=== PATIENT | female | born 1955 | race Caucasian/White ===

== ENCOUNTER → 2019-06-06 12:52 | Outpatient (CLI) | payer OTHER, SELFPAY ==
[2019-06-06 13:28] LABS: D Dimer 201 ng/mL (<230)
== END ==
PROVIDERS: PCP Physician Assistant; Visit Provider Physician Assistant
DX: R06.02 Shortness of breath (principal)
CPT/HCPCS: 36415; 85379

== ENCOUNTER → 2020-06-14 11:07 | Outpatient (CLI) | payer MEDICARE, OTHER, SELFPAY ==
--- NOTE | 2020-06-14 | DI.RAD.S_ITS ---
PROCEDURE: XR SHOULDER RT MIN 2V INDICATIONS: BILATERAL SHOULDER PAIN TECHNIQUE: 3 views of the shoulder were acquired. COMPARISON: None. FINDINGS: Bones: No fracture. [id number] right shoulder joint degeneration at the AC and glenohumeral articulation. Scattered degenerative subchondral sclerosis and spurring. Soft tissues: No suspicious soft tissue calcifications. IMPRESSION: Right shoulder joint degeneration. If the patient's pain or other symptoms persist, consider further evaluation with MRI Dictated by: Prince Aranda M.D. on 06/14/2020 at 12:39 Approved by: Prince Aranda M.D. on 06/14/2020 at 12:43
--- NOTE | 2020-06-14 | DI.RAD.S_ITS ---
PROCEDURE: XR SHOULDER LT MIN 2V INDICATIONS: BILATERAL SHOULDER PAIN TECHNIQUE: 3 views of the shoulder were acquired. COMPARISON: None. FINDINGS: Bones: No fractures or dislocations. No suspicious bony lesions. Visualized ribs appear intact. AC and glenohumeral joint degeneration, moderate. Soft tissues: No suspicious soft tissue calcifications. IMPRESSION: Moderate left shoulder joint degeneration. If the patient's pain or other symptoms persist, consider further evaluation with MRI Dictated by: Prince Aranda M.D. on 06/14/2020 at 12:43 Approved by: Prince Aranda M.D. on 06/14/2020 at 12:46
== END ==
PROVIDERS: PCP Physician Assistant; Referring Provider Physician Assistant; Visit Provider Physician Assistant
DX: M77.9 Enthesopathy, unspecified (principal); M25.512 Pain in left shoulder; M25.511 Pain in right shoulder; M19.011 Primary osteoarthritis, right shoulder; M19.012 Primary osteoarthritis, left shoulder
CPT/HCPCS: 73030

== ENCOUNTER 2020-09-27 11:15 | Outpatient (RCR) | payer MEDICARE, OTHER, SELFPAY ==
--- NOTE | 2020-07-16 16:15 | PT.OIE ---
Current Diagnoses Enthesopathy, unspecified (07/16/20) Visit Care Team Role Provider Type Neema Mac PA-C Attending Provider Non-Staff Family Provider Primary Care Provider Referring Provider Specialty: Internal Medicine Address: [address] [place] [address], [id number] Email: Physical Therapy Initial Evaluation PT-OP-A Visit Information Start: 07/16/20 08:10 Freq: Status: Active Protocol: Document 07/16/20 15:42 HH (Rec: 07/16/20 16:15 HH [email or web address]) Out-Patient Physical Therapy Visit Information Visit Information Visit Type Initial Evaluation Visit Start Time 11:15 Visit Stop Time 12:00 Total Visit Minutes 45 Visit Number 07/30 Number of INTERNET SALES ASSOCIATE Visits 0 Evaluation Information Evaluation Date 07/16/20 PT-OP-B Current Condition Start: 07/16/20 08:10 Freq: Status: Active Protocol: Document 07/16/20 15:42 HH (Rec: 07/16/20 16:15 HH [email or web address]) Current Condition History of Current Condition Onset Date a year ago Current Complaints Bilateral shoulder pain L>R, unable to reach overhead and her back History of Current Condition This is a 64 yo female here for worsening bilateral shoulder pain, L slightly worse than R. She stated she has been having shoulder pain for many years but it has been getting significantly worse since a year ago but she does not know why. Her pain is 3/10 normally. She can not lift her arms over 90 abduction and needs to external rotate her arm to reach overhead but with pain. She is unable to reach for her 2nd level of the shelf for cups and glasses. Her pain also keeps her awake at night who is unable to sleep on her side now. She also difficulty fernando/ doff her bra and shirts d/t limited mobility and pain. She does have shooting pain/ numbness down his elbow and pinky finger occasionally. Pt loves skiing and would like to return to this hobby once COVID pandemic is over. Prior Treatments and Tests X-ray R [facility] 06/14/20 IMPRESSION: Right shoulder joint degeneration. If the patient's pain or other symptoms persist, consider further evaluation with MRI X-ray L [facility] 06/14/20 IMPRESSION: Moderate left shoulder joint degeneration. If the patient's pain or other symptoms persist, consider further evaluation with MRI Treatment Goals Patient/Caregiver Goals 1. to regain her shoulder mobility so she can reach overhead 2. to regain her shoulder strength so she can return to skiing PT-OP-C Subjective Start: 07/16/20 08:10 Freq: Status: Active Protocol: Document 07/16/20 15:42 (Rec: 07/16/20 16:15 [email or web address]) Patient Questionnaires Quick Dash- Upper Extremity Quick Dash UE Score 31.81 Quick Dash UE Impairment 20 to 39% Impaired (Score 20- 39) PT-OP-E Functional Tests Start: 07/16/20 08:10 Freq: Status: Active Protocol: Document 07/16/20 15:42 (Rec: 07/16/20 16:15 [email or web address]) Functional Tests Apley's Scratch Test Action 1- Left pain at AC joint region Action 1- Right WFL, no pain Action 2- Left L upper trap d/t pain Action 2- Right T2 Action 3- Left L SIJ Action 3- Right R SIJ PT-OP-F Manual Assessment Start: 07/16/20 08:10 Freq: Status: Active Protocol: Document 07/16/20 15:42 (Rec: 07/16/20 16:15 [email or web address]) Manual Assessments Soft Tissue Assessment Soft Tissue Mobility Assessment tenderness noted with mod pressure at infraspinatus and teres minor bilaterally PT-OP-K Range of Motion Start: 07/16/20 08:10 Freq: Status: Active Protocol: Document 07/16/20 15:42 (Rec: 07/16/20 16:15 [email or web address]) Cervical Spine Range of Motion Cervical Spine Active Degrees Testing Position Sitting Lateral Flexion Left 16 Lateral Flexion Right 26 ROM Limitations Soft Tissue Tightness,Pain Comments radiating pain and numbness at 5th digit (R worse than L) Shoulder Goniometric Range of Motion Shoulder Right Active Shoulder ROM WFL No Testing Position Sitting Flexion 137 Extension 40 Abduction 105 External Rotation at 90 degrees 47 Abduction Internal Rotation 66 Left Active Shoulder ROM WFL No Testing Position Standing Flexion 140 Extension 36 Abduction 100 External Rotation at 90 degrees 74 Abduction Internal Rotation 76 Comments pain abd> flexion> IR/ER and extension Shoulder ROM Limitations Shoulder ROM Limitations Soft Tissue Tightness,Muscle Weakness,Pain PT-OP-L Special Tests Start: 07/16/20 08:10 Freq: Status: Active Protocol: Document 07/16/20 15:42 (Rec: 07/16/20 16:15 [email or web address]) Special Tests Cervical Spine Special Tests Spurling's Test Test Results +VE B Comments R> L, tingling sensation at 5th digit Shoulder Special Tests Drop Arm Rotator Cuff Test Results -ve Empty Can Test Results -ve Neer Impingement Test Results +VE L PT-OP-M Strength Start: 07/16/20 08:10 Freq: Status: Active Protocol: Document 07/16/20 15:42 (Rec: 07/16/20 16:15 [email or web address]) Shoulder Strength Shoulder Manual Muscle Testing Right Flexion 4- Good- Extension 3+ Fair+ Abduction (C5) 3+ Fair+ Adduction 4- Good- External Rotation 4- Good- Internal Rotation 4- Good- Left Flexion 4- Good- Extension 3+ Fair+ Abduction (C5) 3+ Fair+ External Rotation 3+ Fair+ Internal Rotation 3+ Fair+ PT-OP-Q Treatments Start: 07/16/20 08:10 Freq: Status: Active Protocol: Document 07/16/20 15:42 (Rec: 07/16/20 16:15 [email or web address]) Self-Care/Home Management Treatment Education Patient Education Body Mechanics,Home Exercise Program,Joint Protection,Pain Management,Posture,Safety Other Education educated pt to acquire overhead roger for HEP. Explained PT role, POC and prognosis. PT-OP-T Assessment and Plan Start: 07/16/20 08:10 Freq: Status: Active Protocol: Document 07/16/20 15:42 (Rec: 07/16/20 16:15 [email or web address]) Physical Therapy Assessment Rehab Potential Rehabilitation Potential Excellent Evaluation Complexity Number of Personal Factors/Comorbidities 1-2 Number of Body Systems Impaired 1-2 Clinical Presentation at Evaluation Stable Impairments Impairments Activity Tolerance,Functional Activities,Functional Mobility ,Pain,Posture,ROM,Sensation, Soft Tissue Mobility,Strength Goals sleep Impairment pt currently is unable to sleep on her side d/t pain Anatomic Pathology Manager Goal (LTG) pt will be able to sleep either her L/R side with no complaints of discomfort. LTG Duration 12 weeks neuro-sign Impairment reports of tingling and numbness down her pinky fingers Skilled Nursing Goal (LTG) pt will not have tingling/ numbness down to her pinky fingers by improving her neural sensitivity. LTG Duration 12 weeks ROM Impairment pt lacks of ROM in all different anatomical planes Short Term Goal (STG) pt will gain > 10 degrees of ROM in all different planes to improve her mobility STG Duration 6 weeks Anatomic Pathology Manager Goal (LTG) pt will gain > 15 degrees of ROM in all different planes so she can reach the second level of the shelf for cups/ glassess LTG Duration 12 weeks Quickdash Impairment pt scores 31.81 on 1/5 Short Term Goal (STG) pt will score lower than 25 on quickdash to improver her overall shoulder functionality STG Duration 6 weeks Anatomic Pathology Manager Goal (LTG) pt will score lower than 20 on Quickdash to improve her pain , mobility and strength so she can return to skiiing. LTG Duration 12 weeks Assessment Summary Assessment This is a 64yo female here for B shoulder pain >1 year, along with neurological signs to her pinky fingers. Upon assessment, pt presents bilateral frozen shoulders who has very limited AROM Abd> flexion> extension > IR/ER bilaterally, along with strength loss. She also has possible cervical radiculopathy d/t experiencing tingling and numbness sensation bilaterally with cervical lateral flexion to L/ R and Spurling test. Pt will benefit from skilled therapy to improve her neural sensitivity, shoulder ROM, strength in order for her to have better sleep, overhead mobility and retrun to her hobby--skiing. Physical Therapy Plan Frequency and Duration Frequency of Treatment 2x/wk x 8 then 1x/wk Duration of Treatment 12 weeks Plan of Care Start Date 07/16/19 Plan of Care End Date 10/14/20 Therapeutic Interventions Therapeutic Interventions Home Exercise Program,Joint Mobilizations,Manual Therapy, Neuromuscular Re-education, Patient/Caregiver Education, Self-Care/Home Management,Soft Tissue Mobilization,Taping, Therapeutic Activities, Therapeutic Exercises Modalities Cold Pack/Ice Massage,Electric Stimulation,Hot Packs, Infrared Therapy,Traction- Mechanical,Ultrasound Next Visit Focus/Plan Next Note Type Treatment Note Next Visit Plan OH roger, PROM, AROM cervical distraction door stretch neck stretch (lateral flexion) ulnar nerve glide
--- NOTE | 2020-07-16 16:16 | PT.OPPOC ---
Physical, Occupational & Speech Therapy At [facility] Current Diagnoses Enthesopathy, unspecified (07/16/20) Visit Care Team Role Provider Type Neeam Mac PA-C Attending Provider Non-Staff Family Provider Primary Care Provider Referring Provider Specialty: Internal Medicine Address: [address] [place] [address], [id number] Email: Plan Of Care PT-OP-T Assessment and Plan Start: 07/16/20 08:10 Freq: Status: Active Protocol: Document 07/16/20 15:42 (Rec: 07/16/20 16:15 [email or web address]) Physical Therapy Assessment Rehab Potential Rehabilitation Potential Excellent Evaluation Complexity Number of Personal Factors/Comorbidities 1-2 Number of Body Systems Impaired 1-2 Clinical Presentation at Evaluation Stable Impairments Impairments Activity Tolerance,Functional Activities,Functional Mobility ,Pain,Posture,ROM,Sensation, Soft Tissue Mobility,Strength Goals sleep Impairment pt currently is unable to sleep on her side d/t pain Rug Repairer Goal (LTG) pt will be able to sleep either her L/R side with no complaints of discomfort. LTG Duration 12 weeks neuro-sign Impairment reports of tingling and numbness down her pinky fingers Long-Term Goal (LTG) pt will not have tingling/ numbness down to her pinky fingers by improving her neural sensitivity. LTG Duration 12 weeks ROM Impairment pt lacks of ROM in all different anatomical planes Short Term Goal (STG) pt will gain > 10 degrees of ROM in all different planes to improve her mobility STG Duration 6 weeks Rug Repairer Goal (LTG) pt will gain > 15 degrees of ROM in all different planes so she can reach the second level of the shelf for cups/ glassess LTG Duration 12 weeks Quickdash Impairment pt scores 31.81 on 1/5 Short Term Goal (STG) pt will score lower than 25 on quickdash to improver her overall shoulder functionality STG Duration 6 weeks Long-Term Goal (LTG) pt will score lower than 20 on Quickdash to improve her pain , mobility and strength so she can return to skiiing. LTG Duration 12 weeks Assessment Summary Assessment This is a 64yo female here for B shoulder pain >1 year, along with neurological signs to her pinky fingers. Upon assessment, pt presents bilateral frozen shoulders who has very limited AROM Abd> flexion> extension > IR/ER bilaterally, along with strength loss. She also has possible cervical radiculopathy d/t experiencing tingling and numbness sensation bilaterally with cervical lateral flexion to L/ R and Spurling test. Pt will benefit from skilled therapy to improve her neural sensitivity, shoulder ROM, strength in order for her to have better sleep, overhead mobility and retrun to her hobby--skiing. Physical Therapy Plan Frequency and Duration Frequency of Treatment 2x/wk x 8 then 1x/wk Duration of Treatment 12 weeks Plan of Care Start Date 07/16/19 Plan of Care End Date 10/14/20 Therapeutic Interventions Therapeutic Interventions Home Exercise Program,Joint Mobilizations,Manual Therapy, Neuromuscular Re-education, Patient/Caregiver Education, Self-Care/Home Management,Soft Tissue Mobilization,Taping, Therapeutic Activities, Therapeutic Exercises Modalities Cold Pack/Ice Massage,Electric Stimulation,Hot Packs, Infrared Therapy,Traction- Mechanical,Ultrasound Next Visit Focus/Plan Next Note Type Treatment Note Next Visit Plan OH roger, PROM, AROM cervical distraction door stretch neck stretch (lateral flexion) ulnar nerve glide Plan of Care Dates Plan of Care Start Date 07/16/19 Plan of Care End Date 10/14/20 Electronically Signed by: Renetta Worrell PT 07/16/20 [id number] Please Sign and Return: I have reviewed this Plan of Care and certify that the skilled therapy services above are required to meet the patient?s needs. Physician Signature Date Printed Name and Credentials Clinical Instructor Signature Printed Name and Credentials
--- NOTE | 2020-07-18 16:14 | PT.OTN ---
Current Diagnoses Enthesopathy, unspecified (07/18/20) Physical Therapy Treatment Note PT-OP-A Visit Information Start: 07/16/20 08:10 Freq: Status: Active Protocol: Document 07/18/20 14:33 HH (Rec: 07/18/20 16:07 [id number]) Out-Patient Physical Therapy Visit Information Visit Information Visit Type Treatment Note Visit Start Time 14:33 Visit Stop Time 15:15 Total Visit Minutes 43 Visit Number / Number of CLAM GROWER Visits 0 PT-OP-B Current Condition Start: 07/16/20 08:10 Freq: Status: Active Protocol: Document 07/16/20 15:42 HH (Rec: 07/16/20 16:15 [email or web address]) Current Condition History of Current Condition Onset Date a year ago Current Complaints Bilateral shoulder pain L>R, unable to reach overhead and her back History of Current Condition This is a 64 yo female here for worsening bilateral shoulder pain, L slightly worse than R. She stated she has been having shoulder pain for many years but it has been getting significantly worse since a year ago but she does not know why. Her pain is 3/10 normally. She can not lift her arms over 90 abduction and needs to external rotate her arm to reach overhead but with pain. She is unable to reach for her 2nd level of the shelf for cups and glasses. Her pain also keeps her awake at night who is unable to sleep on her side now. She also difficulty fernando/ doff her bra and shirts d/t limited mobility and pain. She does have shooting pain/ numbness down his elbow and pinky finger occasionally. Pt loves skiing and would like to return to this hobby once COVID pandemic is over. Prior Treatments and Tests X-ray R d 06/14/20 IMPRESSION: Right shoulder joint degeneration. If the patient's pain or other symptoms persist, consider further evaluation with MRI X-ray L [facility] 06/14/20 IMPRESSION: Moderate left shoulder joint degeneration. If the patient's pain or other symptoms persist, consider further evaluation with MRI Treatment Goals Patient/Caregiver Goals 1. to regain her shoulder mobility so she can reach overhead 2. to regain her shoulder strength so she can return to skiing PT-OP-C Subjective Start: 07/16/20 08:10 Freq: Status: Active Protocol: Document 07/18/20 14:33 (Rec: 07/18/20 16:07 [id number]) OP-PT Subjective Patient Comments Patient Comments Im excited for starting PT PT-OP-E Functional Tests Start: 07/16/20 08:10 Freq: Status: Active Protocol: Document 07/16/20 15:42 (Rec: 07/16/20 16:15 [email or web address]) Functional Tests Apley's Scratch Test Action 1- Left pain at AC joint region Action 1- Right WFL, no pain Action 2- Left L upper trap d/t pain Action 2- Right T2 Action 3- Left L SIJ Action 3- Right R SIJ PT-OP-F Manual Assessment Start: 07/16/20 08:10 Freq: Status: Active Protocol: Document 07/16/20 15:42 (Rec: 07/16/20 16:15 [email or web address]) Manual Assessments Soft Tissue Assessment Soft Tissue Mobility Assessment tenderness noted with mod pressure at infraspinatus and teres minor bilaterally PT-OP-K Range of Motion Start: 07/16/20 08:10 Freq: Status: Active Protocol: Document 07/16/20 15:42 (Rec: 07/16/20 16:15 [email or web address]) Cervical Spine Range of Motion Cervical Spine Active Degrees Testing Position Sitting Lateral Flexion Left 16 Lateral Flexion Right 26 ROM Limitations Soft Tissue Tightness,Pain Comments radiating pain and numbness at 5th digit (R worse than L) Shoulder Goniometric Range of Motion Shoulder Right Active Shoulder ROM WFL No Testing Position Sitting Flexion 137 Extension 40 Abduction 105 External Rotation at 90 degrees 47 Abduction Internal Rotation 66 Left Active Shoulder ROM WFL No Testing Position Standing Flexion 140 Extension 36 Abduction 100 External Rotation at 90 degrees 74 Abduction Internal Rotation 76 Comments pain abd> flexion> IR/ER and extension Shoulder ROM Limitations Shoulder ROM Limitations Soft Tissue Tightness,Muscle Weakness,Pain PT-OP-L Special Tests Start: 07/16/20 08:10 Freq: Status: Active Protocol: Document 07/16/20 15:42 (Rec: 07/16/20 16:15 [email or web address]) Special Tests Cervical Spine Special Tests Spurling's Test Test Results +VE B Comments R> L, tingling sensation at 5th digit Shoulder Special Tests Drop Arm Rotator Cuff Test Results -ve Empty Can Test Results -ve Neer Impingement Test Results +VE L PT-OP-M Strength Start: 07/16/20 08:10 Freq: Status: Active Protocol: Document 07/16/20 15:42 (Rec: 07/16/20 16:15 [email or web address]) Shoulder Strength Shoulder Manual Muscle Testing Right Flexion 4- Good- Extension 3+ Fair+ Abduction (C5) 3+ Fair+ Adduction 4- Good- External Rotation 4- Good- Internal Rotation 4- Good- Left Flexion 4- Good- Extension 3+ Fair+ Abduction (C5) 3+ Fair+ External Rotation 3+ Fair+ Internal Rotation 3+ Fair+ PT-OP-Q Treatments Start: 07/16/20 08:10 Freq: Status: Active Protocol: Document 07/18/20 14:33 (Rec: 07/18/20 16:07 [id number]) Therapeutic Exercises Supine Exercises supine chest stretch Equipment Used with foam roller Comments for HEP tennis ball Supine Exercise Name on infraspinatus Side bilateral Comments for HEP Sitting Exercises upper trap stretch Side bilateral Comments cervical lateral flexion, HEP OH roger Sitting Exercise Name flexion, abduction and reaching behind back Side bilateral Equipment Used OH roger Comments for HEP Manual Therapy Treatment Soft Tissue Mobilization RTC Body Location infraspinatus Mobilization Type Sustained Pressure,Trigger Point Release Intensity/Depth Moderate Body Position Sidelying Comments significant tightness but improved after pecs Body Location major and minor Mobilization Type Sustained Pressure,Trigger Point Release Intensity/Depth Moderate Body Position Supine Comments significant tightness but improved after PT-OP-T Assessment and Plan Start: 07/16/20 08:10 Freq: Status: Active Protocol: Document 07/18/20 14:33 (Rec: 07/18/20 16:07 [id number]) Physical Therapy Assessment Goals sleep Impairment pt currently is unable to sleep on her side d/t pain Live Study Manager Goal (LTG) pt will be able to sleep either her L/R side with no complaints of discomfort. LTG Duration 12 weeks neuro-sign Impairment reports of tingling and numbness down her pinky fingers Live Study Manager Goal (LTG) pt will not have tingling/ numbness down to her pinky fingers by improving her neural sensitivity. LTG Duration 12 weeks ROM Impairment pt lacks of ROM in all different anatomical planes Short Term Goal (STG) pt will gain > 10 degrees of ROM in all different planes to improve her mobility STG Duration 6 weeks Live Study Manager Goal (LTG) pt will gain > 15 degrees of ROM in all different planes so she can reach the second level of the shelf for cups/ glassess LTG Duration 12 weeks Quickdash Impairment pt scores 31.81 on 1/5 Short Term Goal (STG) pt will score lower than 25 on quickdash to improver her overall shoulder functionality STG Duration 6 weeks [facility] Goal (LTG) pt will score lower than 20 on Quickdash to improve her pain , mobility and strength so she can return to skiiing. LTG Duration 12 weeks Assessment Summary Assessment Pt lucas session which focuses on manual therapy to reduce tightness RTC and pecs tightness. Pt has immediate improved AROM after. Added pulleys, tennis ball release, pecs stretch for HEP. Physical Therapy Plan Frequency and Duration Frequency of Treatment 2x/wk x 8 then 1x/wk Duration of Treatment 12 weeks Plan of Care Start Date 07/16/19 Plan of Care End Date 10/14/20 Next Visit Focus/Plan Next Note Type Treatment Note Next Visit Plan OH roger, PROM, AROM cervical distraction door stretch neck stretch (lateral flexion) ulnar nerve glide
--- NOTE | 2020-07-22 16:13 | PT.OTN ---
Current Diagnoses Enthesopathy, unspecified (07/22/20) Physical Therapy Treatment Note PT-OP-A Visit Information Start: 07/16/20 08:10 Freq: Status: Active Protocol: Document 07/22/20 14:35 HH (Rec: 07/22/20 16:12 [id number]) Out-Patient Physical Therapy Visit Information Visit Information Visit Type Treatment Note Visit Start Time 14:31 Visit Stop Time 15:15 Total Visit Minutes 44 Visit Number 09/27 Number of ENERGY SCHEDULER Visits 0 PT-OP-B Current Condition Start: 07/16/20 08:10 Freq: Status: Active Protocol: Document 07/16/20 15:42 HH (Rec: 07/16/20 16:15 [email or web address]) Current Condition History of Current Condition Onset Date a year ago Current Complaints Bilateral shoulder pain L>R, unable to reach overhead and her back History of Current Condition This is a 64 yo female here for worsening bilateral shoulder pain, L slightly worse than R. She stated she has been having shoulder pain for many years but it has been getting significantly worse since a year ago but she does not know why. Her pain is 3/10 normally. She can not lift her arms over 90 abduction and needs to external rotate her arm to reach overhead but with pain. She is unable to reach for her 2nd level of the shelf for cups and glasses. Her pain also keeps her awake at night who is unable to sleep on her side now. She also difficulty fernando/ doff her bra and shirts d/t limited mobility and pain. She does have shooting pain/ numbness down his elbow and pinky finger occasionally. Pt loves skiing and would like to return to this hobby once COVID pandemic is over. Prior Treatments and Tests X-ray R d 06/14/20 IMPRESSION: Right shoulder joint degeneration. If the patient's pain or other symptoms persist, consider further evaluation with MRI X-ray L [facility] 06/14/20 IMPRESSION: Moderate left shoulder joint degeneration. If the patient's pain or other symptoms persist, consider further evaluation with MRI Treatment Goals Patient/Caregiver Goals 1. to regain her shoulder mobility so she can reach overhead 2. to regain her shoulder strength so she can return to skiing PT-OP-C Subjective Start: 07/16/20 08:10 Freq: Status: Active Protocol: Document 07/22/20 14:35 (Rec: 07/22/20 16:12 [id number]) OP-PT Subjective Patient Comments Patient Comments My R shoulder is already getting better and i do have soreness around my shoulders but my tingling and numbness on R side is better too. Patient Reported Progress Improving PT-OP-E Functional Tests Start: 07/16/20 08:10 Freq: Status: Active Protocol: Document 07/16/20 15:42 (Rec: 07/16/20 16:15 [email or web address]) Functional Tests Apley's Scratch Test Action 1- Left pain at AC joint region Action 1- Right WFL, no pain Action 2- Left L upper trap d/t pain Action 2- Right T2 Action 3- Left L SIJ Action 3- Right R SIJ PT-OP-F Manual Assessment Start: 07/16/20 08:10 Freq: Status: Active Protocol: Document 07/16/20 15:42 (Rec: 07/16/20 16:15 [email or web address]) Manual Assessments Soft Tissue Assessment Soft Tissue Mobility Assessment tenderness noted with mod pressure at infraspinatus and teres minor bilaterally PT-OP-K Range of Motion Start: 07/16/20 08:10 Freq: Status: Active Protocol: Document 07/16/20 15:42 (Rec: 07/16/20 16:15 [email or web address]) Cervical Spine Range of Motion Cervical Spine Active Degrees Testing Position Sitting Lateral Flexion Left 16 Lateral Flexion Right 26 ROM Limitations Soft Tissue Tightness,Pain Comments radiating pain and numbness at 5th digit (R worse than L) Shoulder Goniometric Range of Motion Shoulder Right Active Shoulder ROM WFL No Testing Position Sitting Flexion 137 Extension 40 Abduction 105 External Rotation at 90 degrees 47 Abduction Internal Rotation 66 Left Active Shoulder ROM WFL No Testing Position Standing Flexion 140 Extension 36 Abduction 100 External Rotation at 90 degrees 74 Abduction Internal Rotation 76 Comments pain abd> flexion> IR/ER and extension Shoulder ROM Limitations Shoulder ROM Limitations Soft Tissue Tightness,Muscle Weakness,Pain PT-OP-L Special Tests Start: 07/16/20 08:10 Freq: Status: Active Protocol: Document 07/16/20 15:42 (Rec: 07/16/20 16:15 [email or web address]) Special Tests Cervical Spine Special Tests Spurling's Test Test Results +VE B Comments R> L, tingling sensation at 5th digit Shoulder Special Tests Drop Arm Rotator Cuff Test Results -ve Empty Can Test Results -ve Neer Impingement Test Results +VE L PT-OP-M Strength Start: 07/16/20 08:10 Freq: Status: Active Protocol: Document 07/16/20 15:42 HH (Rec: 07/16/20 16:15 HH [email or web address]) Shoulder Strength Shoulder Manual Muscle Testing Right Flexion 4- Good- Extension 3+ Fair+ Abduction (C5) 3+ Fair+ Adduction 4- Good- External Rotation 4- Good- Internal Rotation 4- Good- Left Flexion 4- Good- Extension 3+ Fair+ Abduction (C5) 3+ Fair+ External Rotation 3+ Fair+ Internal Rotation 3+ Fair+ PT-OP-Q Treatments Start: 07/16/20 08:10 Freq: Status: Active Protocol: Document 07/22/20 14:35 HH (Rec: 07/22/20 16:12 [id number]) Cardio Equipment Upper Body Ergometer (UBE) Duration (Minutes) 5 Other change direction at 1min interval Therapeutic Exercises Supine Exercises supine chest stretch Equipment Used with foam roller Comments for HEP Sidelying Exercises open book Sidelying Exercise Name for HEP Side bilateral Comments R side up to 100 degrees, L side up to 90 degrees Sitting Exercises upper trap stretch Side bilateral Comments cervical lateral flexion, HEP OH roger Sitting Exercise Name flexion, abduction and reaching behind back Side bilateral Equipment Used OH roger Reps/Minutes 4 mins Comments improved ROM noted. Manual Therapy Treatment Soft Tissue Mobilization upper trap Mobilization Type Sustained Pressure,Trigger Point Release Intensity/Depth Moderate Body Position Supine RTC Body Location infraspinatus Mobilization Type Sustained Pressure,Trigger Point Release Intensity/Depth Moderate Body Position Sidelying Comments significant tightness but improved after pecs Body Location major and minor Mobilization Type Sustained Pressure,Trigger Point Release Intensity/Depth Moderate Body Position Supine Comments significant tightness but improved after PT-OP-T Assessment and Plan Start: 07/16/20 08:10 Freq: Status: Active Protocol: Document 07/22/20 14:35 HH (Rec: 07/22/20 16:12 [id number]) Physical Therapy Assessment Goals sleep Impairment pt currently is unable to sleep on her side d/t pain Correction Goal (LTG) pt will be able to sleep either her L/R side with no complaints of discomfort. LTG Duration 12 weeks neuro-sign Impairment reports of tingling and numbness down her pinky fingers Correction Goal (LTG) pt will not have tingling/ numbness down to her pinky fingers by improving her neural sensitivity. LTG Duration 12 weeks ROM Impairment pt lacks of ROM in all different anatomical planes Short Term Goal (STG) pt will gain > 10 degrees of ROM in all different planes to improve her mobility STG Duration 6 weeks Correction Goal (LTG) pt will gain > 15 degrees of ROM in all different planes so she can reach the second level of the shelf for cups/ glassess LTG Duration 12 weeks Quickdash Impairment pt scores 31.81 on 1/5 Short Term Goal (STG) pt will score lower than 25 on quickdash to improver her overall shoulder functionality STG Duration 6 weeks Correction Goal (LTG) pt will score lower than 20 on Quickdash to improve her pain , mobility and strength so she can return to skiiing. LTG Duration 12 weeks Assessment Summary Assessment Pt shows improved symptoms and ROM especially on R shoulder. Pt has significant tightness at B pecs and her open book ex only able to reach ~90-100 degrees. Added that to HEP. Physical Therapy Plan Frequency and Duration Frequency of Treatment 2x/wk x 8 then 1x/wk Duration of Treatment 12 weeks Plan of Care Start Date 07/16/19 Plan of Care End Date 10/14/20 Next Visit Focus/Plan Next Note Type Treatment Note Next Visit Plan open book, OH roger, PROM, AROM cervical distraction door stretch neck stretch (lateral flexion) ulnar nerve glide
--- NOTE | 2020-07-25 12:20 | PT.OTN ---
Current Diagnoses Enthesopathy, unspecified (07/25/20) Physical Therapy Treatment Note PT-OP-A Visit Information Start: 07/16/20 08:10 Freq: Status: Active Protocol: Document 07/25/20 12:14 HH (Rec: 07/25/20 12:20 HH [email or web address]) Out-Patient Physical Therapy Visit Information Visit Information Visit Type Treatment Note Visit Start Time 11:15 Visit Stop Time 12:05 Total Visit Minutes 50 Visit Number / Number of BOAT OUTBOARD ENGINE MECHANIC Visits 0 PT-OP-B Current Condition Start: 07/16/20 08:10 Freq: Status: Active Protocol: Document 07/16/20 15:42 HH (Rec: 07/16/20 16:15 HH [email or web address]) Current Condition History of Current Condition Onset Date a year ago Current Complaints Bilateral shoulder pain L>R, unable to reach overhead and her back History of Current Condition This is a 64 yo female here for worsening bilateral shoulder pain, L slightly worse than R. She stated she has been having shoulder pain for many years but it has been getting significantly worse since a year ago but she does not know why. Her pain is 3/10 normally. She can not lift her arms over 90 abduction and needs to external rotate her arm to reach overhead but with pain. She is unable to reach for her 2nd level of the shelf for cups and glasses. Her pain also keeps her awake at night who is unable to sleep on her side now. She also difficulty fernando/ doff her bra and shirts d/t limited mobility and pain. She does have shooting pain/ numbness down his elbow and pinky finger occasionally. Pt loves skiing and would like to return to this hobby once COVID pandemic is over. Prior Treatments and Tests X-ray R d 06/14/20 IMPRESSION: Right shoulder joint degeneration. If the patient's pain or other symptoms persist, consider further evaluation with MRI X-ray L d 06/14/20 IMPRESSION: Moderate left shoulder joint degeneration. If the patient's pain or other symptoms persist, consider further evaluation with MRI Treatment Goals Patient/Caregiver Goals 1. to regain her shoulder mobility so she can reach overhead 2. to regain her shoulder strength so she can return to skiing PT-OP-C Subjective Start: 07/16/20 08:10 Freq: Status: Active Protocol: Document 07/25/20 12:14 (Rec: 07/25/20 12:20 [email or web address]) OP-PT Subjective Patient Comments Patient Comments My R shoulder is getting better and L shoulder is slower. My midback got a little sore but thats okay. I also noticed i have some neck tightness lately. Patient Reported Progress Improving PT-OP-E Functional Tests Start: 07/16/20 08:10 Freq: Status: Active Protocol: Document 07/16/20 15:42 (Rec: 07/16/20 16:15 [email or web address]) Functional Tests Apley's Scratch Test Action 1- Left pain at AC joint region Action 1- Right WFL, no pain Action 2- Left L upper trap d/t pain Action 2- Right T2 Action 3- Left L SIJ Action 3- Right R SIJ PT-OP-F Manual Assessment Start: 07/16/20 08:10 Freq: Status: Active Protocol: Document 07/16/20 15:42 (Rec: 07/16/20 16:15 [email or web address]) Manual Assessments Soft Tissue Assessment Soft Tissue Mobility Assessment tenderness noted with mod pressure at infraspinatus and teres minor bilaterally PT-OP-K Range of Motion Start: 07/16/20 08:10 Freq: Status: Active Protocol: Document 07/16/20 15:42 (Rec: 07/16/20 16:15 [email or web address]) Cervical Spine Range of Motion Cervical Spine Active Degrees Testing Position Sitting Lateral Flexion Left 16 Lateral Flexion Right 26 ROM Limitations Soft Tissue Tightness,Pain Comments radiating pain and numbness at 5th digit (R worse than L) Shoulder Goniometric Range of Motion Shoulder Right Active Shoulder ROM WFL No Testing Position Sitting Flexion 137 Extension 40 Abduction 105 External Rotation at 90 degrees 47 Abduction Internal Rotation 66 Left Active Shoulder ROM WFL No Testing Position Standing Flexion 140 Extension 36 Abduction 100 External Rotation at 90 degrees 74 Abduction Internal Rotation 76 Comments pain abd> flexion> IR/ER and extension Shoulder ROM Limitations Shoulder ROM Limitations Soft Tissue Tightness,Muscle Weakness,Pain PT-OP-L Special Tests Start: 07/16/20 08:10 Freq: Status: Active Protocol: Document 07/16/20 15:42 (Rec: 07/16/20 16:15 [email or web address]) Special Tests Cervical Spine Special Tests Spurling's Test Test Results +VE B Comments R> L, tingling sensation at 5th digit Shoulder Special Tests Drop Arm Rotator Cuff Test Results -ve Empty Can Test Results -ve Neer Impingement Test Results +VE L PT-OP-M Strength Start: 07/16/20 08:10 Freq: Status: Active Protocol: Document 07/16/20 15:42 HH (Rec: 07/16/20 16:15 HH [email or web address]) Shoulder Strength Shoulder Manual Muscle Testing Right Flexion 4- Good- Extension 3+ Fair+ Abduction (C5) 3+ Fair+ Adduction 4- Good- External Rotation 4- Good- Internal Rotation 4- Good- Left Flexion 4- Good- Extension 3+ Fair+ Abduction (C5) 3+ Fair+ External Rotation 3+ Fair+ Internal Rotation 3+ Fair+ PT-OP-Q Treatments Start: 07/16/20 08:10 Freq: Status: Active Protocol: Document 07/25/20 12:14 HH (Rec: 07/25/20 12:20 HH [email or web address]) Cardio Equipment Upper Body Ergometer (UBE) Duration (Minutes) 5 Other change direction at 1min interval Therapeutic Exercises Supine Exercises lateral flexion stretch Supine Exercise Name cervical lateral flexion Side bilateral Reps/Minutes 10 sec hold x 4 Comments no tignling numbness noted at hands Sidelying Exercises open book Side bilateral Comments R side up to 140 degrees, L up to 130 degrees Sitting Exercises OH roger Sitting Exercise Name flexion, abduction and reaching behind back Side bilateral Equipment Used OH roger Reps/Minutes 4 mins Comments R reach full flexion Manual Therapy Treatment Soft Tissue Mobilization suboccipital Mobilization Type Sustained Pressure,Trigger Point Release Intensity/Depth Moderate Body Position Supine upper trap Mobilization Type Sustained Pressure,Trigger Point Release Intensity/Depth Moderate Body Position Supine RTC Body Location infraspinatus Mobilization Type Sustained Pressure,Trigger Point Release Intensity/Depth Moderate Body Position Sidelying Comments significant tightness but improved after including subscapularis pecs Body Location major and minor Mobilization Type Sustained Pressure,Trigger Point Release Intensity/Depth Moderate Body Position Supine Comments significant tightness but improved after Manual Techniques ulnar nerve glide Type passively by PT assistance Body Position Supine Reps/Duration 5 mins Comments unable to reach full stretch position. up to hands 3-5 inches away from pt's face. Reports of numbness at pinky finger but subside after PT-OP-T Assessment and Plan Start: 07/16/20 08:10 Freq: Status: Active Protocol: Document 07/25/20 12:14 (Rec: 07/25/20 12:20 [email or web address]) Physical Therapy Assessment Goals sleep Impairment pt currently is unable to sleep on her side d/t pain Longterm Goal (LTG) pt will be able to sleep either her L/R side with no complaints of discomfort. LTG Duration 12 weeks neuro-sign Impairment reports of tingling and numbness down her pinky fingers Longterm Goal (LTG) pt will not have tingling/ numbness down to her pinky fingers by improving her neural sensitivity. LTG Duration 12 weeks ROM Impairment pt lacks of ROM in all different anatomical planes Short Term Goal (STG) pt will gain > 10 degrees of ROM in all different planes to improve her mobility STG Duration 6 weeks Longterm Goal (LTG) pt will gain > 15 degrees of ROM in all different planes so she can reach the second level of the shelf for cups/ glassess LTG Duration 12 weeks Quickdash Impairment pt scores 31.81 on 1/5 Short Term Goal (STG) pt will score lower than 25 on quickdash to improver her overall shoulder functionality STG Duration 6 weeks Grinding Room Supervisor Goal (LTG) pt will score lower than 20 on Quickdash to improve her pain , mobility and strength so she can return to skiiing. LTG Duration 12 weeks Assessment Summary Assessment Pt shows significant improvements on ROM and reduced neuro symptoms after manual therapy today. Will cont to follow this tx order : manual therapy > ROM, nerve glide > UBE. Physical Therapy Plan Frequency and Duration Frequency of Treatment 2x/wk x 8 then 1x/wk Duration of Treatment 12 weeks Plan of Care Start Date 07/16/19 Plan of Care End Date 10/14/20 Next Visit Focus/Plan Next Note Type Treatment Note Next Visit Plan open book, OH roger, PROM, AROM cervical distraction door stretch neck stretch (lateral flexion) ulnar nerve glide
--- NOTE | 2020-07-30 16:13 | PT.OTN ---
Current Diagnoses Enthesopathy, unspecified (07/30/20) Physical Therapy Treatment Note PT-OP-A Visit Information Start: 07/16/20 08:10 Freq: Status: Active Protocol: Document 07/30/20 15:16 HH (Rec: 07/30/20 16:12 [id number]) Out-Patient Physical Therapy Visit Information Visit Information Visit Type Treatment Note Visit Start Time 15:17 Visit Stop Time 16:00 Total Visit Minutes 43 Visit Number 11/27 Number of TEST EXAMINER Visits 0 PT-OP-B Current Condition Start: 07/16/20 08:10 Freq: Status: Active Protocol: Document 07/16/20 15:42 HH (Rec: 07/16/20 16:15 [email or web address]) Current Condition History of Current Condition Onset Date a year ago Current Complaints Bilateral shoulder pain L>R, unable to reach overhead and her back History of Current Condition This is a 64 yo female here for worsening bilateral shoulder pain, L slightly worse than R. She stated she has been having shoulder pain for many years but it has been getting significantly worse since a year ago but she does not know why. Her pain is 3/10 normally. She can not lift her arms over 90 abduction and needs to external rotate her arm to reach overhead but with pain. She is unable to reach for her 2nd level of the shelf for cups and glasses. Her pain also keeps her awake at night who is unable to sleep on her side now. She also difficulty fernando/ doff her bra and shirts d/t limited mobility and pain. She does have shooting pain/ numbness down his elbow and pinky finger occasionally. Pt loves skiing and would like to return to this hobby once COVID pandemic is over. Prior Treatments and Tests X-ray R d 06/14/20 IMPRESSION: Right shoulder joint degeneration. If the patient's pain or other symptoms persist, consider further evaluation with MRI X-ray L [facility] 06/14/20 IMPRESSION: Moderate left shoulder joint degeneration. If the patient's pain or other symptoms persist, consider further evaluation with MRI Treatment Goals Patient/Caregiver Goals 1. to regain her shoulder mobility so she can reach overhead 2. to regain her shoulder strength so she can return to skiing PT-OP-C Subjective Start: 07/16/20 08:10 Freq: Status: Active Protocol: Document 07/30/20 15:16 (Rec: 07/30/20 16:12 [email or web address]) OP-PT Subjective Patient Comments Patient Comments I got sore from last time and lasted for a day. More been feeling my muscle working a lot on my mid back. And my ROM are getting better. Patient Reported Progress Improving PT-OP-E Functional Tests Start: 07/16/20 08:10 Freq: Status: Active Protocol: Document 07/16/20 15:42 (Rec: 07/16/20 16:15 [email or web address]) Functional Tests Apley's Scratch Test Action 1- Left pain at AC joint region Action 1- Right WFL, no pain Action 2- Left L upper trap d/t pain Action 2- Right T2 Action 3- Left L SIJ Action 3- Right R SIJ PT-OP-F Manual Assessment Start: 07/16/20 08:10 Freq: Status: Active Protocol: Document 07/16/20 15:42 (Rec: 07/16/20 16:15 [email or web address]) Manual Assessments Soft Tissue Assessment Soft Tissue Mobility Assessment tenderness noted with mod pressure at infraspinatus and teres minor bilaterally PT-OP-K Range of Motion Start: 07/16/20 08:10 Freq: Status: Active Protocol: Document 07/16/20 15:42 (Rec: 07/16/20 16:15 [email or web address]) Cervical Spine Range of Motion Cervical Spine Active Degrees Testing Position Sitting Lateral Flexion Left 16 Lateral Flexion Right 26 ROM Limitations Soft Tissue Tightness,Pain Comments radiating pain and numbness at 5th digit (R worse than L) Shoulder Goniometric Range of Motion Shoulder Right Active Shoulder ROM WFL No Testing Position Sitting Flexion 137 Extension 40 Abduction 105 External Rotation at 90 degrees 47 Abduction Internal Rotation 66 Left Active Shoulder ROM WFL No Testing Position Standing Flexion 140 Extension 36 Abduction 100 External Rotation at 90 degrees 74 Abduction Internal Rotation 76 Comments pain abd> flexion> IR/ER and extension Shoulder ROM Limitations Shoulder ROM Limitations Soft Tissue Tightness,Muscle Weakness,Pain PT-OP-L Special Tests Start: 07/16/20 08:10 Freq: Status: Active Protocol: Document 07/16/20 15:42 (Rec: 07/16/20 16:15 [email or web address]) Special Tests Cervical Spine Special Tests Spurling's Test Test Results +VE B Comments R> L, tingling sensation at 5th digit Shoulder Special Tests Drop Arm Rotator Cuff Test Results -ve Empty Can Test Results -ve Neer Impingement Test Results +VE L PT-OP-M Strength Start: 07/16/20 08:10 Freq: Status: Active Protocol: Document 07/16/20 15:42 HH (Rec: 07/16/20 16:15 [email or web address]) Shoulder Strength Shoulder Manual Muscle Testing Right Flexion 4- Good- Extension 3+ Fair+ Abduction (C5) 3+ Fair+ Adduction 4- Good- External Rotation 4- Good- Internal Rotation 4- Good- Left Flexion 4- Good- Extension 3+ Fair+ Abduction (C5) 3+ Fair+ External Rotation 3+ Fair+ Internal Rotation 3+ Fair+ PT-OP-Q Treatments Start: 07/16/20 08:10 Freq: Status: Active Protocol: Document 07/30/20 15:16 HH (Rec: 07/30/20 16:12 [id number]) Therapeutic Exercises Supine Exercises scap squeeze Supine Exercise Name scap retraction Side bilateral Reps/Minutes 10 x2 foam roller Supine Exercise Name trunk at neutral position, hands behind head Equipment Used foam roller Sidelying Exercises open book Side bilateral Comments R side up to 140 degrees, L up to 130 degrees Sitting Exercises upper trap stretch Side bilateral Comments cervical lateral flexion, HEP OH roger Sitting Exercise Name extension, flexion, abduction and reaching behind back Side bilateral Equipment Used OH roger Reps/Minutes 4 mins Comments R reach full flexion Manual Therapy Treatment Soft Tissue Mobilization suboccipital Mobilization Type Sustained Pressure,Trigger Point Release Intensity/Depth Moderate Body Position Supine upper trap Mobilization Type Sustained Pressure,Trigger Point Release Intensity/Depth Moderate Body Position Supine RTC Body Location infraspinatus Mobilization Type Sustained Pressure,Trigger Point Release Intensity/Depth Moderate Body Position Sidelying Comments significant tightness but improved after including subscapularis pecs Body Location major and minor Mobilization Type Sustained Pressure,Trigger Point Release Intensity/Depth Moderate Body Position Supine Comments significant tightness but improved after PT-OP-T Assessment and Plan Start: 07/16/20 08:10 Freq: Status: Active Protocol: Document 07/30/20 15:16 (Rec: 07/30/20 16:12 [id number]) Physical Therapy Assessment Goals sleep Impairment pt currently is unable to sleep on her side d/t pain Director Medical Writing Goal (LTG) pt will be able to sleep either her L/R side with no complaints of discomfort. LTG Duration 12 weeks neuro-sign Impairment reports of tingling and numbness down her pinky fingers Jail Goal (LTG) pt will not have tingling/ numbness down to her pinky fingers by improving her neural sensitivity. LTG Duration 12 weeks ROM Impairment pt lacks of ROM in all different anatomical planes Short Term Goal (STG) pt will gain > 10 degrees of ROM in all different planes to improve her mobility STG Duration 6 weeks Jail Goal (LTG) pt will gain > 15 degrees of ROM in all different planes so she can reach the second level of the shelf for cups/ glassess LTG Duration 12 weeks Quickdash Impairment pt scores 31.81 on 1/5 Short Term Goal (STG) pt will score lower than 25 on quickdash to improver her overall shoulder functionality STG Duration 6 weeks Director Medical Writing Goal (LTG) pt will score lower than 20 on Quickdash to improve her pain , mobility and strength so she can return to skiiing. LTG Duration 12 weeks Assessment Summary Assessment Pt overall has less pain for shoulder and improved sleep quality, along with improved neuro symptoms. Pt has increased soreness at midback possibly d/t strengthening of scap retractors. Physical Therapy Plan Frequency and Duration Frequency of Treatment 2x/wk x 8 then 1x/wk Duration of Treatment 12 weeks Plan of Care Start Date 07/16/19 Plan of Care End Date 10/14/20 Next Visit Focus/Plan Next Note Type Treatment Note Next Visit Plan open book, OH roger, PROM, AROM cervical distraction door stretch neck stretch (lateral flexion) ulnar nerve glide
--- NOTE | 2020-08-01 16:32 | PT.OTN ---
Current Diagnoses Enthesopathy, unspecified (08/01/20) Physical Therapy Treatment Note PT-OP-A Visit Information Start: 07/16/20 08:10 Freq: Status: Active Protocol: Document 08/01/20 15:16 HH (Rec: 08/01/20 16:32 [id number]) Out-Patient Physical Therapy Visit Information Visit Information Visit Type Treatment Note Visit Start Time 15:16 Visit Stop Time 16:00 Total Visit Minutes 44 Visit Number 12/28 Number of WEATHERSTRIP MACHINE OPERATOR Visits 0 PT-OP-B Current Condition Start: 07/16/20 08:10 Freq: Status: Active Protocol: Document 07/16/20 15:42 HH (Rec: 07/16/20 16:15 [email or web address]) Current Condition History of Current Condition Onset Date a year ago Current Complaints Bilateral shoulder pain L>R, unable to reach overhead and her back History of Current Condition This is a 64 yo female here for worsening bilateral shoulder pain, L slightly worse than R. She stated she has been having shoulder pain for many years but it has been getting significantly worse since a year ago but she does not know why. Her pain is 3/10 normally. She can not lift her arms over 90 abduction and needs to external rotate her arm to reach overhead but with pain. She is unable to reach for her 2nd level of the shelf for cups and glasses. Her pain also keeps her awake at night who is unable to sleep on her side now. She also difficulty fernando/ doff her bra and shirts d/t limited mobility and pain. She does have shooting pain/ numbness down his elbow and pinky finger occasionally. Pt loves skiing and would like to return to this hobby once COVID pandemic is over. Prior Treatments and Tests X-ray R d 06/14/20 IMPRESSION: Right shoulder joint degeneration. If the patient's pain or other symptoms persist, consider further evaluation with MRI X-ray L [facility] 06/14/20 IMPRESSION: Moderate left shoulder joint degeneration. If the patient's pain or other symptoms persist, consider further evaluation with MRI Treatment Goals Patient/Caregiver Goals 1. to regain her shoulder mobility so she can reach overhead 2. to regain her shoulder strength so she can return to skiing PT-OP-C Subjective Start: 07/16/20 08:10 Freq: Status: Active Protocol: Document 08/01/20 15:16 (Rec: 08/01/20 16:32 [id number]) OP-PT Subjective Patient Comments Patient Comments My neck is little stiff today but im doing pretty good so far. using roger for my extension feels really good for my midback. Patient Reported Progress Improving PT-OP-E Functional Tests Start: 07/16/20 08:10 Freq: Status: Active Protocol: Document 07/16/20 15:42 (Rec: 07/16/20 16:15 [email or web address]) Functional Tests Apley's Scratch Test Action 1- Left pain at AC joint region Action 1- Right WFL, no pain Action 2- Left L upper trap d/t pain Action 2- Right T2 Action 3- Left L SIJ Action 3- Right R SIJ PT-OP-F Manual Assessment Start: 07/16/20 08:10 Freq: Status: Active Protocol: Document 07/16/20 15:42 (Rec: 07/16/20 16:15 [email or web address]) Manual Assessments Soft Tissue Assessment Soft Tissue Mobility Assessment tenderness noted with mod pressure at infraspinatus and teres minor bilaterally PT-OP-K Range of Motion Start: 07/16/20 08:10 Freq: Status: Active Protocol: Document 07/16/20 15:42 (Rec: 07/16/20 16:15 [email or web address]) Cervical Spine Range of Motion Cervical Spine Active Degrees Testing Position Sitting Lateral Flexion Left 16 Lateral Flexion Right 26 ROM Limitations Soft Tissue Tightness,Pain Comments radiating pain and numbness at 5th digit (R worse than L) Shoulder Goniometric Range of Motion Shoulder Right Active Shoulder ROM WFL No Testing Position Sitting Flexion 137 Extension 40 Abduction 105 External Rotation at 90 degrees 47 Abduction Internal Rotation 66 Left Active Shoulder ROM WFL No Testing Position Standing Flexion 140 Extension 36 Abduction 100 External Rotation at 90 degrees 74 Abduction Internal Rotation 76 Comments pain abd> flexion> IR/ER and extension Shoulder ROM Limitations Shoulder ROM Limitations Soft Tissue Tightness,Muscle Weakness,Pain PT-OP-L Special Tests Start: 07/16/20 08:10 Freq: Status: Active Protocol: Document 07/16/20 15:42 (Rec: 07/16/20 16:15 [email or web address]) Special Tests Cervical Spine Special Tests Spurling's Test Test Results +VE B Comments R> L, tingling sensation at 5th digit Shoulder Special Tests Drop Arm Rotator Cuff Test Results -ve Empty Can Test Results -ve Neer Impingement Test Results +VE L PT-OP-M Strength Start: 07/16/20 08:10 Freq: Status: Active Protocol: Document 07/16/20 15:42 (Rec: 07/16/20 16:15 [email or web address]) Shoulder Strength Shoulder Manual Muscle Testing Right Flexion 4- Good- Extension 3+ Fair+ Abduction (C5) 3+ Fair+ Adduction 4- Good- External Rotation 4- Good- Internal Rotation 4- Good- Left Flexion 4- Good- Extension 3+ Fair+ Abduction (C5) 3+ Fair+ External Rotation 3+ Fair+ Internal Rotation 3+ Fair+ PT-OP-Q Treatments Start: 07/16/20 08:10 Freq: Status: Active Protocol: Document 08/01/20 15:16 HH (Rec: 08/01/20 16:32 [id number]) Cardio Equipment Upper Body Ergometer (UBE) Duration (Minutes) 5 Other change direction at 1min interval Therapeutic Exercises Sidelying Exercises hor abd Side bilateral Reps/Minutes 8 x2 Comments no pain noted. shoulder abd Sidelying Exercise Name up to 90 degrees Side bilateral Reps/Minutes 8x2 Comments pain with L shoulder shoulder ER Side bilateral Reps/Minutes 10 x2 Comments cues on scap position open book Side bilateral Comments R side up to 140 degrees, L up to 130 degrees Sitting Exercises upper trap stretch Side bilateral Comments cervical lateral flexion, HEP OH roger Sitting Exercise Name extension, flexion, abduction and reaching behind back Side bilateral Equipment Used OH roger Reps/Minutes 4 mins Comments R reach full flexion Manual Therapy Treatment Soft Tissue Mobilization upper trap Mobilization Type Sustained Pressure,Trigger Point Release Intensity/Depth Moderate Body Position Supine RTC Body Location infraspinatus Mobilization Type Sustained Pressure,Trigger Point Release Intensity/Depth Moderate Body Position Sidelying Comments significant tightness but improved IR after including subscapularis pecs Body Location major and minor Mobilization Type Sustained Pressure,Trigger Point Release Intensity/Depth Moderate Body Position Supine Comments significant tightness but improved after PT-OP-T Assessment and Plan Start: 07/16/20 08:10 Freq: Status: Active Protocol: Document 08/01/20 15:16 (Rec: 08/01/20 16:32 [id number]) Physical Therapy Assessment Goals sleep Impairment pt currently is unable to sleep on her side d/t pain Type Soldering Machine Tender Goal (LTG) pt will be able to sleep either her L/R side with no complaints of discomfort. LTG Duration 12 weeks neuro-sign Impairment reports of tingling and numbness down her pinky fingers Type Soldering Machine Tender Goal (LTG) pt will not have tingling/ numbness down to her pinky fingers by improving her neural sensitivity. LTG Duration 12 weeks ROM Impairment pt lacks of ROM in all different anatomical planes Short Term Goal (STG) pt will gain > 10 degrees of ROM in all different planes to improve her mobility STG Duration 6 weeks Type Soldering Machine Tender Goal (LTG) pt will gain > 15 degrees of ROM in all different planes so she can reach the second level of the shelf for cups/ glassess LTG Duration 12 weeks Quickdash Impairment pt scores 31.81 on 1/5 Short Term Goal (STG) pt will score lower than 25 on quickdash to improver her overall shoulder functionality STG Duration 6 weeks Jail Goal (LTG) pt will score lower than 20 on Quickdash to improve her pain , mobility and strength so she can return to skiiing. LTG Duration 12 weeks Assessment Summary Assessment R shoulder cont to improve but L still has significant painful arc, abduction unable to pass 100 degrees. Added shoulder ER , abd and horizontal abd in SL position. Pt lucas session well. Physical Therapy Plan Frequency and Duration Frequency of Treatment 2x/wk x 8 then 1x/wk Duration of Treatment 12 weeks Plan of Care Start Date 07/16/19 Plan of Care End Date 10/14/20 Next Visit Focus/Plan Next Note Type Treatment Note Next Visit Plan open book, SAL duran, PROM, AROM cervical distraction door stretch neck stretch (lateral flexion) ulnar nerve glide
--- NOTE | 2020-08-05 16:15 | PT.OTN ---
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 She stated she has been having shoulder pain for many years but it has been getting significantly worse since a year ago but she does not know why. Her pain is 3/10 normally. She can not lift her arms over 90 abduction and needs to external rotate her arm to reach overhead but with pain. She is unable to reach for her 2nd level of the shelf for cups and glasses. Her pain also keeps her awake at night who is unable to sleep on her side now. She also difficulty fernando/ doff her bra and shirts d/t limited mobility and pain. She does have shooting pain/ numbness down his elbow and pinky finger occasionally. Pt loves skiing and would like to return to this hobby once COVID pandemic is over. Prior Treatments and Tests X-ray R d 06/14/20 IMPRESSION: Right shoulder joint degeneration. If the patient's pain or other symptoms persist, consider further evaluation with MRI X-ray L [facility] 06/14/20 IMPRESSION: Moderate left shoulder joint degeneration. If the patient's pain or other symptoms persist, consider further evaluation with MRI Treatment Goals Patient/Caregiver Goals 1. to regain her shoulder mobility so she can reach overhead 2. to regain her shoulder strength so she can return to skiing PT-OP-C Subjective Start: 07/16/20 08:10 Freq: Status: Active Protocol: Document 08/05/20 15:14 (Rec: 08/05/20 16:14 [id number]) OP-PT Subjective Patient Comments Patient Comments I did get more sore from last visit d/t new exercses and i tried them over the weekend. I slept better for 3 days out of the past 7 days. My numbness and tingling are barely happening right. Patient Reported Progress Improving PT-OP-E Functional Tests Start: 07/16/20 08:10 Freq: Status: Active Protocol: Document 07/16/20 15:42 (Rec: 07/16/20 16:15 [email or web address]) Functional Tests Apley's Scratch Test Action 1- Left pain at AC joint region Action 1- Right WFL, no pain Action 2- Left L upper trap d/t pain Action 2- Right T2 Action 3- Left L SIJ Action 3- Right R SIJ PT-OP-F Manual Assessment Start: 07/16/20 08:10 Freq: Status: Active Protocol: Document 07/16/20 15:42 (Rec: 07/16/20 16:15 [email or web address]) Manual Assessments Soft Tissue Assessment Soft Tissue Mobility Assessment tenderness noted with mod pressure at infraspinatus and teres minor bilaterally PT-OP-K Range of Motion Start: 07/16/20 08:10 Freq: Status: Active Protocol: Document 07/16/20 15:42 (Rec: 07/16/20 16:15 [email or web address]) Cervical Spine Range of Motion Cervical Spine Active Degrees Testing Position Sitting Lateral Flexion Left 16 Lateral Flexion Right 26 ROM Limitations Soft Tissue Tightness,Pain Comments radiating pain and numbness at 5th digit (R worse than L) Shoulder Goniometric Range of Motion Shoulder Right Active Shoulder ROM WFL No Testing Position Sitting Flexion 137 Extension 40 Abduction 105 External Rotation at 90 degrees 47 Abduction Internal Rotation 66 Left Active Shoulder ROM WFL No Testing Position Standing Flexion 140 Extension 36 Abduction 100 External Rotation at 90 degrees 74 Abduction Internal Rotation 76 Comments pain abd> flexion> IR/ER and extension Shoulder ROM Limitations Shoulder ROM Limitations Soft Tissue Tightness,Muscle Weakness,Pain PT-OP-L Special Tests Start: 07/16/20 08:10 Freq: Status: Active Protocol: Document 07/16/20 15:42 (Rec: 07/16/20 16:15 [email or web address]) Special Tests Cervical Spine Special Tests Spurling's Test Test Results +VE B Comments R> L, tingling sensation at 5th digit Shoulder Special Tests Drop Arm Rotator Cuff Test Results -ve Empty Can Test Results -ve Neer Impingement Test Results +VE L PT-OP-M Strength Start: 07/16/20 08:10 Freq: Status: Active Protocol: Document 07/16/20 15:42 (Rec: 07/16/20 16:15 [email or web address]) Shoulder Strength Shoulder Manual Muscle Testing Right Flexion 4- Good- Extension 3+ Fair+ Abduction (C5) 3+ Fair+ Adduction 4- Good- External Rotation 4- Good- Internal Rotation 4- Good- Left Flexion 4- Good- Extension 3+ Fair+ Abduction (C5) 3+ Fair+ External Rotation 3+ Fair+ Internal Rotation 3+ Fair+ PT-OP-Q Treatments Start: 07/16/20 08:10 Freq: Status: Active Protocol: Document 08/05/20 15:14 (Rec: 08/05/20 16:14 [id number]) Cardio Equipment Upper Body Ergometer (UBE) Duration (Minutes) 5 Other change direction at 1min interval Therapeutic Exercises Sidelying Exercises sleeper stretch Comments very painful switch to seated post hor abd Side bilateral Reps/Minutes 8x1 Comments no pain noted. shoulder abd Sidelying Exercise Name up to 90 degrees Side bilateral Reps/Minutes 8x1 Comments pain with L shoulder shoulder ER Side bilateral Reps/Minutes 10 x2 Comments cues on scap position open book Side bilateral Comments R side up to 140 degrees, L up to 130 degrees Sitting Exercises posterior capsule Side bilateral Comments cues on isolating GHJ but not scapula OH roger Sitting Exercise Name extension, flexion, abduction and reaching behind back Side bilateral Equipment Used [place] roger Reps/Minutes 4 mins Comments R reach full flexion Standing Exercises standing extension Side bilateral Equipment Used PVC Reps/Minutes 10 x2 Manual Therapy Treatment Soft Tissue Mobilization upper trap Mobilization Type Sustained Pressure,Trigger Point Release Intensity/Depth Moderate Body Position Supine RTC Body Location infraspinatus Mobilization Type Sustained Pressure,Trigger Point Release Intensity/Depth Moderate Body Position Sidelying Comments significant tightness but improved IR after including subscapularis Joint Mobilizations upward rotation Direction upward rotation Grade III Body Position Sitting Reps/Duration 5 reps x 2 Comments assisted scapular upward rotation with shoulder abduction PT-OP-T Assessment and Plan Start: 07/16/20 08:10 Freq: Status: Active Protocol: Document 08/05/20 15:14 (Rec: 08/05/20 16:14 [id number]) Physical Therapy Assessment Goals sleep Impairment pt currently is unable to sleep on her side d/t pain Long-Term Goal (LTG) pt will be able to sleep either her L/R side with no complaints of discomfort. LTG Duration 12 weeks neuro-sign Impairment reports of tingling and numbness down her pinky fingers [employer] Goal (LTG) pt will not have tingling/ numbness down to her pinky fingers by improving her neural sensitivity. LTG Duration 12 weeks ROM Impairment pt lacks of ROM in all different anatomical planes Short Term Goal (STG) pt will gain > 10 degrees of ROM in all different planes to improve her mobility STG Duration 6 weeks [employer] Goal (LTG) pt will gain > 15 degrees of ROM in all different planes so she can reach the second level of the shelf for cups/ glassess LTG Duration 12 weeks Quickdash Impairment pt scores 31.81 on 1/5 Short Term Goal (STG) pt will score lower than 25 on quickdash to improver her overall shoulder functionality STG Duration 6 weeks Long-Term Goal (LTG) pt will score lower than 20 on Quickdash to improve her pain , mobility and strength so she can return to skiiing. LTG Duration 12 weeks Assessment Summary Assessment Pt has significant improvements with ER today after practicing shoulder ER over the weekend. Added posterior capsule stretch for HEP. Her abduction has less pain with assisted scapular upward rotation. Physical Therapy Plan Frequency and Duration Frequency of Treatment 2x/wk x 8 then 1x/wk Duration of Treatment 12 weeks Plan of Care Start Date 07/16/19 Plan of Care End Date 10/14/20 Next Visit Focus/Plan Next Note Type Treatment Note Next Visit Plan open book, OH roger, PROM, AROM cervical distraction door stretch neck stretch (lateral flexion) ulnar nerve glide
--- NOTE | 2020-08-19 16:18 | PT.OTN ---
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 She stated she has been having shoulder pain for many years but it has been getting significantly worse since a year ago but she does not know why. Her pain is 3/10 normally. She can not lift her arms over 90 abduction and needs to external rotate her arm to reach overhead but with pain. She is unable to reach for her 2nd level of the shelf for cups and glasses. Her pain also keeps her awake at night who is unable to sleep on her side now. She also difficulty fernando/ doff her bra and shirts d/t limited mobility and pain. She does have shooting pain/ numbness down his elbow and pinky finger occasionally. Pt loves skiing and would like to return to this hobby once COVID pandemic is over. Prior Treatments and Tests X-ray R d 06/14/20 IMPRESSION: Right shoulder joint degeneration. If the patient's pain or other symptoms persist, consider further evaluation with MRI X-ray [facility] 06/14/20 IMPRESSION: Moderate left shoulder joint degeneration. If the patient's pain or other symptoms persist, consider further evaluation with MRI Treatment Goals Patient/Caregiver Goals 1. to regain her shoulder mobility so she can reach overhead 2. to regain her shoulder strength so she can return to skiing PT-OP-C Subjective Start: 07/16/20 08:10 Freq: Status: Active Protocol: Document 08/19/20 15:15 (Rec: 08/19/20 16:18 [id number]) OP-PT Subjective Patient Comments Patient Comments My L side couldnt get better as fast as the R side. My R side is getting a lot better. My tingling and numbness is pretty much all gone and im able to sleep better. Patient Reported Progress Improving PT-OP-E Functional Tests Start: 07/16/20 08:10 Freq: Status: Active Protocol: Document 07/16/20 15:42 (Rec: 07/16/20 16:15 [email or web address]) Functional Tests Apley's Scratch Test Action 1- Left pain at AC joint region Action 1- Right WFL, no pain Action 2- Left L upper trap d/t pain Action 2- Right T2 Action 3- Left L SIJ Action 3- Right R SIJ PT-OP-F Manual Assessment Start: 07/16/20 08:10 Freq: Status: Active Protocol: Document 07/16/20 15:42 (Rec: 07/16/20 16:15 [email or web address]) Manual Assessments Soft Tissue Assessment Soft Tissue Mobility Assessment tenderness noted with mod pressure at infraspinatus and teres minor bilaterally PT-OP-K Range of Motion Start: 07/16/20 08:10 Freq: Status: Active Protocol: Document 07/16/20 15:42 (Rec: 07/16/20 16:15 [email or web address]) Cervical Spine Range of Motion Cervical Spine Active Degrees Testing Position Sitting Lateral Flexion Left 16 Lateral Flexion Right 26 ROM Limitations Soft Tissue Tightness,Pain Comments radiating pain and numbness at 5th digit (R worse than L) Shoulder Goniometric Range of Motion Shoulder Right Active Shoulder ROM WFL No Testing Position Sitting Flexion 137 Extension 40 Abduction 105 External Rotation at 90 degrees 47 Abduction Internal Rotation 66 Left Active Shoulder ROM WFL No Testing Position Standing Flexion 140 Extension 36 Abduction 100 External Rotation at 90 degrees 74 Abduction Internal Rotation 76 Comments pain abd> flexion> IR/ER and extension Shoulder ROM Limitations Shoulder ROM Limitations Soft Tissue Tightness,Muscle Weakness,Pain PT-OP-L Special Tests Start: 07/16/20 08:10 Freq: Status: Active Protocol: Document 07/16/20 15:42 (Rec: 07/16/20 16:15 [email or web address]) Special Tests Cervical Spine Special Tests Spurling's Test Test Results +VE B Comments R> L, tingling sensation at 5th digit Shoulder Special Tests Drop Arm Rotator Cuff Test Results -ve Empty Can Test Results -ve Neer Impingement Test Results +VE L PT-OP-M Strength Start: 07/16/20 08:10 Freq: Status: Active Protocol: Document 07/16/20 15:42 HH (Rec: 07/16/20 16:15 HH [email or web address]) Shoulder Strength Shoulder Manual Muscle Testing Right Flexion 4- Good- Extension 3+ Fair+ Abduction (C5) 3+ Fair+ Adduction 4- Good- External Rotation 4- Good- Internal Rotation 4- Good- Left Flexion 4- Good- Extension 3+ Fair+ Abduction (C5) 3+ Fair+ External Rotation 3+ Fair+ Internal Rotation 3+ Fair+ PT-OP-Q Treatments Start: 07/16/20 08:10 Freq: Status: Active Protocol: Document 08/19/20 15:15 HH (Rec: 08/19/20 16:18 HH [id number]) Therapeutic Exercises Sidelying Exercises hor abd Side bilateral Reps/Minutes 8x1 Comments no pain noted. shoulder abd Sidelying Exercise Name up to 90 degrees Side bilateral Equipment Used 2lbs DB Reps/Minutes 8x1 Comments pain with L shoulder shoulder ER Side bilateral Equipment Used 2lbs DB Reps/Minutes 10 x2 Comments cues on scap position open book Side bilateral Comments R side up to 140 degrees, L up to 130 degrees Sitting Exercises posterior capsule Side bilateral Comments cues on isolating GHJ but not scapula OH roger Sitting Exercise Name extension, flexion, abduction and reaching behind back Side bilateral Equipment Used [place] roger Reps/Minutes 4 mins Comments R reach full flexion Standing Exercises wall slide Standing Exercise Name shoulder abd Equipment Used with towel Reps/Minutes 8 x2 extension with IR Standing Exercise Name flossing Side bilateral Equipment Used PVC Reps/Minutes 10 x 2 standing extension Side bilateral Equipment Used PVC Reps/Minutes 10 x2 Manual Therapy Treatment Soft Tissue Mobilization triceps Mobilization Type Sustained Pressure,Trigger Point Release Intensity/Depth Moderate Body Position Supine Comments significant tenderness at medial tricep belly RTC Body Location infraspinatus Mobilization Type Sustained Pressure,Trigger Point Release Intensity/Depth Moderate Body Position Sidelying Comments min tightness s pecs Body Location major and minor Mobilization Type Sustained Pressure,Trigger Point Release Intensity/Depth Moderate Body Position Supine Comments min tightness PT-OP-T Assessment and Plan Start: 07/16/20 08:10 Freq: Status: Active Protocol: Document 08/19/20 15:15 HH (Rec: 08/19/20 16:18 HH [id number]) Physical Therapy Assessment Goals sleep Impairment pt currently is unable to sleep on her side d/t pain [employer] Goal (LTG) pt will be able to sleep either her L/R side with no complaints of discomfort. LTG Duration 12 weeks neuro-sign Impairment reports of tingling and numbness down her pinky fingers [facility] Goal (LTG) pt will not have tingling/ numbness down to her pinky fingers by improving her neural sensitivity. LTG Duration 12 weeks ROM Impairment pt lacks of ROM in all different anatomical planes Short Term Goal (STG) pt will gain > 10 degrees of ROM in all different planes to improve her mobility STG Duration 6 weeks [facility] Goal (LTG) pt will gain > 15 degrees of ROM in all different planes so she can reach the second level of the shelf for cups/ glassess LTG Duration 12 weeks Quickdash Impairment pt scores 31.81 on 1/5 Short Term Goal (STG) pt will score lower than 25 on quickdash to improver her overall shoulder functionality STG Duration 6 weeks [facility] Goal (LTG) pt will score lower than 20 on Quickdash to improve her pain , mobility and strength so she can return to skiiing. LTG Duration 12 weeks Assessment Summary Assessment Pt' R shoulder= WFL, but L side still has difficulty for abd and reaching behind her back, Noticed pt has tednerness at medial tricep belly and ulnar nerve sensitivity. She lucas today with added weight 2lb DB for shoulder strengthening ex. Physical Therapy Plan Frequency and Duration Frequency of Treatment 2x/wk x 8 then 1x/wk Duration of Treatment 12 weeks Plan of Care Start Date 07/16/19 Plan of Care End Date 10/14/20 Next Visit Focus/Plan Next Note Type Treatment Note Next Visit Plan open book, SAL duran, PROM, AROM cervical distraction door stretch neck stretch (lateral flexion) ulnar nerve glide
--- NOTE | 2020-08-22 16:29 | PT.OTN ---
Current Diagnoses Enthesopathy, unspecified (08/22/20) Physical Therapy Treatment Note PT-OP-A Visit Information Start: 07/16/20 08:10 Freq: Status: Active Protocol: Document 08/22/20 15:15 [facility] (Rec: 08/22/20 16:29 [facility] [id number]) Out-Patient Physical Therapy Visit Information Visit Information Visit Type Progress Note Visit Note 07/21 Visit Start Time 15:15 Visit Stop Time 16:05 Total Visit Minutes 50 Visit Number 03/30 Number of HEALTH CARE LAW SPECIALIST Visits 0 PT-OP-B Current Condition Start: 07/16/20 08:10 Freq: Status: Active Protocol: Document 07/16/20 15:42 HH (Rec: 07/16/20 16:15 HH [email or web address]) Current Condition History of Current Condition Onset Date a year ago Current Complaints Bilateral shoulder pain L>R, unable to reach overhead and her back History of Current Condition This is a 64 yo female here for worsening bilateral shoulder pain, L slightly worse than R. She stated she has been having shoulder pain for many years but it has been getting significantly worse since a year ago but she does not know why. Her pain is 3/10 normally. She can not lift her arms over 90 abduction and needs to external rotate her arm to reach overhead but with pain. She is unable to reach for her 2nd level of the shelf for cups and glasses. Her pain also keeps her awake at night who is unable to sleep on her side now. She also difficulty fernando/ doff her bra and shirts d/t limited mobility and pain. She does have shooting pain/ numbness down his elbow and pinky finger occasionally. Pt loves skiing and would like to return to this hobby once COVID pandemic is over. Prior Treatments and Tests X-ray R d 06/14/20 IMPRESSION: Right shoulder joint degeneration. If the patient's pain or other symptoms persist, consider further evaluation with MRI X-ray L d 06/14/20 IMPRESSION: Moderate left shoulder joint degeneration. If the patient's pain or other symptoms persist, consider further evaluation with MRI Treatment Goals Patient/Caregiver Goals 1. to regain her shoulder mobility so she can reach overhead 2. to regain her shoulder strength so she can return to skiing PT-OP-C Subjective Start: 07/16/20 08:10 Freq: Status: Active Protocol: Document 08/22/20 15:15 [facility] (Rec: 08/22/20 16:29 [facility] [id number]) OP-PT Subjective Patient Comments Patient Comments After 2 new exercises, L shoulder got aggrevated. Slide up the wall into abd irritates tingling. Wrist ext and cervical R SB inc tingling still. No tingling on R. ROM is getting better on R and reaching behind is getting better but still limited d/t pain and tightness. Patient Questionnaires Quick Dash- Upper Extremity Quick Dash UE Score 25 PT-OP-E Functional Tests Start: 07/16/20 08:10 Freq: Status: Active Protocol: Document 07/16/20 15:42 (Rec: 07/16/20 16:15 [email or web address]) Functional Tests Apley's Scratch Test Action 1- Left pain at AC joint region Action 1- Right WFL, no pain Action 2- Left L upper trap d/t pain Action 2- Right T2 Action 3- Left L SIJ Action 3- Right R SIJ PT-OP-F Manual Assessment Start: 07/16/20 08:10 Freq: Status: Active Protocol: Document 07/16/20 15:42 (Rec: 07/16/20 16:15 [email or web address]) Manual Assessments Soft Tissue Assessment Soft Tissue Mobility Assessment tenderness noted with mod pressure at infraspinatus and teres minor bilaterally PT-OP-K Range of Motion Start: 07/16/20 08:10 Freq: Status: Active Protocol: Document 08/22/20 15:15 [facility] (Rec: 08/22/20 16:29 [facility] [id number]) Shoulder Goniometric Range of Motion Shoulder Right Active Shoulder ROM WFL No Testing Position Sitting Flexion 137 Extension 50 Abduction 121 External Rotation at 90 degrees 74 Abduction Internal Rotation 40 Left Active Shoulder ROM WFL No Testing Position Standing Flexion 140 Extension 55 Abduction 110 External Rotation at 90 degrees 64 Abduction Internal Rotation 36 Comments IR measured at 90 deg abd PT-OP-L Special Tests Start: 07/16/20 08:10 Freq: Status: Active Protocol: Document 07/16/20 15:42 (Rec: 07/16/20 16:15 [email or web address]) Special Tests Cervical Spine Special Tests Spurling's Test Test Results +VE B Comments R> L, tingling sensation at 5th digit Shoulder Special Tests Drop Arm Rotator Cuff Test Results -ve Empty Can Test Results -ve Neer Impingement Test Results +VE L PT-OP-M Strength Start: 07/16/20 08:10 Freq: Status: Active Protocol: Document 07/16/20 15:42 (Rec: 07/16/20 16:15 [email or web address]) Shoulder Strength Shoulder Manual Muscle Testing Right Flexion 4- Good- Extension 3+ Fair+ Abduction (C5) 3+ Fair+ Adduction 4- Good- External Rotation 4- Good- Internal Rotation 4- Good- Left Flexion 4- Good- Extension 3+ Fair+ Abduction (C5) 3+ Fair+ External Rotation 3+ Fair+ Internal Rotation 3+ Fair+ PT-OP-Q Treatments Start: 07/16/20 08:10 Freq: Status: Active Protocol: Document 08/22/20 15:15 [facility] (Rec: 08/22/20 16:29 [facility] [id number]) Manual Therapy Treatment Soft Tissue Mobilization post Body Location lats, teres minor/major, rhomboids L Mobilization Type Rolling,Strumming Intensity/Depth Moderate Comments w/shoulder flex triceps Body Location B Mobilization Type Sustained Pressure,Trigger Point Release Intensity/Depth Moderate Body Position Supine Comments w/elbow flex/ext in 90 deg flex positoin Joint Mobilizations GH Joint B distraciton , L post & inf glides Grade II Self-Care/Home Management Treatment Education Other Education edu o f anatomy of shoulder girdle and nerves (used model & anatomy book) PT-OP-T Assessment and Plan Start: 07/16/20 08:10 Freq: Status: Active Protocol: Document 08/22/20 15:15 [facility] (Rec: 08/22/20 16:29 [facility] [id number]) Physical Therapy Assessment Goals sleep Impairment pt currently is unable to sleep on her side d/t pain Care Home Goal (LTG) pt will be able to sleep either her L/R side with no complaints of discomfort. 08/22-can sleep on R but L side will wake her up after a while-much improved LTG Duration 12 weeks neuro-sign Impairment reports of tingling and numbness down her pinky fingers Battery Vent Plug Inserter Goal (LTG) pt will not have tingling/ numbness down to her pinky fingers by improving her neural sensitivity. 08/22-signfiicantly improved - onlhy occ w/certain movements LTG Duration 12 weeks ROM Impairment pt lacks of ROM in all different anatomical planes Short Term Goal (STG) pt will gain > 10 degrees of ROM in all different planes to improve her mobility 08/22-achieved for all motions except IR & flex STG Duration 6 weeks Battery Vent Plug Inserter Goal (LTG) pt will gain > 15 degrees of ROM in all different planes so she can reach the second level of the shelf for cups/ glassess LTG Duration 12 weeks Quickdash Impairment pt scores 31.81 on 1/5 Short Term Goal (STG) pt will score lower than 25 on quickdash to improver her overall shoulder functionality STG Duration goal met to 25 Battery Vent Plug Inserter Goal (LTG) pt will score lower than 20 on Quickdash to improve her pain , mobility and strength so she can return to skiiing. LTG Duration 12 weeks Assessment Summary Assessment Pt is making good progress with dec symptoms and improved ROM especially with RUE >L. She is compliant with HEP and is making effort to avoid scap elevation when using UEs. She is still limited with ROM especailly IR and overhead motions L>R. With manual treatment today, she was able to inc ROM passively and actively. With exercises, she was given cueing for s/l abd & wall slide abd to avoid scap elevation and was able to improve performance. Physical Therapy Plan Frequency and Duration Frequency of Treatment 2x/wk x 8 then 1x/wk Duration of Treatment 12 weeks Plan of Care Start Date 07/16/19 Plan of Care End Date 10/14/20 Next Visit Focus/Plan Next Note Type Treatment Note Next Visit Plan cont to work on scapular stability & overhead mobility, pt may benefit from AC & GH joint mobs and 1st rib mob on L side
--- NOTE | 2020-08-26 11:25 | PT.OTN ---
Current Diagnoses Enthesopathy, unspecified (08/26/20) Physical Therapy Treatment Note PT-OP-A Visit Information Start: 07/16/20 08:10 Freq: Status: Active Protocol: Document 08/26/20 10:36 SP (Rec: 08/26/20 11:44 SP [id number]) Out-Patient Physical Therapy Visit Information Visit Information Visit Type Treatment Note Visit Note 08/21 Visit Start Time 10:36 Visit Stop Time 11:25 Total Visit Minutes 49 Visit Number 04/29 Number of PEDIATRIC AUDIOLOGIST Visits 1 PT-OP-B Current Condition Start: 07/16/20 08:10 Freq: Status: Active Protocol: Document 07/16/20 15:42 HH (Rec: 07/16/20 16:15 HH [email or web address]) Current Condition History of Current Condition Onset Date a year ago Current Complaints Bilateral shoulder pain L>R, unable to reach overhead and her back History of Current Condition This is a 64 yo female here for worsening bilateral shoulder pain, L slightly worse than R. She stated she has been having shoulder pain for many years but it has been getting significantly worse since a year ago but she does not know why. Her pain is 3/10 normally. She can not lift her arms over 90 abduction and needs to external rotate her arm to reach overhead but with pain. She is unable to reach for her 2nd level of the shelf for cups and glasses. Her pain also keeps her awake at night who is unable to sleep on her side now. She also difficulty fernando/ doff her bra and shirts d/t limited mobility and pain. She does have shooting pain/ numbness down his elbow and pinky finger occasionally. Pt loves skiing and would like to return to this hobby once COVID pandemic is over. Prior Treatments and Tests X-ray R d 06/14/20 IMPRESSION: Right shoulder joint degeneration. If the patient's pain or other symptoms persist, consider further evaluation with MRI X-ray L d 06/14/20 IMPRESSION: Moderate left shoulder joint degeneration. If the patient's pain or other symptoms persist, consider further evaluation with MRI Treatment Goals Patient/Caregiver Goals 1. to regain her shoulder mobility so she can reach overhead 2. to regain her shoulder strength so she can return to skiing PT-OP-C Subjective Start: 07/16/20 08:10 Freq: Status: Active Protocol: Document 08/26/20 10:36 SP (Rec: 08/26/20 11:44 SP [id number]) OP-PT Subjective Patient Comments Patient Comments Pt reported R UE almost full ROM and improving on L but not as good. I am not taking Tylenol and woke up with L shld feeling squawky. I am able to reach behind by back R better than L but both improving. Patient Reported Progress Improving PT-OP-E Functional Tests Start: 07/16/20 08:10 Freq: Status: Active Protocol: Document 07/16/20 15:42 HH (Rec: 07/16/20 16:15 HH [email or web address]) Functional Tests Apley's Scratch Test Action 1- Left pain at AC joint region Action 1- Right WFL, no pain Action 2- Left L upper trap d/t pain Action 2- Right T2 Action 3- Left L SIJ Action 3- Right R SIJ PT-OP-F Manual Assessment Start: 07/16/20 08:10 Freq: Status: Active Protocol: Document 07/16/20 15:42 HH (Rec: 07/16/20 16:15 HH [email or web address]) Manual Assessments Soft Tissue Assessment Soft Tissue Mobility Assessment tenderness noted with mod pressure at infraspinatus and teres minor bilaterally PT-OP-K Range of Motion Start: 07/16/20 08:10 Freq: Status: Active Protocol: Document 08/22/20 15:15 LR (Rec: 08/22/20 16:29 [facility] [id number]) Shoulder Goniometric Range of Motion Shoulder Right Active Shoulder ROM WFL No Testing Position Sitting Flexion 137 Extension 50 Abduction 121 External Rotation at 90 degrees 74 Abduction Internal Rotation 40 Left Active Shoulder ROM WFL No Testing Position Standing Flexion 140 Extension 55 Abduction 110 External Rotation at 90 degrees 64 Abduction Internal Rotation 36 Comments IR measured at 90 deg abd PT-OP-L Special Tests Start: 07/16/20 08:10 Freq: Status: Active Protocol: Document 07/16/20 15:42 HH (Rec: 07/16/20 16:15 HH [email or web address]) Special Tests Cervical Spine Special Tests Spurling's Test Test Results +VE B Comments R> L, tingling sensation at 5th digit Shoulder Special Tests Drop Arm Rotator Cuff Test Results -ve Empty Can Test Results -ve Neer Impingement Test Results +VE L PT-OP-M Strength Start: 07/16/20 08:10 Freq: Status: Active Protocol: Document 07/16/20 15:42 HH (Rec: 07/16/20 16:15 HH [email or web address]) Shoulder Strength Shoulder Manual Muscle Testing Right Flexion 4- Good- Extension 3+ Fair+ Abduction (C5) 3+ Fair+ Adduction 4- Good- External Rotation 4- Good- Internal Rotation 4- Good- Left Flexion 4- Good- Extension 3+ Fair+ Abduction (C5) 3+ Fair+ External Rotation 3+ Fair+ Internal Rotation 3+ Fair+ PT-OP-Q Treatments Start: 07/16/20 08:10 Freq: Status: Active Protocol: Document 08/26/20 10:36 SP (Rec: 08/26/20 11:44 SP [id number]) Cardio Equipment Upper Body Ergometer (UBE) Duration (Minutes) 6 RPM 65 Therapeutic Exercises Supine Exercises flexion & scaption Side left Reps/Minutes x5 each Comments cued verbal and tactile GH inf glide w/IR palm face midline Sidelying Exercises shoulder abd Sidelying Exercise Name up to 120 deg Side bilateral Equipment Used 1lbs DB Reps/Minutes x8 Comments cued scap retract/ depress/ inf humeral head better range L shoulder ER Sidelying Exercise Name towel roll under UE Side bilateral Equipment Used 2lbs DB Reps/Minutes 10 x2 Comments cues on scap position open book Sidelying Exercise Name Pt stated better, no range taken Side bilateral Comments cued scap depression awareness , scap glide, TS rotation- neck help Manual Therapy Treatment Soft Tissue Mobilization post Body Location lats, teres minor/major, rhomboids L Mobilization Type Rolling,Strumming Intensity/Depth Moderate Body Position Sidelying Comments w/shoulder flex triceps Body Location B Mobilization Type Sustained Pressure,Trigger Point Release Intensity/Depth Moderate Body Position Supine Comments w/elbow flex/ext in 90 deg flex positoin RTC Body Location infraspinatus, subscap, teres , supraspinatus Mobilization Type Strumming,Sustained Pressure Intensity/Depth Moderate Body Position Sidelying Comments min tightness s pecs Body Location major and minor Mobilization Type Sustained Pressure,Trigger Point Release Intensity/Depth Moderate Body Position Supine Comments L min tightness education on self MWM Joint Mobilizations scapular PNF Joint scapulothoracic Direction retraction/ depression Grade II Body Position Sidelying Comments cued stacked on side w/ education on positioning for ABD, HABD with decrease shld elevation compensations GH Joint B distraciton , L post & inf glides PT-OP-T Assessment and Plan Start: 07/16/20 08:10 Freq: Status: Active Protocol: Document 08/26/20 10:36 SP (Rec: 08/26/20 11:44 SP [id number]) Physical Therapy Assessment Goals sleep Impairment pt currently is unable to sleep on her side d/t pain Family Practice Physician Goal (LTG) pt will be able to sleep either her L/R side with no complaints of discomfort. 08/22-can sleep on R but L side will wake her up after a while-much improved LTG Duration 12 weeks neuro-sign Impairment reports of tingling and numbness down her pinky fingers Prison Goal (LTG) pt will not have tingling/ numbness down to her pinky fingers by improving her neural sensitivity. 08/22-signfiicantly improved - onlhy occ w/certain movements LTG Duration 12 weeks ROM Impairment pt lacks of ROM in all different anatomical planes Short Term Goal (STG) pt will gain > 10 degrees of ROM in all different planes to improve her mobility 08/22-achieved for all motions except IR & flex STG Duration 6 weeks Family Practice Physician Goal (LTG) pt will gain > 15 degrees of ROM in all different planes so she can reach the second level of the shelf for cups/ glassess LTG Duration 12 weeks Quickdash Impairment pt scores 31.81 on 1/5 Short Term Goal (STG) pt will score lower than 25 on quickdash to improver her overall shoulder functionality STG Duration goal met to 25 Prison Goal (LTG) pt will score lower than 20 on Quickdash to improve her pain , mobility and strength so she can return to skiiing. LTG Duration 12 weeks Assessment Summary Assessment Pt improved in abd ROM sidelying LUE post manual STMs , PNF and GH inf glide facilitation with cuing for scap/trunk alignment AROM> 1# DB. Instruction on self STMs MWM over pec minor end of tx to decrease tightness prox subclavicle. Pt responded well to tx. I always feel looser when leave PT. Physical Therapy Plan Frequency and Duration Frequency of Treatment 2x/wk x 8 then 1x/wk Duration of Treatment 12 weeks Plan of Care Start Date 07/16/19 Plan of Care End Date 10/14/20 Therapeutic Interventions Therapeutic Interventions Home Exercise Program,Joint Mobilizations,Manual Therapy, Neuromuscular Re-education, Patient/Caregiver Education, Self-Care/Home Management,Soft Tissue Mobilization,Taping, Therapeutic Activities, Therapeutic Exercises Modalities Cold Pack/Ice Massage,Electric Stimulation,Hot Packs, Infrared Therapy,Traction- Mechanical,Ultrasound Next Visit Focus/Plan Next Note Type Treatment Note Next Visit Plan Assess last tx: manual, PNF, HEP review with proper scap stab. Next tx assess currrent ROM for progress making. Cont per PT POC: to work on scapular stability & overhead mobility, pt may benefit from AC & GH joint mobs and 1st rib mob on L side
--- NOTE | 2020-08-29 15:29 | PT.OTN ---
Current Diagnoses Enthesopathy, unspecified (08/29/20) Physical Therapy Treatment Note PT-OP-A Visit Information Start: 07/16/20 08:10 Freq: Status: Active Protocol: Document 08/29/20 14:38 SP (Rec: 08/29/20 15:44 SP [id number]) Out-Patient Physical Therapy Visit Information Visit Information Visit Type Treatment Note Visit Note 3/10 OVEN EQUIPMENT REPAIRER late bringing pt back,saw full tx time. Visit Start Time 14:38 Visit Stop Time 15:29 Total Visit Minutes 51 Visit Number 05/30 Number of OVEN EQUIPMENT REPAIRER Visits 2 PT-OP-B Current Condition Start: 07/16/20 08:10 Freq: Status: Active Protocol: Document 07/16/20 15:42 HH (Rec: 07/16/20 16:15 HH [email or web address]) Current Condition History of Current Condition Onset Date a year ago Current Complaints Bilateral shoulder pain L>R, unable to reach overhead and her back History of Current Condition This is a 64 yo female here for worsening bilateral shoulder pain, L slightly worse than R. She stated she has been having shoulder pain for many years but it has been getting significantly worse since a year ago but she does not know why. Her pain is 3/10 normally. She can not lift her arms over 90 abduction and needs to external rotate her arm to reach overhead but with pain. She is unable to reach for her 2nd level of the shelf for cups and glasses. Her pain also keeps her awake at night who is unable to sleep on her side now. She also difficulty fernando/ doff her bra and shirts d/t limited mobility and pain. She does have shooting pain/ numbness down his elbow and pinky finger occasionally. Pt loves skiing and would like to return to this hobby once COVID pandemic is over. Prior Treatments and Tests X-ray R d 06/14/20 IMPRESSION: Right shoulder joint degeneration. If the patient's pain or other symptoms persist, consider further evaluation with MRI X-ray L d 06/14/20 IMPRESSION: Moderate left shoulder joint degeneration. If the patient's pain or other symptoms persist, consider further evaluation with MRI Treatment Goals Patient/Caregiver Goals 1. to regain her shoulder mobility so she can reach overhead 2. to regain her shoulder strength so she can return to skiing PT-OP-C Subjective Start: 07/16/20 08:10 Freq: Status: Active Protocol: Document 08/29/20 14:38 SP (Rec: 08/29/20 15:44 SP [id number]) OP-PT Subjective Patient Comments Patient Comments Pt reported still sore anterior L proximal humerus but not bad. PT-OP-E Functional Tests Start: 07/16/20 08:10 Freq: Status: Active Protocol: Document 07/16/20 15:42 HH (Rec: 07/16/20 16:15 HH [email or web address]) Functional Tests Apley's Scratch Test Action 1- Left pain at AC joint region Action 1- Right WFL, no pain Action 2- Left L upper trap d/t pain Action 2- Right T2 Action 3- Left L SIJ Action 3- Right R SIJ PT-OP-F Manual Assessment Start: 07/16/20 08:10 Freq: Status: Active Protocol: Document 07/16/20 15:42 HH (Rec: 07/16/20 16:15 HH [email or web address]) Manual Assessments Soft Tissue Assessment Soft Tissue Mobility Assessment tenderness noted with mod pressure at infraspinatus and teres minor bilaterally PT-OP-K Range of Motion Start: 07/16/20 08:10 Freq: Status: Active Protocol: Document 08/22/20 15:15 LR (Rec: 08/22/20 16:29 [facility] [id number]) Shoulder Goniometric Range of Motion Shoulder Right Active Shoulder ROM WFL No Testing Position Sitting Flexion 137 Extension 50 Abduction 121 External Rotation at 90 degrees 74 Abduction Internal Rotation 40 Left Active Shoulder ROM WFL No Testing Position Standing Flexion 140 Extension 55 Abduction 110 External Rotation at 90 degrees 64 Abduction Internal Rotation 36 Comments IR measured at 90 deg abd PT-OP-L Special Tests Start: 07/16/20 08:10 Freq: Status: Active Protocol: Document 07/16/20 15:42 HH (Rec: 07/16/20 16:15 [email or web address]) Special Tests Cervical Spine Special Tests Spurling's Test Test Results +VE B Comments R> L, tingling sensation at 5th digit Shoulder Special Tests Drop Arm Rotator Cuff Test Results -ve Empty Can Test Results -ve Neer Impingement Test Results +VE L PT-OP-M Strength Start: 07/16/20 08:10 Freq: Status: Active Protocol: Document 07/16/20 15:42 HH (Rec: 07/16/20 16:15 HH [email or web address]) Shoulder Strength Shoulder Manual Muscle Testing Right Flexion 4- Good- Extension 3+ Fair+ Abduction (C5) 3+ Fair+ Adduction 4- Good- External Rotation 4- Good- Internal Rotation 4- Good- Left Flexion 4- Good- Extension 3+ Fair+ Abduction (C5) 3+ Fair+ External Rotation 3+ Fair+ Internal Rotation 3+ Fair+ PT-OP-Q Treatments Start: 07/16/20 08:10 Freq: Status: Active Protocol: Document 08/29/20 14:38 SP (Rec: 08/29/20 15:44 SP [id number]) Cardio Equipment Upper Body Ergometer (UBE) Duration (Minutes) 6 RPM 65 Seat Position 9 Height 2.5 Other f/b 1 min each, 20 calories, MET 2 Therapeutic Exercises Supine Exercises flexion & scaption Side left Resistance dwoel Equipment Used greek ball Reps/Minutes x5 each, challenging L over ball- continue on table Comments cued verbal and tactile GH inf glide w/IR palm face midline Prone Exercises FF/ lat stretch over greek ball Prone Exercise Name tall kneel>bent over ball Side left Equipment Used greek ball 65cm Reps/Minutes x3 Comments cued slow pace and chest toward floor -pinch over lateral distal L humerus Sitting Exercises posterior capsule Sitting Exercise Name cross body stretch Side left Reps/Minutes 30 x2 Comments cues on isolating GHJ but not scapula Standing Exercises sleeper stretch Side left Resistance AAROM Reps/Minutes 2x 15 sec hold Comments gentle stretch, cued trunk 90* to wall, FF 90*, elbow 90, scap dep awareness Manual Therapy Treatment Soft Tissue Mobilization post Body Location lats, teres minor/major, Mobilization Type Rolling,Strumming Intensity/Depth Moderate Body Position Prone Comments w/shoulder flex RTC Body Location infraspinatus, subscap, teres , supraspinatus Mobilization Type Strumming,Sustained Pressure Intensity/Depth Moderate Body Position Prone Comments min tightness s Joint Mobilizations partridge protocol Joint L GH, scapulothoracic Grade II Comments prone, side, supine- good tolerance GH Joint B distraciton , L post & inf glides PT-OP-T Assessment and Plan Start: 07/16/20 08:10 Freq: Status: Active Protocol: Document 08/29/20 14:38 SP (Rec: 08/29/20 15:44 SP [id number]) Physical Therapy Assessment Goals sleep Impairment pt currently is unable to sleep on her side d/t pain Penitentiary Goal (LTG) pt will be able to sleep either her L/R side with no complaints of discomfort. 08/22-can sleep on R but L side will wake her up after a while-much improved LTG Duration 12 weeks neuro-sign Impairment reports of tingling and numbness down her pinky fingers [facility]iary Goal (LTG) pt will not have tingling/ numbness down to her pinky fingers by improving her neural sensitivity. 08/22-signfiicantly improved - onlhy occ w/certain movements LTG Duration 12 weeks ROM Impairment pt lacks of ROM in all different anatomical planes Short Term Goal (STG) pt will gain > 10 degrees of ROM in all different planes to improve her mobility 08/22-achieved for all motions except IR & flex STG Duration 6 weeks [facility]iary Goal (LTG) pt will gain > 15 degrees of ROM in all different planes so she can reach the second level of the shelf for cups/ glassess LTG Duration 12 weeks Quickdash Impairment pt scores 31.81 on 1/5 Short Term Goal (STG) pt will score lower than 25 on quickdash to improver her overall shoulder functionality STG Duration goal met to 25 [facility]iary Goal (LTG) pt will score lower than 20 on Quickdash to improve her pain , mobility and strength so she can return to skiiing. LTG Duration 12 weeks Assessment Summary Assessment Pt tolerated manual and review stretching mainly LUE with improvement in FF and ABD by end of tx. Pt reported more point specific brief jolt pain during eccentric abd motions during ther ex. Pt stated still some pinching over lateral L prox humeral head but better than arrived, shld feel more loose now, at end of tx. Physical Therapy Plan Frequency and Duration Frequency of Treatment 2x/wk x 8 then 1x/wk Duration of Treatment 12 weeks Plan of Care Start Date 07/16/19 Plan of Care End Date 10/14/20 Therapeutic Interventions Therapeutic Interventions Home Exercise Program,Joint Mobilizations,Manual Therapy, Neuromuscular Re-education, Patient/Caregiver Education, Self-Care/Home Management,Soft Tissue Mobilization,Taping, Therapeutic Activities, Therapeutic Exercises Modalities Cold Pack/Ice Massage,Electric Stimulation,Hot Packs, Infrared Therapy,Traction- Mechanical,Ultrasound Next Visit Focus/Plan Next Note Type Treatment Note Next Visit Plan Assess last tx: manual including patridge protocol, stretching. Next tx assess currrent ROM for progress making. Cont per PT POC: to work on scapular stability & overhead mobility, pt may benefit from AC & GH joint mobs and 1st rib mob on L side
--- NOTE | 2020-09-02 15:27 | PT.OTN ---
Current Diagnoses Enthesopathy, unspecified (09/02/20) Physical Therapy Treatment Note PT-OP-A Visit Information Start: 07/16/20 08:10 Freq: Status: Active Protocol: Document 09/02/20 14:37 LD (Rec: 09/02/20 15:49 LD [id number]) Out-Patient Physical Therapy Visit Information Visit Information Visit Type Treatment Note Visit Note VIJAY Hunter co-led tx w/ MACHINE FILLER SHREDDER Jess. Visit Start Time 14:37 Visit Stop Time 15:27 Total Visit Minutes 50 Visit Number 06/29 Number of MACHINE FILLER SHREDDER Visits 3 PT-OP-B Current Condition Start: 07/16/20 08:10 Freq: Status: Active Protocol: Document 07/16/20 15:42 HH (Rec: 07/16/20 16:15 HH [email or web address]) Current Condition History of Current Condition Onset Date a year ago Current Complaints Bilateral shoulder pain L>R, unable to reach overhead and her back History of Current Condition This is a 64 yo female here for worsening bilateral shoulder pain, L slightly worse than R. She stated she has been having shoulder pain for many years but it has been getting significantly worse since a year ago but she does not know why. Her pain is 3/10 normally. She can not lift her arms over 90 abduction and needs to external rotate her arm to reach overhead but with pain. She is unable to reach for her 2nd level of the shelf for cups and glasses. Her pain also keeps her awake at night who is unable to sleep on her side now. She also difficulty fernando/ doff her bra and shirts d/t limited mobility and pain. She does have shooting pain/ numbness down his elbow and pinky finger occasionally. Pt loves skiing and would like to return to this hobby once COVID pandemic is over. Prior Treatments and Tests X-ray R d 06/14/20 IMPRESSION: Right shoulder joint degeneration. If the patient's pain or other symptoms persist, consider further evaluation with MRI X-ray L d 06/14/20 IMPRESSION: Moderate left shoulder joint degeneration. If the patient's pain or other symptoms persist, consider further evaluation with MRI Treatment Goals Patient/Caregiver Goals 1. to regain her shoulder mobility so she can reach overhead 2. to regain her shoulder strength so she can return to skiing PT-OP-C Subjective Start: 07/16/20 08:10 Freq: Status: Active Protocol: Document 09/02/20 14:37 LD (Rec: 09/02/20 15:49 LD [id number]) OP-PT Subjective Patient Comments Patient Comments Pt reported sore in upper R trap area after last tx, feels like overdid it on the exercises. PT-OP-E Functional Tests Start: 07/16/20 08:10 Freq: Status: Active Protocol: Document 07/16/20 15:42 HH (Rec: 07/16/20 16:15 HH [email or web address]) Functional Tests Apley's Scratch Test Action 1- Left pain at AC joint region Action 1- Right WFL, no pain Action 2- Left L upper trap d/t pain Action 2- Right T2 Action 3- Left L SIJ Action 3- Right R SIJ PT-OP-F Manual Assessment Start: 07/16/20 08:10 Freq: Status: Active Protocol: Document 07/16/20 15:42 HH (Rec: 07/16/20 16:15 HH [email or web address]) Manual Assessments Soft Tissue Assessment Soft Tissue Mobility Assessment tenderness noted with mod pressure at infraspinatus and teres minor bilaterally PT-OP-K Range of Motion Start: 07/16/20 08:10 Freq: Status: Active Protocol: Document 08/22/20 15:15 LR (Rec: 08/22/20 16:29 [facility] [id number]) Shoulder Goniometric Range of Motion Shoulder Right Active Shoulder ROM WFL No Testing Position Sitting Flexion 137 Extension 50 Abduction 121 External Rotation at 90 degrees 74 Abduction Internal Rotation 40 Left Active Shoulder ROM WFL No Testing Position Standing Flexion 140 Extension 55 Abduction 110 External Rotation at 90 degrees 64 Abduction Internal Rotation 36 Comments IR measured at 90 deg abd PT-OP-L Special Tests Start: 07/16/20 08:10 Freq: Status: Active Protocol: Document 07/16/20 15:42 HH (Rec: 07/16/20 16:15 HH [email or web address]) Special Tests Cervical Spine Special Tests Spurling's Test Test Results +VE B Comments R> L, tingling sensation at 5th digit Shoulder Special Tests Drop Arm Rotator Cuff Test Results -ve Empty Can Test Results -ve Neer Impingement Test Results +VE L PT-OP-M Strength Start: 07/16/20 08:10 Freq: Status: Active Protocol: Document 07/16/20 15:42 HH (Rec: 07/16/20 16:15 HH [email or web address]) Shoulder Strength Shoulder Manual Muscle Testing Right Flexion 4- Good- Extension 3+ Fair+ Abduction (C5) 3+ Fair+ Adduction 4- Good- External Rotation 4- Good- Internal Rotation 4- Good- Left Flexion 4- Good- Extension 3+ Fair+ Abduction (C5) 3+ Fair+ External Rotation 3+ Fair+ Internal Rotation 3+ Fair+ PT-OP-Q Treatments Start: 07/16/20 08:10 Freq: Status: Active Protocol: Document 09/02/20 14:37 LD (Rec: 09/02/20 15:49 LD [id number]) Cardio Equipment Upper Body Ergometer (UBE) Duration (Minutes) 6 RPM 65 Seat Position 9 Height 2.5 Other f/b 1 min each, stopped at 5 min L shld irritated Therapeutic Exercises Supine Exercises flexion & scaption Supine Exercise Name next tx Side left Resistance dowel Equipment Used [place] ball Reps/Minutes x5 each, challenging L over ball- continue on table Comments cued verbal and tactile GH inf glide w/IR palm face midline Prone Exercises FF/ lat stretch over [place] ball Prone Exercise Name hold for now due to irritation at home since last tx Sitting Exercises posterior capsule Sitting Exercise Name AAROM cross body stretch Side left Reps/Minutes 30 Comments cues on isolating GHJ but not scapula (during partridge protocol) Standing Exercises Theracane Standing Exercise Name Self STMs to L Upper trap area Side left Equipment Used theracane Reps/Minutes 5 min Comments good feedback response sleeper stretch Standing Exercise Name add next tx Side left Resistance AAROM Reps/Minutes 2x 15 sec hold Comments gentle stretch, cued trunk 90* to wall, FF 90*, elbow 90, scap dep awareness Manual Therapy Treatment Soft Tissue Mobilization post Body Location R upper trap, deltoid Mobilization Type Rolling,Strumming Intensity/Depth Moderate Body Position Supine Joint Mobilizations partridge protocol Joint L GH, scapulothoracic Grade II Comments prone, side, supine- good tolerance PT-OP-T Assessment and Plan Start: 07/16/20 08:10 Freq: Status: Active Protocol: Document 09/02/20 14:37 LD (Rec: 09/02/20 15:49 LD [id number]) Physical Therapy Assessment Goals sleep Impairment pt currently is unable to sleep on her side d/t pain Shelter Goal (LTG) pt will be able to sleep either her L/R side with no complaints of discomfort. 08/22-can sleep on R but L side will wake her up after a while-much improved LTG Duration 12 weeks neuro-sign Impairment reports of tingling and numbness down her pinky fingers [employer] Goal (LTG) pt will not have tingling/ numbness down to her pinky fingers by improving her neural sensitivity. 08/22-signfiicantly improved - onlhy occ w/certain movements LTG Duration 12 weeks ROM Impairment pt lacks of ROM in all different anatomical planes Short Term Goal (STG) pt will gain > 10 degrees of ROM in all different planes to improve her mobility 08/22-achieved for all motions except IR & flex 09/02/20: Pre tx- FF: 126*, ABD: 123*, IR: L3 Post tx: FF 139*, ABD:115* IR: L5 STG Duration 6 weeks [employer] Goal (LTG) pt will gain > 15 degrees of ROM in all different planes so she can reach the second level of the shelf for cups/ glassess LTG Duration 12 weeks Quickdash Impairment pt scores 31.81 on 1/5 Short Term Goal (STG) pt will score lower than 25 on quickdash to improver her overall shoulder functionality STG Duration goal met to 25 Shelter Goal (LTG) pt will score lower than 20 on Quickdash to improve her pain , mobility and strength so she can return to skiiing. LTG Duration 12 weeks Assessment Summary Assessment Tx focus on manual therapy. Pt responded well to partridge protocol with increase in FF, ABD ROM by end of tx, see ROM goal for measurements. Provided education of self stm w/ theracane to upper traps MWM, pt found it to be effective compared to tennis ball. Physical Therapy Plan Frequency and Duration Frequency of Treatment 2x/wk x 8 then 1x/wk Duration of Treatment 12 weeks Plan of Care Start Date 07/16/19 Plan of Care End Date 10/14/20 Therapeutic Interventions Therapeutic Interventions Home Exercise Program,Joint Mobilizations,Manual Therapy, Neuromuscular Re-education, Patient/Caregiver Education, Self-Care/Home Management,Soft Tissue Mobilization,Taping, Therapeutic Activities, Therapeutic Exercises Modalities Cold Pack/Ice Massage,Electric Stimulation,Hot Packs, Infrared Therapy,Traction- Mechanical,Ultrasound Next Visit Focus/Plan Next Note Type Treatment Note Next Visit Plan Assess last tx: manual including patridge protocol, stretching. Next tx assess currrent ROM for progress making. Cont per PT POC: to work on scapular stability & overhead mobility, pt may benefit from AC & GH joint mobs and 1st rib mob on L side
--- NOTE | 2020-09-05 16:22 | PT.OTN ---
Current Diagnoses Enthesopathy, unspecified (09/05/20) Physical Therapy Treatment Note PT-OP-A Visit Information Start: 07/16/20 08:10 Freq: Status: Active Protocol: Document 09/05/20 15:21 HH (Rec: 09/05/20 16:22 [id number]) Out-Patient Physical Therapy Visit Information Visit Information Visit Type Treatment Note Visit Start Time 15:20 Visit Stop Time 16:00 Total Visit Minutes 40 Visit Number 13/ Number of PRIMER POWDER BLENDER WET Visits 0 PT-OP-B Current Condition Start: 07/16/20 08:10 Freq: Status: Active Protocol: Document 07/16/20 15:42 HH (Rec: 07/16/20 16:15 [email or web address]) Current Condition History of Current Condition Onset Date a year ago Current Complaints Bilateral shoulder pain L>R, unable to reach overhead and her back History of Current Condition This is a 64 yo female here for worsening bilateral shoulder pain, L slightly worse than R. She stated she has been having shoulder pain for many years but it has been getting significantly worse since a year ago but she does not know why. Her pain is 3/10 normally. She can not lift her arms over 90 abduction and needs to external rotate her arm to reach overhead but with pain. She is unable to reach for her 2nd level of the shelf for cups and glasses. Her pain also keeps her awake at night who is unable to sleep on her side now. She also difficulty fernando/ doff her bra and shirts d/t limited mobility and pain. She does have shooting pain/ numbness down his elbow and pinky finger occasionally. Pt loves skiing and would like to return to this hobby once COVID pandemic is over. Prior Treatments and Tests X-ray R d 06/14/20 IMPRESSION: Right shoulder joint degeneration. If the patient's pain or other symptoms persist, consider further evaluation with MRI X-ray L [facility] 06/14/20 IMPRESSION: Moderate left shoulder joint degeneration. If the patient's pain or other symptoms persist, consider further evaluation with MRI Treatment Goals Patient/Caregiver Goals 1. to regain her shoulder mobility so she can reach overhead 2. to regain her shoulder strength so she can return to skiing PT-OP-C Subjective Start: 07/16/20 08:10 Freq: Status: Active Protocol: Document 09/05/20 15:21 (Rec: 09/05/20 16:22 [id number]) OP-PT Subjective Patient Comments Patient Comments My R side is doing really well. My L side is still cranky. Im getting better and better for sure Patient Reported Progress Improving PT-OP-E Functional Tests Start: 07/16/20 08:10 Freq: Status: Active Protocol: Document 07/16/20 15:42 (Rec: 07/16/20 16:15 [email or web address]) Functional Tests Apley's Scratch Test Action 1- Left pain at AC joint region Action 1- Right WFL, no pain Action 2- Left L upper trap d/t pain Action 2- Right T2 Action 3- Left L SIJ Action 3- Right R SIJ PT-OP-F Manual Assessment Start: 07/16/20 08:10 Freq: Status: Active Protocol: Document 07/16/20 15:42 (Rec: 07/16/20 16:15 [email or web address]) Manual Assessments Soft Tissue Assessment Soft Tissue Mobility Assessment tenderness noted with mod pressure at infraspinatus and teres minor bilaterally PT-OP-K Range of Motion Start: 07/16/20 08:10 Freq: Status: Active Protocol: Document 08/22/20 15:15 [facility] (Rec: 08/22/20 16:29 [facility] [id number]) Shoulder Goniometric Range of Motion Shoulder Right Active Shoulder ROM WFL No Testing Position Sitting Flexion 137 Extension 50 Abduction 121 External Rotation at 90 degrees 74 Abduction Internal Rotation 40 Left Active Shoulder ROM WFL No Testing Position Standing Flexion 140 Extension 55 Abduction 110 External Rotation at 90 degrees 64 Abduction Internal Rotation 36 Comments IR measured at 90 deg abd PT-OP-L Special Tests Start: 07/16/20 08:10 Freq: Status: Active Protocol: Document 07/16/20 15:42 (Rec: 07/16/20 16:15 [email or web address]) Special Tests Cervical Spine Special Tests Spurling's Test Test Results +VE B Comments R> L, tingling sensation at 5th digit Shoulder Special Tests Drop Arm Rotator Cuff Test Results -ve Empty Can Test Results -ve Neer Impingement Test Results +VE L PT-OP-M Strength Start: 07/16/20 08:10 Freq: Status: Active Protocol: Document 07/16/20 15:42 HH (Rec: 07/16/20 16:15 [email or web address]) Shoulder Strength Shoulder Manual Muscle Testing Right Flexion 4- Good- Extension 3+ Fair+ Abduction (C5) 3+ Fair+ Adduction 4- Good- External Rotation 4- Good- Internal Rotation 4- Good- Left Flexion 4- Good- Extension 3+ Fair+ Abduction (C5) 3+ Fair+ External Rotation 3+ Fair+ Internal Rotation 3+ Fair+ PT-OP-Q Treatments Start: 07/16/20 08:10 Freq: Status: Active Protocol: Document 09/05/20 15:21 (Rec: 09/05/20 16:22 [id number]) Cardio Equipment Upper Body Ergometer (UBE) Duration (Minutes) 6 RPM 65 Seat Position 9 Height 2.5 Other f/b 1 min each, stopped at 5 min , no irritation Therapeutic Exercises Prone Exercises Prone I, Y,T Prone Exercise Name unilateral Side bilateral Reps/Minutes 8 x2 Sidelying Exercises shoulder abd Side left Equipment Used 3lbs DB Reps/Minutes 10 x2 shoulder ER Side left Equipment Used 3lbs DB Reps/Minutes 10x2 Sitting Exercises OH roegr Sitting Exercise Name flexion, abd , extension, behind back Side bilateral Reps/Minutes 5 mins Manual Therapy Treatment Soft Tissue Mobilization post Body Location R upper trap, deltoid Mobilization Type Rolling,Strumming Intensity/Depth Moderate Body Position Supine Joint Mobilizations upward rotation Joint L shoulder Grade III Body Position Standing Comments no pain with standing shoulder abduction, able to reach full range PT-OP-T Assessment and Plan Start: 07/16/20 08:10 Freq: Status: Active Protocol: Document 09/05/20 15:21 (Rec: 09/05/20 16:22 [id number]) Physical Therapy Assessment Goals sleep Impairment pt currently is unable to sleep on her side d/t pain [facility] Goal (LTG) pt will be able to sleep either her L/R side with no complaints of discomfort. 08/22-can sleep on R but L side will wake her up after a while-much improved LTG Duration 12 weeks neuro-sign Impairment reports of tingling and numbness down her pinky fingers Vp Legal Affairs Goal (LTG) pt will not have tingling/ numbness down to her pinky fingers by improving her neural sensitivity. 08/22-signfiicantly improved - onlhy occ w/certain movements LTG Duration 12 weeks ROM Impairment pt lacks of ROM in all different anatomical planes Short Term Goal (STG) pt will gain > 10 degrees of ROM in all different planes to improve her mobility 08/22-achieved for all motions except IR & flex 09/02/20: Pre tx- FF: 126*, ABD: 123*, IR: L3 Post tx: FF 139*, ABD:115* IR: L5 STG Duration 6 weeks Vp Legal Affairs Goal (LTG) pt will gain > 15 degrees of ROM in all different planes so she can reach the second level of the shelf for cups/ glassess LTG Duration 12 weeks Quickdash Impairment pt scores 31.81 on 1/5 Short Term Goal (STG) pt will score lower than 25 on quickdash to improver her overall shoulder functionality STG Duration goal met to 25 [facility] Goal (LTG) pt will score lower than 20 on Quickdash to improve her pain , mobility and strength so she can return to skiiing. LTG Duration 12 weeks Assessment Summary Assessment pt cont to improve with ROM and strength. She is able lucas ex with 3 lbs DB in gravity eliminated positions. Pt''s pain and ROM improved during abduction with assistance on scapular upward rotation. Will progress pt's ex into gravity position. Physical Therapy Plan Frequency and Duration Frequency of Treatment 2x/wk x 8 then 1x/wk Duration of Treatment 12 weeks Plan of Care Start Date 07/16/19 Plan of Care End Date 10/14/20 Next Visit Focus/Plan Next Note Type Treatment Note Next Visit Plan Assess last tx: manual including patridge protocol, stretching. Next tx assess currrent ROM for progress making. Cont per PT POC: to work on scapular stability & overhead mobility, pt may benefit from AC & GH joint mobs and 1st rib mob on L side
--- NOTE | 2020-09-09 15:59 | PT.OTN ---
Current Diagnoses Enthesopathy, unspecified (09/09/20) Physical Therapy Treatment Note PT-OP-A Visit Information Start: 07/16/20 08:10 Freq: Status: Active Protocol: Document 09/09/20 15:05 HH (Rec: 09/09/20 15:59 HH [id number]) Out-Patient Physical Therapy Visit Information Visit Information Visit Type Treatment Note Visit Start Time 15:04 Visit Stop Time 15:45 Total Visit Minutes 41 Visit Number 14/ Number of MINE EXPLORATION ENGINEER Visits 0 PT-OP-B Current Condition Start: 07/16/20 08:10 Freq: Status: Active Protocol: Document 07/16/20 15:42 HH (Rec: 07/16/20 16:15 [email or web address]) Current Condition History of Current Condition Onset Date a year ago Current Complaints Bilateral shoulder pain L>R, unable to reach overhead and her back History of Current Condition This is a 64 yo female here for worsening bilateral shoulder pain, L slightly worse than R. She stated she has been having shoulder pain for many years but it has been getting significantly worse since a year ago but she does not know why. Her pain is 3/10 normally. She can not lift her arms over 90 abduction and needs to external rotate her arm to reach overhead but with pain. She is unable to reach for her 2nd level of the shelf for cups and glasses. Her pain also keeps her awake at night who is unable to sleep on her side now. She also difficulty fernando/ doff her bra and shirts d/t limited mobility and pain. She does have shooting pain/ numbness down his elbow and pinky finger occasionally. Pt loves skiing and would like to return to this hobby once COVID pandemic is over. Prior Treatments and Tests X-ray R d 06/14/20 IMPRESSION: Right shoulder joint degeneration. If the patient's pain or other symptoms persist, consider further evaluation with MRI X-ray L [facility] 06/14/20 IMPRESSION: Moderate left shoulder joint degeneration. If the patient's pain or other symptoms persist, consider further evaluation with MRI Treatment Goals Patient/Caregiver Goals 1. to regain her shoulder mobility so she can reach overhead 2. to regain her shoulder strength so she can return to skiing PT-OP-C Subjective Start: 07/16/20 08:10 Freq: Status: Active Protocol: Document 09/09/20 15:05 (Rec: 09/09/20 15:59 [id number]) OP-PT Subjective Patient Comments Patient Comments My L shoulder is still around the same. My L trap is bothering me from doing the prone Y and I. R shoulder is doing really good. Patient Reported Progress Improving PT-OP-E Functional Tests Start: 07/16/20 08:10 Freq: Status: Active Protocol: Document 07/16/20 15:42 (Rec: 07/16/20 16:15 [email or web address]) Functional Tests Apley's Scratch Test Action 1- Left pain at AC joint region Action 1- Right WFL, no pain Action 2- Left L upper trap d/t pain Action 2- Right T2 Action 3- Left L SIJ Action 3- Right R SIJ PT-OP-F Manual Assessment Start: 07/16/20 08:10 Freq: Status: Active Protocol: Document 07/16/20 15:42 (Rec: 07/16/20 16:15 [email or web address]) Manual Assessments Soft Tissue Assessment Soft Tissue Mobility Assessment tenderness noted with mod pressure at infraspinatus and teres minor bilaterally PT-OP-K Range of Motion Start: 07/16/20 08:10 Freq: Status: Active Protocol: Document 08/22/20 15:15 [facility] (Rec: 08/22/20 16:29 [facility] [id number]) Shoulder Goniometric Range of Motion Shoulder Right Active Shoulder ROM WFL No Testing Position Sitting Flexion 137 Extension 50 Abduction 121 External Rotation at 90 degrees 74 Abduction Internal Rotation 40 Left Active Shoulder ROM WFL No Testing Position Standing Flexion 140 Extension 55 Abduction 110 External Rotation at 90 degrees 64 Abduction Internal Rotation 36 Comments IR measured at 90 deg abd PT-OP-L Special Tests Start: 07/16/20 08:10 Freq: Status: Active Protocol: Document 07/16/20 15:42 (Rec: 07/16/20 16:15 [email or web address]) Special Tests Cervical Spine Special Tests Spurling's Test Test Results +VE B Comments R> L, tingling sensation at 5th digit Shoulder Special Tests Drop Arm Rotator Cuff Test Results -ve Empty Can Test Results -ve Neer Impingement Test Results +VE L PT-OP-M Strength Start: 07/16/20 08:10 Freq: Status: Active Protocol: Document 07/16/20 15:42 (Rec: 07/16/20 16:15 [email or web address]) Shoulder Strength Shoulder Manual Muscle Testing Right Flexion 4- Good- Extension 3+ Fair+ Abduction (C5) 3+ Fair+ Adduction 4- Good- External Rotation 4- Good- Internal Rotation 4- Good- Left Flexion 4- Good- Extension 3+ Fair+ Abduction (C5) 3+ Fair+ External Rotation 3+ Fair+ Internal Rotation 3+ Fair+ PT-OP-Q Treatments Start: 07/16/20 08:10 Freq: Status: Active Protocol: Document 09/09/20 15:05 (Rec: 09/09/20 15:59 [id number]) Therapeutic Exercises Supine Exercises SA punch Equipment Used 3lbs DB Comments for HEP supine SA punch and flexion Side bilateral Equipment Used 8 x 3 Comments for HEP, cues on SA engagement Sidelying Exercises shoulder abd Side left Equipment Used 3lbs DB Reps/Minutes 10 x2 shoulder ER Side left Equipment Used 3lbs DB Reps/Minutes 10x2 open book Side bilateral Reps/Minutes 10 x 2 Sitting Exercises OH roger Sitting Exercise Name flexion, abd , extension, behind back Side bilateral Reps/Minutes 5 mins Manual Therapy Treatment Soft Tissue Mobilization triceps Body Location L Mobilization Type Sustained Pressure,Trigger Point Release Intensity/Depth Moderate Body Position Sidelying PT-OP-T Assessment and Plan Start: 07/16/20 08:10 Freq: Status: Active Protocol: Document 09/09/20 15:05 (Rec: 09/09/20 15:59 [id number]) Physical Therapy Assessment Goals sleep Impairment pt currently is unable to sleep on her side d/t pain Detention Goal (LTG) pt will be able to sleep either her L/R side with no complaints of discomfort. 08/22-can sleep on R but L side will wake her up after a while-much improved LTG Duration 12 weeks neuro-sign Impairment reports of tingling and numbness down her pinky fingers Special Distribution Clerk Goal (LTG) pt will not have tingling/ numbness down to her pinky fingers by improving her neural sensitivity. 08/22-signfiicantly improved - onlhy occ w/certain movements LTG Duration 12 weeks ROM Impairment pt lacks of ROM in all different anatomical planes Short Term Goal (STG) pt will gain > 10 degrees of ROM in all different planes to improve her mobility 08/22-achieved for all motions except IR & flex 09/02/20: Pre tx- FF: 126*, ABD: 123*, IR: L3 Post tx: FF 139*, ABD:115* IR: L5 STG Duration 6 weeks Special Distribution Clerk Goal (LTG) pt will gain > 15 degrees of ROM in all different planes so she can reach the second level of the shelf for cups/ glassess LTG Duration 12 weeks Quickdash Impairment pt scores 31.81 on 1/5 Short Term Goal (STG) pt will score lower than 25 on quickdash to improver her overall shoulder functionality STG Duration goal met to 25 Detention Goal (LTG) pt will score lower than 20 on Quickdash to improve her pain , mobility and strength so she can return to skiiing. LTG Duration 12 weeks Assessment Summary Assessment Pt L shoulder ROM cont to improve immediately after overall strengthening and scap stability exercises. Pt possibly has partial tear on supraspinatus but strengthening remaining RTC and scap stabilizer does show good progress. Will change her POC to once a week/ 8 weeks. Physical Therapy Plan Frequency and Duration Frequency of Treatment 1x/Week Duration of Treatment 8 weeks Plan of Care Start Date 07/16/19 Plan of Care End Date 10/14/20 Next Visit Focus/Plan Next Note Type Treatment Note Next Visit Plan Assess last tx: manual including patridge protocol, stretching. Next tx assess currrent ROM for progress making. Cont per PT POC: to work on scapular stability & overhead mobility, pt may benefit from AC & GH joint mobs and 1st rib mob on L side
--- NOTE | 2020-09-12 16:12 | PT.OTN ---
Current Diagnoses Enthesopathy, unspecified (09/12/20) Physical Therapy Treatment Note PT-OP-A Visit Information Start: 07/16/20 08:10 Freq: Status: Active Protocol: Document 09/12/20 15:14 HH (Rec: 09/12/20 16:11 [id number]) Out-Patient Physical Therapy Visit Information Visit Information Visit Type Treatment Note Visit Start Time 15:18 Visit Stop Time 16:00 Total Visit Minutes 42 Visit Number 15/ Number of POKER ROOM MANAGER Visits 0 PT-OP-B Current Condition Start: 07/16/20 08:10 Freq: Status: Active Protocol: Document 07/16/20 15:42 HH (Rec: 07/16/20 16:15 [email or web address]) Current Condition History of Current Condition Onset Date a year ago Current Complaints Bilateral shoulder pain L>R, unable to reach overhead and her back History of Current Condition This is a 64 yo female here for worsening bilateral shoulder pain, L slightly worse than R. She stated she has been having shoulder pain for many years but it has been getting significantly worse since a year ago but she does not know why. Her pain is 3/10 normally. She can not lift her arms over 90 abduction and needs to external rotate her arm to reach overhead but with pain. She is unable to reach for her 2nd level of the shelf for cups and glasses. Her pain also keeps her awake at night who is unable to sleep on her side now. She also difficulty fernando/ doff her bra and shirts d/t limited mobility and pain. She does have shooting pain/ numbness down his elbow and pinky finger occasionally. Pt loves skiing and would like to return to this hobby once COVID pandemic is over. Prior Treatments and Tests X-ray R d 06/14/20 IMPRESSION: Right shoulder joint degeneration. If the patient's pain or other symptoms persist, consider further evaluation with MRI X-ray L [facility] 06/14/20 IMPRESSION: Moderate left shoulder joint degeneration. If the patient's pain or other symptoms persist, consider further evaluation with MRI Treatment Goals Patient/Caregiver Goals 1. to regain her shoulder mobility so she can reach overhead 2. to regain her shoulder strength so she can return to skiing PT-OP-C Subjective Start: 07/16/20 08:10 Freq: Status: Active Protocol: Document 09/12/20 15:14 (Rec: 09/12/20 16:11 [id number]) OP-PT Subjective Patient Comments Patient Comments My R side is very good and only have pain reaching back. My L side does take some time to get ready in the morning Patient Reported Progress Improving PT-OP-E Functional Tests Start: 07/16/20 08:10 Freq: Status: Active Protocol: Document 07/16/20 15:42 (Rec: 07/16/20 16:15 [email or web address]) Functional Tests Apley's Scratch Test Action 1- Left pain at AC joint region Action 1- Right WFL, no pain Action 2- Left L upper trap d/t pain Action 2- Right T2 Action 3- Left L SIJ Action 3- Right R SIJ PT-OP-F Manual Assessment Start: 07/16/20 08:10 Freq: Status: Active Protocol: Document 07/16/20 15:42 (Rec: 07/16/20 16:15 [email or web address]) Manual Assessments Soft Tissue Assessment Soft Tissue Mobility Assessment tenderness noted with mod pressure at infraspinatus and teres minor bilaterally PT-OP-K Range of Motion Start: 07/16/20 08:10 Freq: Status: Active Protocol: Document 08/22/20 15:15 [facility] (Rec: 08/22/20 16:29 [facility] [id number]) Shoulder Goniometric Range of Motion Shoulder Right Active Shoulder ROM WFL No Testing Position Sitting Flexion 137 Extension 50 Abduction 121 External Rotation at 90 degrees 74 Abduction Internal Rotation 40 Left Active Shoulder ROM WFL No Testing Position Standing Flexion 140 Extension 55 Abduction 110 External Rotation at 90 degrees 64 Abduction Internal Rotation 36 Comments IR measured at 90 deg abd PT-OP-L Special Tests Start: 07/16/20 08:10 Freq: Status: Active Protocol: Document 07/16/20 15:42 (Rec: 07/16/20 16:15 [email or web address]) Special Tests Cervical Spine Special Tests Spurling's Test Test Results +VE B Comments R> L, tingling sensation at 5th digit Shoulder Special Tests Drop Arm Rotator Cuff Test Results -ve Empty Can Test Results -ve Neer Impingement Test Results +VE L PT-OP-M Strength Start: 07/16/20 08:10 Freq: Status: Active Protocol: Document 07/16/20 15:42 (Rec: 07/16/20 16:15 [email or web address]) Shoulder Strength Shoulder Manual Muscle Testing Right Flexion 4- Good- Extension 3+ Fair+ Abduction (C5) 3+ Fair+ Adduction 4- Good- External Rotation 4- Good- Internal Rotation 4- Good- Left Flexion 4- Good- Extension 3+ Fair+ Abduction (C5) 3+ Fair+ External Rotation 3+ Fair+ Internal Rotation 3+ Fair+ PT-OP-Q Treatments Start: 07/16/20 08:10 Freq: Status: Active Protocol: Document 09/12/20 15:14 (Rec: 09/12/20 16:11 [id number]) Cardio Equipment Upper Body Ergometer (UBE) Duration (Minutes) 6 RPM 65 Seat Position 9 Height 2.5 Other f/b 1 min each, stopped at 5 min , no irritation Therapeutic Exercises Supine Exercises SA punch Equipment Used 3lbs DB Comments for HEP supine SA punch and flexion Side bilateral Equipment Used 8 x 3 Comments for HEP, cues on SA engagement Sidelying Exercises shoulder abd Side left Equipment Used 3lbs DB Reps/Minutes 10 x2 shoulder ER Side left Equipment Used 3lbs DB Reps/Minutes 10x2 Sitting Exercises OH roger Sitting Exercise Name flexion, abd , extension, behind back Side bilateral Reps/Minutes 5 mins Standing Exercises flexion with theraband Standing Exercise Name pull apart first then flexion Side bilateral Equipment Used level 1 band Reps/Minutes 10 x2 theraband pull apart Side bilateral Equipment Used level 1 band Reps/Minutes 10 x 2 extension with IR Side bilateral Equipment Used PVC bar Reps/Minutes 10 x2 PT-OP-T Assessment and Plan Start: 07/16/20 08:10 Freq: Status: Active Protocol: Document 09/12/20 15:14 (Rec: 09/12/20 16:11 [id number]) Physical Therapy Assessment Goals sleep Impairment pt currently is unable to sleep on her side d/t pain Skilled Nursing Goal (LTG) pt will be able to sleep either her L/R side with no complaints of discomfort. 08/22-can sleep on R but L side will wake her up after a while-much improved LTG Duration 12 weeks neuro-sign Impairment reports of tingling and numbness down her pinky fingers Skilled Nursing Goal (LTG) pt will not have tingling/ numbness down to her pinky fingers by improving her neural sensitivity. 08/22-signfiicantly improved - onlhy occ w/certain movements LTG Duration 12 weeks ROM Impairment pt lacks of ROM in all different anatomical planes Short Term Goal (STG) pt will gain > 10 degrees of ROM in all different planes to improve her mobility 08/22-achieved for all motions except IR & flex 09/02/20: Pre tx- FF: 126*, ABD: 123*, IR: L3 Post tx: FF 139*, ABD:115* IR: L5 STG Duration 6 weeks Skilled Nursing Goal (LTG) pt will gain > 15 degrees of ROM in all different planes so she can reach the second level of the shelf for cups/ glassess LTG Duration 12 weeks Quickdash Impairment pt scores 31.81 on 1/5 Short Term Goal (STG) pt will score lower than 25 on quickdash to improver her overall shoulder functionality STG Duration goal met to 25 Tutoring Assistant Goal (LTG) pt will score lower than 20 on Quickdash to improve her pain , mobility and strength so she can return to skiiing. LTG Duration 12 weeks Assessment Summary Assessment Pt lucas session well. Will progress to ex in standing position starting from next visit. Physical Therapy Plan Frequency and Duration Frequency of Treatment 1x/Week Duration of Treatment 8 weeks Plan of Care Start Date 07/16/19 Plan of Care End Date 10/14/20 Next Visit Focus/Plan Next Note Type Treatment Note Next Visit Plan Assess last tx: manual including patridge protocol, stretching. Next tx assess currrent ROM for progress making. Cont per PT POC: to work on scapular stability & overhead mobility, pt may benefit from AC & GH joint mobs and 1st rib mob on L side
--- NOTE | 2020-09-20 12:05 | PT.OTN ---
Current Diagnoses Enthesopathy, unspecified (09/20/20) Physical Therapy Treatment Note PT-OP-A Visit Information Start: 07/16/20 08:10 Freq: Status: Active Protocol: Document 09/20/20 11:15 HH (Rec: 09/20/20 12:04 [id number]) Out-Patient Physical Therapy Visit Information Visit Information Visit Type Treatment Note Visit Start Time 15:18 Visit Stop Time 16:00 Total Visit Minutes 42 Visit Number 16/ Number of MANAGER RESOURCE Visits 0 PT-OP-B Current Condition Start: 07/16/20 08:10 Freq: Status: Active Protocol: Document 07/16/20 15:42 HH (Rec: 07/16/20 16:15 [email or web address]) Current Condition History of Current Condition Onset Date a year ago Current Complaints Bilateral shoulder pain L>R, unable to reach overhead and her back History of Current Condition This is a 64 yo female here for worsening bilateral shoulder pain, L slightly worse than R. She stated she has been having shoulder pain for many years but it has been getting significantly worse since a year ago but she does not know why. Her pain is 3/10 normally. She can not lift her arms over 90 abduction and needs to external rotate her arm to reach overhead but with pain. She is unable to reach for her 2nd level of the shelf for cups and glasses. Her pain also keeps her awake at night who is unable to sleep on her side now. She also difficulty fernando/ doff her bra and shirts d/t limited mobility and pain. She does have shooting pain/ numbness down his elbow and pinky finger occasionally. Pt loves skiing and would like to return to this hobby once COVID pandemic is over. Prior Treatments and Tests X-ray R d 06/14/20 IMPRESSION: Right shoulder joint degeneration. If the patient's pain or other symptoms persist, consider further evaluation with MRI X-ray L [facility] 06/14/20 IMPRESSION: Moderate left shoulder joint degeneration. If the patient's pain or other symptoms persist, consider further evaluation with MRI Treatment Goals Patient/Caregiver Goals 1. to regain her shoulder mobility so she can reach overhead 2. to regain her shoulder strength so she can return to skiing PT-OP-C Subjective Start: 07/16/20 08:10 Freq: Status: Active Protocol: Document 09/20/20 11:15 (Rec: 09/20/20 12:04 [id number]) OP-PT Subjective Patient Comments Patient Comments My R one is 85% better now. L one is 75% better. Reaching behind is still the worst. Patient Reported Progress Improving PT-OP-E Functional Tests Start: 07/16/20 08:10 Freq: Status: Active Protocol: Document 07/16/20 15:42 HH (Rec: 07/16/20 16:15 [email or web address]) Functional Tests Apley's Scratch Test Action 1- Left pain at AC joint region Action 1- Right WFL, no pain Action 2- Left L upper trap d/t pain Action 2- Right T2 Action 3- Left L SIJ Action 3- Right R SIJ PT-OP-F Manual Assessment Start: 07/16/20 08:10 Freq: Status: Active Protocol: Document 07/16/20 15:42 (Rec: 07/16/20 16:15 [email or web address]) Manual Assessments Soft Tissue Assessment Soft Tissue Mobility Assessment tenderness noted with mod pressure at infraspinatus and teres minor bilaterally PT-OP-K Range of Motion Start: 07/16/20 08:10 Freq: Status: Active Protocol: Document 08/22/20 15:15 [facility] (Rec: 08/22/20 16:29 [facility] [id number]) Shoulder Goniometric Range of Motion Shoulder Right Active Shoulder ROM WFL No Testing Position Sitting Flexion 137 Extension 50 Abduction 121 External Rotation at 90 degrees 74 Abduction Internal Rotation 40 Left Active Shoulder ROM WFL No Testing Position Standing Flexion 140 Extension 55 Abduction 110 External Rotation at 90 degrees 64 Abduction Internal Rotation 36 Comments IR measured at 90 deg abd PT-OP-L Special Tests Start: 07/16/20 08:10 Freq: Status: Active Protocol: Document 07/16/20 15:42 (Rec: 07/16/20 16:15 [email or web address]) Special Tests Cervical Spine Special Tests Spurling's Test Test Results +VE B Comments R> L, tingling sensation at 5th digit Shoulder Special Tests Drop Arm Rotator Cuff Test Results -ve Empty Can Test Results -ve Neer Impingement Test Results +VE L PT-OP-M Strength Start: 07/16/20 08:10 Freq: Status: Active Protocol: Document 07/16/20 15:42 HH (Rec: 07/16/20 16:15 [email or web address]) Shoulder Strength Shoulder Manual Muscle Testing Right Flexion 4- Good- Extension 3+ Fair+ Abduction (C5) 3+ Fair+ Adduction 4- Good- External Rotation 4- Good- Internal Rotation 4- Good- Left Flexion 4- Good- Extension 3+ Fair+ Abduction (C5) 3+ Fair+ External Rotation 3+ Fair+ Internal Rotation 3+ Fair+ PT-OP-Q Treatments Start: 07/16/20 08:10 Freq: Status: Active Protocol: Document 09/20/20 11:15 (Rec: 09/20/20 12:04 [id number]) Cardio Equipment Upper Body Ergometer (UBE) Duration (Minutes) 6 RPM 65 Seat Position 9 Height 2.5 Other f/b 1 min each, stopped at 5 min , no irritation Therapeutic Exercises Sitting Exercises OH roger Sitting Exercise Name flexion, abd , extension, behind back Side bilateral Reps/Minutes 5 mins Standing Exercises shoulder extension stretch Side bilateral Equipment Used with level 5 band Comments for HEP shoulder abd Side bilateral Equipment Used 1-2 lbs DB Comments for HEP flexion with theraband Standing Exercise Name pull apart first then flexion Side bilateral Equipment Used level 1 band Reps/Minutes 10 x2 Comments for HEP theraband pull apart Side bilateral Equipment Used level 1 band Reps/Minutes 10 x 2 Comments for HEP PT-OP-T Assessment and Plan Start: 07/16/20 08:10 Freq: Status: Active Protocol: Document 09/20/20 11:15 (Rec: 09/20/20 12:04 [id number]) Physical Therapy Assessment Goals sleep Impairment pt currently is unable to sleep on her side d/t pain Senior Living Goal (LTG) pt will be able to sleep either her L/R side with no complaints of discomfort. 08/22-can sleep on R but L side will wake her up after a while-much improved LTG Duration 12 weeks neuro-sign Impairment reports of tingling and numbness down her pinky fingers Nursery Worker Goal (LTG) pt will not have tingling/ numbness down to her pinky fingers by improving her neural sensitivity. 08/22-signfiicantly improved - onlhy occ w/certain movements LTG Duration 12 weeks ROM Impairment pt lacks of ROM in all different anatomical planes Short Term Goal (STG) pt will gain > 10 degrees of ROM in all different planes to improve her mobility 08/22-achieved for all motions except IR & flex 09/02/20: Pre tx- FF: 126*, ABD: 123*, IR: L3 Post tx: FF 139*, ABD:115* IR: L5 STG Duration 6 weeks Nursery Worker Goal (LTG) pt will gain > 15 degrees of ROM in all different planes so she can reach the second level of the shelf for cups/ glassess LTG Duration 12 weeks Quickdash Impairment pt scores 31.81 on 1/5 Short Term Goal (STG) pt will score lower than 25 on quickdash to improver her overall shoulder functionality STG Duration goal met to 25 Nursery Worker Goal (LTG) pt will score lower than 20 on Quickdash to improve her pain , mobility and strength so she can return to skiiing. LTG Duration 12 weeks Assessment Summary Assessment Pt cont to progress with close to full ROM for L shoulder. Reaching behind is still hardest but she felt better after extension stretch. Physical Therapy Plan Frequency and Duration Frequency of Treatment 1x/Week Duration of Treatment 8 weeks Plan of Care Start Date 07/16/19 Plan of Care End Date 10/14/20 Next Visit Focus/Plan Next Note Type Treatment Note Next Visit Plan Assess last tx: manual including patridge protocol, stretching. Next tx assess currrent ROM for progress making. Cont per PT POC: to work on scapular stability & overhead mobility, pt may benefit from AC & GH joint mobs and 1st rib mob on L side
--- NOTE | 2020-09-27 12:04 | PT.OTN ---
Current Diagnoses Enthesopathy, unspecified (09/27/20) Physical Therapy Treatment Note PT-OP-A Visit Information Start: 07/16/20 08:10 Freq: Status: Active Protocol: Document 09/27/20 11:13 HH (Rec: 09/27/20 12:04 [id number]) Out-Patient Physical Therapy Visit Information Visit Information Visit Type Treatment Note Visit Start Time 11:15 Visit Stop Time 12:00 Total Visit Minutes 45 Visit Number Number of CONCRETE MIXER OPERATOR HELPER Visits 0 PT-OP-B Current Condition Start: 07/16/20 08:10 Freq: Status: Active Protocol: Document 07/16/20 15:42 HH (Rec: 07/16/20 16:15 [email or web address]) Current Condition History of Current Condition Onset Date a year ago Current Complaints Bilateral shoulder pain L>R, unable to reach overhead and her back History of Current Condition This is a 64 yo female here for worsening bilateral shoulder pain, L slightly worse than R. She stated she has been having shoulder pain for many years but it has been getting significantly worse since a year ago but she does not know why. Her pain is 3/10 normally. She can not lift her arms over 90 abduction and needs to external rotate her arm to reach overhead but with pain. She is unable to reach for her 2nd level of the shelf for cups and glasses. Her pain also keeps her awake at night who is unable to sleep on her side now. She also difficulty fernando/ doff her bra and shirts d/t limited mobility and pain. She does have shooting pain/ numbness down his elbow and pinky finger occasionally. Pt loves skiing and would like to return to this hobby once COVID pandemic is over. Prior Treatments and Tests X-ray R d 06/14/20 IMPRESSION: Right shoulder joint degeneration. If the patient's pain or other symptoms persist, consider further evaluation with MRI X-ray L [facility] 06/14/20 IMPRESSION: Moderate left shoulder joint degeneration. If the patient's pain or other symptoms persist, consider further evaluation with MRI Treatment Goals Patient/Caregiver Goals 1. to regain her shoulder mobility so she can reach overhead 2. to regain her shoulder strength so she can return to skiing PT-OP-C Subjective Start: 07/16/20 08:10 Freq: Status: Active Protocol: Document 09/27/20 11:13 (Rec: 09/27/20 12:04 [id number]) OP-PT Subjective Patient Comments Patient Comments R side is doing good but L side is slowly but getting there. Patient Reported Progress Improving PT-OP-E Functional Tests Start: 07/16/20 08:10 Freq: Status: Active Protocol: Document 07/16/20 15:42 (Rec: 07/16/20 16:15 [email or web address]) Functional Tests Apley's Scratch Test Action 1- Left pain at AC joint region Action 1- Right WFL, no pain Action 2- Left L upper trap d/t pain Action 2- Right T2 Action 3- Left L SIJ Action 3- Right R SIJ PT-OP-F Manual Assessment Start: 07/16/20 08:10 Freq: Status: Active Protocol: Document 07/16/20 15:42 (Rec: 07/16/20 16:15 [email or web address]) Manual Assessments Soft Tissue Assessment Soft Tissue Mobility Assessment tenderness noted with mod pressure at infraspinatus and teres minor bilaterally PT-OP-K Range of Motion Start: 07/16/20 08:10 Freq: Status: Active Protocol: Document 08/22/20 15:15 [facility] (Rec: 08/22/20 16:29 [facility] [id number]) Shoulder Goniometric Range of Motion Shoulder Right Active Shoulder ROM WFL No Testing Position Sitting Flexion 137 Extension 50 Abduction 121 External Rotation at 90 degrees 74 Abduction Internal Rotation 40 Left Active Shoulder ROM WFL No Testing Position Standing Flexion 140 Extension 55 Abduction 110 External Rotation at 90 degrees 64 Abduction Internal Rotation 36 Comments IR measured at 90 deg abd PT-OP-L Special Tests Start: 07/16/20 08:10 Freq: Status: Active Protocol: Document 07/16/20 15:42 (Rec: 07/16/20 16:15 [email or web address]) Special Tests Cervical Spine Special Tests Spurling's Test Test Results +VE B Comments R> L, tingling sensation at 5th digit Shoulder Special Tests Drop Arm Rotator Cuff Test Results -ve Empty Can Test Results -ve Neer Impingement Test Results +VE L PT-OP-M Strength Start: 07/16/20 08:10 Freq: Status: Active Protocol: Document 07/16/20 15:42 (Rec: 07/16/20 16:15 [email or web address]) Shoulder Strength Shoulder Manual Muscle Testing Right Flexion 4- Good- Extension 3+ Fair+ Abduction (C5) 3+ Fair+ Adduction 4- Good- External Rotation 4- Good- Internal Rotation 4- Good- Left Flexion 4- Good- Extension 3+ Fair+ Abduction (C5) 3+ Fair+ External Rotation 3+ Fair+ Internal Rotation 3+ Fair+ PT-OP-Q Treatments Start: 07/16/20 08:10 Freq: Status: Active Protocol: Document 09/27/20 11:13 (Rec: 09/27/20 12:04 [id number]) Cardio Equipment Upper Body Ergometer (UBE) Duration (Minutes) 6 RPM 65 Seat Position 9 Height 2.5 Other f/b 1 min each, stopped at 5 min , no irritation Therapeutic Exercises Prone Exercises stirpot Equipment Used on green therapy ball Reps/Minutes 5 sec x 5 Prone I, Y,T Side bilateral Equipment Used on green therapy ball Reps/Minutes 10 x2 Sitting Exercises OH roger Sitting Exercise Name flexion, abd , extension, behind back Side bilateral Reps/Minutes 5 mins Standing Exercises shoulder extension stretch Side bilateral Equipment Used with level 5 band Comments for HEP shoulder abd Side bilateral Equipment Used 1-2 lbs DB Comments for HEP theraband pull apart Side bilateral Equipment Used level 1 band Reps/Minutes 10 x 2 Comments for HEP Manual Therapy Treatment Soft Tissue Mobilization upper trap Mobilization Type Sustained Pressure,Trigger Point Release Intensity/Depth Moderate Body Position Standing PT-OP-T Assessment and Plan Start: 07/16/20 08:10 Freq: Status: Active Protocol: Document 09/27/20 11:13 (Rec: 09/27/20 12:04 [id number]) Physical Therapy Assessment Goals sleep Impairment pt currently is unable to sleep on her side d/t pain Nursing Home Goal (LTG) pt will be able to sleep either her L/R side with no complaints of discomfort. 08/22-can sleep on R but L side will wake her up after a while-much improved LTG Duration 12 weeks neuro-sign Impairment reports of tingling and numbness down her pinky fingers Airplane Fueler Goal (LTG) pt will not have tingling/ numbness down to her pinky fingers by improving her neural sensitivity. 08/22-signfiicantly improved - onlhy occ w/certain movements LTG Duration 12 weeks ROM Impairment pt lacks of ROM in all different anatomical planes Short Term Goal (STG) pt will gain > 10 degrees of ROM in all different planes to improve her mobility 08/22-achieved for all motions except IR & flex 09/02/20: Pre tx- FF: 126*, ABD: 123*, IR: L3 Post tx: FF 139*, ABD:115* IR: L5 STG Duration 6 weeks Nursing Home Goal (LTG) pt will gain > 15 degrees of ROM in all different planes so she can reach the second level of the shelf for cups/ glassess LTG Duration 12 weeks Quickdash Impairment pt scores 31.81 on 1/5 Short Term Goal (STG) pt will score lower than 25 on quickdash to improver her overall shoulder functionality STG Duration goal met to 25 Nursing Home Goal (LTG) pt will score lower than 20 on Quickdash to improve her pain , mobility and strength so she can return to skiiing. LTG Duration 12 weeks Assessment Summary Assessment pt cont to have full AROM on flexoin and abduction and strength at 4+/5. reaching behind her back cont to be difficulty but tend to get better after bicep stretch. Pt will be gone for road trip for 2 weeks. Will reassess next visit. Physical Therapy Plan Frequency and Duration Frequency of Treatment 1x/Week Duration of Treatment 8 weeks Plan of Care Start Date 07/16/19 Plan of Care End Date 10/14/20 Next Visit Focus/Plan Next Note Type Treatment Note Next Visit Plan Assess last tx: manual including patridge protocol, stretching. Next tx assess currrent ROM for progress making. Cont per PT POC: to work on scapular stability & overhead mobility, pt may benefit from AC & GH joint mobs and 1st rib mob on L side
--- NOTE | 2020-10-18 11:45 | PT.OPDS ---
Current Diagnoses Enthesopathy, unspecified (10/18/20) Visit Care Team Role Provider Type Neema Mac PA-C Attending Provider Non-Staff Family Provider Primary Care Provider Referring Provider Specialty: Internal Medicine Address: [address] [place], [address] Email: Visit Number Visit Number Discharge Summary PT-OP-B Current Condition Start: 07/16/20 08:10 Freq: Status: Active Protocol: Document 07/16/20 15:42 HH (Rec: 07/16/20 16:15 HH [email or web address]) Current Condition History of Current Condition Onset Date a year ago Current Complaints Bilateral shoulder pain L>R, unable to reach overhead and her back History of Current Condition This is a 64 yo female here for worsening bilateral shoulder pain, L slightly worse than R. She stated she has been having shoulder pain for many years but it has been getting significantly worse since a year ago but she does not know why. Her pain is 3/10 normally. She can not lift her arms over 90 abduction and needs to external rotate her arm to reach overhead but with pain. She is unable to reach for her 2nd level of the shelf for cups and glasses. Her pain also keeps her awake at night who is unable to sleep on her side now. She also difficulty fernando/ doff her bra and shirts d/t limited mobility and pain. She does have shooting pain/ numbness down his elbow and pinky finger occasionally. Pt loves skiing and would like to return to this hobby once COVID pandemic is over. Prior Treatments and Tests X-ray R d 06/14/20 IMPRESSION: Right shoulder joint degeneration. If the patient's pain or other symptoms persist, consider further evaluation with MRI X-ray L d 06/14/20 IMPRESSION: Moderate left shoulder joint degeneration. If the patient's pain or other symptoms persist, consider further evaluation with MRI Treatment Goals Patient/Caregiver Goals 1. to regain her shoulder mobility so she can reach overhead 2. to regain her shoulder strength so she can return to skiing PT-OP-C Subjective Start: 07/16/20 08:10 Freq: Status: Active Protocol: Document 10/18/20 11:17 HH (Rec: 10/18/20 11:44 HH [id number]) OP-PT Subjective Patient Comments Patient Comments Pt came in and stated that she has been progressing well with improved ROM and strength . Requested to be DC d/t good progress. Patient Reported Progress Improving PT-OP-E Functional Tests Start: 07/16/20 08:10 Freq: Status: Active Protocol: Document 07/16/20 15:42 HH (Rec: 07/16/20 16:15 [email or web address]) Functional Tests Apley's Scratch Test Action 1- Left pain at AC joint region Action 1- Right WFL, no pain Action 2- Left L upper trap d/t pain Action 2- Right T2 Action 3- Left L SIJ Action 3- Right R SIJ PT-OP-F Manual Assessment Start: 07/16/20 08:10 Freq: Status: Active Protocol: Document 07/16/20 15:42 (Rec: 07/16/20 16:15 [email or web address]) Manual Assessments Soft Tissue Assessment Soft Tissue Mobility Assessment tenderness noted with mod pressure at infraspinatus and teres minor bilaterally PT-OP-K Range of Motion Start: 07/16/20 08:10 Freq: Status: Active Protocol: Document 08/22/20 15:15 [facility] (Rec: 08/22/20 16:29 [facility] [id number]) Shoulder Goniometric Range of Motion Shoulder Right Active Shoulder ROM WFL No Testing Position Sitting Flexion 137 Extension 50 Abduction 121 External Rotation at 90 degrees 74 Abduction Internal Rotation 40 Left Active Shoulder ROM WFL No Testing Position Standing Flexion 140 Extension 55 Abduction 110 External Rotation at 90 degrees 64 Abduction Internal Rotation 36 Comments IR measured at 90 deg abd PT-OP-L Special Tests Start: 07/16/20 08:10 Freq: Status: Active Protocol: Document 07/16/20 15:42 (Rec: 07/16/20 16:15 [email or web address]) Special Tests Cervical Spine Special Tests Spurling's Test Test Results +VE B Comments R> L, tingling sensation at 5th digit Shoulder Special Tests Drop Arm Rotator Cuff Test Results -ve Empty Can Test Results -ve Neer Impingement Test Results +VE L PT-OP-M Strength Start: 07/16/20 08:10 Freq: Status: Active Protocol: Document 07/16/20 15:42 (Rec: 07/16/20 16:15 [email or web address]) Shoulder Strength Shoulder Manual Muscle Testing Right Flexion 4- Good- Extension 3+ Fair+ Abduction (C5) 3+ Fair+ Adduction 4- Good- External Rotation 4- Good- Internal Rotation 4- Good- Left Flexion 4- Good- Extension 3+ Fair+ Abduction (C5) 3+ Fair+ External Rotation 3+ Fair+ Internal Rotation 3+ Fair+ PT-OP-T Assessment and Plan Start: 07/16/20 08:10 Freq: Status: Active Protocol: Document 10/18/20 11:17 (Rec: 10/18/20 11:44 [id number]) Physical Therapy Assessment Goals sleep Impairment pt currently is unable to sleep on her side d/t pain Alf Goal (LTG) 10/18 goal met pt is able to sleep either her L/R side with no complaints of discomfort. 08/22-can sleep on R but L side will wake her up after a while-much improved LTG Duration 12 weeks neuro-sign Impairment reports of tingling and numbness down her pinky fingers Alf Goal (LTG) 10/18 partially met pt only has ocaasional tingling/ numbness down to her pinky fingers by improving her neural sensitivity. 08/22-signfiicantly improved - onlhy occ w/certain movements LTG Duration 12 weeks ROM Impairment pt lacks of ROM in all different anatomical planes Short Term Goal (STG) pt will gain > 10 degrees of ROM in all different planes to improve her mobility 08/22-achieved for all motions except IR & flex 09/02/20: Pre tx- FF: 126*, ABD: 123*, IR: L3 Post tx: FF 139*, ABD:115* IR: L5 STG Duration 6 weeks Learning And Development Assistant Goal (LTG) 10/18 goal met pt regain full ROM in all planes LTG Duration 12 weeks Quickdash Impairment pt scores 31.81 on 1/5 Short Term Goal (STG) pt will score lower than 25 on quickdash to improver her overall shoulder functionality STG Duration goal met to 25 Learning And Development Assistant Goal (LTG) pt will score lower than 20 on Quickdash to improve her pain , mobility and strength [facility] LTG Duration 12 weeks Assessment Summary Assessment Pt was last seen 3 weeks ago and she has been prgressing well and returned to baseline for ROM and strength. Requested to be DC today. Physical Therapy Plan Frequency and Duration Frequency of Treatment 1x/Week Duration of Treatment 8 weeks Plan of Care Start Date 07/16/19 Plan of Care End Date 10/14/20 Discharge Physical Therapy Discharge Reasons Goals Met Next Visit Focus/Plan Next Note Type Treatment Note Next Visit Plan Assess last tx: manual including patridge protocol, stretching. Next tx assess currrent ROM for progress making. Cont per PT POC: to work on scapular stability & overhead mobility, pt may benefit from AC & GH joint mobs and 1st rib mob on L side
== END 2020-10-22 08:53 | disposition home or self-care (01) ==
LOC: PHYS 11:15
PROVIDERS: Family Provider Physician Assistant; PCP Physician Assistant; Referring Provider Physician Assistant; Visit Provider Physician Assistant
DX: M77.9 Enthesopathy, unspecified (principal)
CPT/HCPCS: 97110; 97140; 97161

== ENCOUNTER → 2022-12-12 10:30 | Outpatient (CLI) | payer MEDICARE, OTHER, SELFPAY | PROVIDERS: Family Provider Physician Assistant; PCP Physician Assistant; Referring Provider Physician Assistant; Visit Provider Physician Assistant | DX: R19.7 Diarrhea, unspecified (principal) | CPT/HCPCS: 87045; 87046; 87177; 87329; 87899 ==

== ENCOUNTER → 2024-08-10 08:28 | Outpatient (CLI) | payer MEDICARE, OTHER, SELFPAY ==
--- NOTE | 2024-08-10 | DI.US.S_ITS ---
PROCEDURE: US ABDOMEN LIMITED INDICATIONS: Right upper quadrant pain TECHNIQUE: Real-time scanning was performed of the abdominal and retroperitoneal organs, with image documentation. COMPARISON: None. FINDINGS: Liver: Increased liver echogenicity, likely mild hepatic steatosis. Gallbladder: No gallstones. No wall thickening. No pericholecystic edema. Negative sonographic Palacios's sign. Biliary ducts: Intrahepatic bile ducts are non-dilated. Extrahepatic bile duct caliber measures 4 mm. Normal is 6-7 mm or less in diameter, or 10 mm or less post-cholecystectomy. Pancreas: Visualized portions of the pancreas are sonographically normal. Miscellaneous: No free abdominal fluid. IMPRESSION: Increased liver echogenicity, likely mild hepatic steatosis. No gallbladder pathology. Dictated by: Adam Talley M.D. on 08/10/2024 at 15:55 Approved by: Adam Talley M.D. on 08/10/2024 at 15:56
== END ==
PROVIDERS: Family Provider Physician Assistant; PCP Physician Assistant; Referring Provider Family Medicine; Visit Provider Family Medicine
DX: R10.11 Right upper quadrant pain (principal)
CPT/HCPCS: 76705

== ENCOUNTER 2024-12-30 07:33 | Emergency (ER) | payer MEDICARE, OTHER, SELFPAY ==
[2024-12-30] VITALS (7 sets, daily range): BP systolic 148–165; BP diastolic 65–95; PULSE 79–108; RESP 16–20; TEMP 36.8–37.2; O2SAT 92–99; BMI 30.7
--- NOTE | 2024-12-30 07:44 | ED.ABDPAIN ---
HPI - Abdominal Pain General Chief Complaint: Abdominal Pain Stated Complaint: [facility] ref: Intense lower LT side abdom pain Time Seen by Provider: 12/30/24 07:41 History of Present Illness HPI narrative: 69-year-old lady history of GERD, oophorectomy, presents with left lower quadrant pain despite taking Tylenol increased hydration and Dulcolax for presumed constipation as she has only had a pebble size feces since Wednesday. Patient denies nausea, vomiting, diarrhea, urinary complaints, vaginal discharge, back pain, fever, chills, bodyaches, or trauma to the area. Nothing makes it better or worse. Other than what is stated 14 point review of system is negative. Related Data Previous Rx's ?Medication ?Instructions ?Recorded ciprofloxacin HCl 500 mg tablet 500 mg PO Q12H #14 tabs 12/30/24 hydrocodone 5 mg-acetaminophen 325 1 tab PO Q4-6H PRN pain #20 tabs 12/30/24 mg tablet metronidazole 500 mg tablet 500 mg PO Q8H #21 tabs 12/30/24 Allergies Allergy/AdvReac Type Severity Reaction Status Date / Time No Known Drug Allergies Allergy Unverified 12/12/22 10:14 Review of Systems Review of Systems ROS Unobtainable: All systems reviewed & are unremarkable except as noted in HPI and below Exam Narrative Exam Narrative: GENERAL: [69] year old patient appears stated age. Well-developed patient, in mild distress. HEAD: Atraumatic. Normocephalic. EYES: Pupils equal round and reactive. Extraocular motions intact. No scleral icterus. No injection or drainage. ENT: Nose without bleeding, purulent drainage. Throat without erythema, tonsillar hypertrophy or exudate. Airway patent. NECK: Trachea midline. Non tender CARDIOVASCULAR: Regular rate and rhythm without murmurs, gallops, or rubs. RESPIRATORY: Clear to auscultation. Breath sounds equal bilaterally. No wheezes, rales, or rhonchi. GASTROINTESTINAL: Abdomen soft, LLQ no r/r/g, nondistended. EXTREMITIES: No edema or joint tenderness. BACK: Nontender without deformity or crepitance. No flank tenderness. NEURO: AOx3. SKIN: No rash or erythema of visible areas MDM - Abdominal Pain Imaging Data CT scan - abdomen/pelvis: Radiologist's Impression: [address] [address] [address] Scan Report Signed Patient: Mis Grubbs MR#: [id number] : 1955 Acct:[id number] Age/Sex: 69 / F Date of Service: 12/30/24 Loc: ED Accession Number: [id number] Procedure: CT abdomen pelvis w con Ordering Provider: Laith Farias D.O. PROCEDURE: CT ABDOMEN PELVIS W CON INDICATIONS: LLQ pain TECHNIQUE: After the administration of intravenous contrast, axial sections acquired from the lung bases to the pubic symphysis. Coronal and sagittal reformats were performed. For radiation dose reduction, the following was used: automated exposure control, adjustment of mA and/or kV according to patient size. COMPARISON: None. FINDINGS: Image quality: Diagnostic. Lower Chest: No significant findings. ABDOMEN: Liver: No solid mass. Gallbladder: No radiopaque gallstones or wall thickening. Biliary ducts: No biliary dilation. Pancreas: No ductal dilation. Spleen: Size is within normal limits. Adrenal Glands: No adrenal nodules. Kidneys and Ureters: No hydronephrosis. No solid mass. No complex renal cystic lesion which requires follow up. Stomach and Bowel: Normal colonic caliber, without significant wall thickening. Normal caliber appendix in in the right lower quadrant. Mild focal inflammation adjacent to distal sigmoid colon diverticula. Peritoneum: No abnormal intraperitoneal fluid. No free air. Ventral Wall: No significant ventral hernia. Abdominal Nodes: No retroperitoneal or mesenteric adenopathy by size criteria. Vessels: Aorta and inferior vena cava are normal in size. PELVIS: Pelvic Organs: Unremarkable. Trace fluid seen within the right adnexal region. Bladder: No bladder wall thickening, accounting for underdistention. Pelvic Nodes: No enlarged lymph nodes. Miscellaneous: No inguinal hernias are seen. Bones: No aggressive osseous abnormality. IMPRESSION: Focal inflammation adjacent to distal sigmoid colon and diverticula most consistent with early/mild acute uncomplicated diverticulitis. Trace fluid seen in the right adnexal region of uncertain etiology. Consider further evaluation with pelvic ultrasound if clinically appropriate. Approved by: Claudia Patel M.D.,Ph.D. on 12/30/2024 at 9:21 MDM Narrative Medical decision making narrative: All lab work, vital signs, nurse triage note, medication list, previous ER visits and all imaging studies reviewed. CT scan abdomen and pelvis showed focal inflammation adjacent to distal sigmoid colon and diverticula most consistent with early mild acute uncomplicated diverticulitis. Patient given fluids Toradol Cipro Flagyl here. Patient will be discharged on Cipro Flagyl and Piseco. Clear liquid diet advance as tolerated. Return with new or worsening symptoms. Differential diagnosis includes pancreatitis diverticulitis small-bowel obstruction constipation UTI. Discharge Plan Departure Patient Disposition: Home Clinical Impression: Diverticulitis Instructions: DI for Diverticulitis Activity Restrictions/Additional Instructions: Return with new or worsening symptoms. Clear liquid diet advance as tolerated. Take your medicines as directed. Follow up with PCP in 1-2 weeks if no improvement in symptoms. Prescriptions: New ciprofloxacin HCl 500 mg tablet 500 mg PO Q12H Qty: 14 0RF hydrocodone-acetaminophen 5-325 mg tablet 1 tab PO Q4-6H PRN (Reason: pain) Qty: 20 0RF metronidazole 500 mg tablet 500 mg PO Q8H Qty: 21 0RF Referrals: Neema Mac PA-C [Primary Care Provider, Internal Medicine] Stand Alone Forms: Patient Portal/API
--- NOTE | 2024-12-30 07:53 | DI.CT.S_ITS ---
PROCEDURE: CT ABDOMEN PELVIS W CON INDICATIONS: LLQ pain TECHNIQUE: After the administration of intravenous contrast, axial sections acquired from the lung bases to the pubic symphysis. Coronal and sagittal reformats were performed. For radiation dose reduction, the following was used: automated exposure control, adjustment of mA and/or kV according to patient size. COMPARISON: None. FINDINGS: Image quality: Diagnostic. Lower Chest: No significant findings. ABDOMEN: Liver: No solid mass. Gallbladder: No radiopaque gallstones or wall thickening. Biliary ducts: No biliary dilation. Pancreas: No ductal dilation. Spleen: Size is within normal limits. Adrenal Glands: No adrenal nodules. Kidneys and Ureters: No hydronephrosis. No solid mass. No complex renal cystic lesion which requires follow up. Stomach and Bowel: Normal colonic caliber, without significant wall thickening. Normal caliber appendix in in the right lower quadrant. Mild focal inflammation adjacent to distal sigmoid colon diverticula. Peritoneum: No abnormal intraperitoneal fluid. No free air. Ventral Wall: No significant ventral hernia. Abdominal Nodes: No retroperitoneal or mesenteric adenopathy by size criteria. Vessels: Aorta and inferior vena cava are normal in size. PELVIS: Pelvic Organs: Unremarkable. Trace fluid seen within the right adnexal region. Bladder: No bladder wall thickening, accounting for underdistention. Pelvic Nodes: No enlarged lymph nodes. Miscellaneous: No inguinal hernias are seen. Bones: No aggressive osseous abnormality. IMPRESSION: Focal inflammation adjacent to distal sigmoid colon and diverticula most consistent with early/mild acute uncomplicated diverticulitis. Trace fluid seen in the right adnexal region of uncertain etiology. Consider further evaluation with pelvic ultrasound if clinically appropriate. Approved by: Claudia Patel M.D.,Ph.D. on 12/30/2024 at 9:21
[2024-12-30 08:13] LABS: Add Manual Diff / Slide Review NO; Basophils Absolute Auto 0 /uL (0-100); Basophils Percent Auto 0.5 % (0-2); Eosinophils Absolute Auto 100 /uL (0-450); Eosinophils Percent Auto 2.1 % (2-4); Hematocrit 39.1 % (36-46); Hemoglobin 13.2 g/dL (12.0-16.0); Lymphocytes Absolute Auto 1200 /uL (1100-4500); Lymphocytes Percent Auto 18.4 % (25-40); Mean Corpuscular HGB Conc 33.9 % (30-36); Mean Corpuscular Volume 88.6 fL (80-100); Monocytes Absolute Auto 400 /uL (0-900); Monocytes Percent Auto 6.1 % (3-14); Neutrophils Absolute Auto 4700 /uL (1500-7000); Neutrophils Percent Auto 72.9 % (50-75); Platelet Count 222 X10^3/uL (150-400); Red Blood Cell Count 4.41 X10^6/uL (4.0-5.2); Red Cell Distribution Width 13.7 % (11.6-14.8); White Blood Cell Count 6.5 X10^3/uL (4.5-11.0)
[2024-12-30 08:24] LABS: Alanine Aminotransferase 24 IU/L (<35); Albumin 4.2 g/dL (3.5-5.0); Albumin Globulin Ratio 1.6 (1.0-2.8); Alkaline Phosphatase 81 U/L (38-126); Aspartate Aminotransferase 25 IU/L (14-36); BUN Creatinine Ratio 16.4 (6-22); Blood Urea Nitrogen 11 mg/dL (7-17); Carbon Dioxide 27 mmol/L (22-32); Chloride 103 mmol/L (98-107); Estimated Glomerular Filt Rate > 60 mL/min (>60); Globulin 2.6 g/dL (1.7-4.1); Glucose 103 mg/dL (70-99); HEMOLYSIS < 15 (0-50); Lipase 39 U/L (23-300); Potassium 3.7 mmol/L (3.4-5.1); Sodium 138 mmol/L (137-145); Total Protein 6.8 g/dL (6.3-8.2)
[2024-12-30] MEDS: KETOROLAC 30 MG/ML VIAL 15 MG IV (08:38)
[2024-12-30] MEDS: LACTATED RINGERS 500 ML 1000 ML IV (08:40)
[2024-12-30] MEDS: metroNIDAZOLE 500 MG TABLET PO (09:31)
[2024-12-30] MEDS: CIPROFLOXACIN 250 MG TABLET 500 MG PO (09:31)
== END 2024-12-30 09:56 | disposition home or self-care (01) ==
PROVIDERS: Emergency Provider Family Medicine; Family Provider Physician Assistant; PCP Physician Assistant
DX: K57.32 Diverticulitis of large intestine without perforation or abscess without bleeding (principal)
CPT/HCPCS: 36415; 74177; 80053; 81003; 83690; 85025; 96361; 96374; 99284; J1885; Q9967

== ENCOUNTER 2025-03-28 09:45 | Outpatient (RCR) | payer MEDICARE, OTHER, SELFPAY ==
--- NOTE | 2025-01-03 20:55 | PT.OIE ---
Current Diagnoses Lumbago with sciatica, right side (01/03/25) Lumbago with sciatica, left side (01/03/25) Visit Care Team Role Provider Type Neema Mac PA-C Attending Provider Non-Staff Family Provider Primary Care Provider Referring Provider Specialty: Internal Medicine Address: [address] [place] [address], [id number] Email: Physical Therapy Initial Evaluation PT-OP-A Visit Information Start: 01/03/25 07:34 Freq: Status: Active Protocol: Document 01/03/25 07:35 SECURITY CONTROL ASSESSOR (Rec: 01/04/25 20:33 SECURITY CONTROL ASSESSOR Laptop) Out-Patient Physical Therapy Visit Information Visit Information Visit Type Initial Evaluation Visit Start Time 07:35 Visit Stop Time 08:23 Visit Number 1 Number of MEDICINE AND HEALTH SERVICE MANAGER Visits 0 Evaluation Information Evaluation Date 01/03/25 PT-OP-B Current Condition Start: 01/03/25 07:34 Freq: Status: Active Protocol: Document 01/03/25 07:35 SECURITY CONTROL ASSESSOR (Rec: 01/03/25 08:23 SECURITY CONTROL ASSESSOR Laptop) Current Condition History of Current Condition Onset Date 3-4 years ago Current Complaints tail bone pain, B low back pain with radiation down BLEs to feet L>R History of Current Pt was getting out of a low car and had a zing of pain Condition at tail bone ~15s and didn't have again for months, never slowed her down and could not figure out what initiated it. Every once in a while would continue to have short lasting zing but got worse. Had PT for it a few years ago and it helped and was able to go back to active lifestyle and skiing. Has since came back and is now really intense/a lot worse. Tail bone always aches now, pain is burning across B low back. Pain shoots down BLEs to feet, LLE seems to be worse than RLE, BLEs feel weak, LLE has constant tingling now. Pt reports this has not affected her balance, exacerbated by going up stairs and squatting down to plant kumar, feels like she must urinate, has never lost control of bowel or bladder but feels like she must clench to make it to the bathroom after the episode and feels weakness when bearing down to eliminate bowels. When it happens she must stand still, lasts no more than 2 mins. Saw an orthopedist ~3 years ago and had an MRI done which revealed compression at L3-L4 nerve root. Referral also notes history of 2 coccyx fractures, one when a teenager and second was during childbirth. Tailbone aches when sitting for too long. Standing for a little bit seems to reduce the pain and walking, but unable to reduce symptoms once they occur and just has to wait out the symptoms. Treatment Goals Patient/Caregiver To get rid of the pain. Goals PT-OP-C Subjective Start: 01/03/25 07:34 Freq: Status: Active Protocol: Document 01/03/25 07:35 SECURITY CONTROL ASSESSOR (Rec: 01/04/25 20:33 SECURITY CONTROL ASSESSOR Laptop) Patient Questionnaires Lower Extremity Functional Scale LEFS Score 56 PT-OP-D Balance Start: 01/03/25 07:34 Freq: Status: Active Protocol: Document 01/03/25 07:35 SECURITY CONTROL ASSESSOR (Rec: 01/03/25 08:23 SECURITY CONTROL ASSESSOR Laptop) Balance Tests Single Limb Standing Single Limb- Right 20s with significant trunk sway and BUEs out to side Single Limb- Left 6s with significant trunk sway and BUEs out to side PT-OP-F Manual Assessment Start: 01/03/25 07:34 Freq: Status: Active Protocol: Document 01/03/25 07:35 SECURITY CONTROL ASSESSOR (Rec: 01/04/25 20:33 SECURITY CONTROL ASSESSOR Laptop) Manual Assessments Other Manual Assessments Other Manual decreased tissue mobility and TTP at L glute med, Assessments piriformis, and lumbar paraspinals PT-OP-K Range of Motion Start: 01/03/25 07:34 Freq: Status: Active Protocol: Document 01/03/25 07:35 SECURITY CONTROL ASSESSOR (Rec: 01/03/25 08:23 SECURITY CONTROL ASSESSOR Laptop) Hip Goniometric Range of Motion Hip ROM Limitations Comments Heel to butt: R 13, L 15.5 IR: R 37 degrees, L 39 degrees ER: R 35 degrees, L 19 degrees PT-OP-M Strength Start: 01/03/25 07:34 Freq: Status: Active Protocol: Document 01/03/25 07:35 SECURITY CONTROL ASSESSOR (Rec: 01/03/25 08:23 SECURITY CONTROL ASSESSOR Laptop) Hip Strength Hip Manual Muscle Testing L Flexion (L2) 4 Good Extension (S1) 2+ Poor+ Abduction 4 Good External Rotation 4- Good- Internal Rotation 4 Good Comments pain in coccyx with hip flex and ext R Flexion (L2) 5 Normal Extension (S1) 3- Fair- Abduction 4+ Good+ External Rotation 4+ Good+ Internal Rotation 5 Normal Knee Strength Knee Manual Muscle Testing L Flexion (S2) 4 Good Extension (L3) 4+ Good+ R Flexion (S2) 5 Normal Extension (L3) 5 Normal Ankle/Foot Strength Ankle and Foot Manual Muscle Testing L Dorsiflexion (L4) 4 Good Comments Able to perform B standing heel lifts x10 evenly, single leg lifts with difficulty initiating and difficulty after 2-3, onset of symptoms down LLE lasting <5s R Dorsiflexion (L4) 5 Normal Comments Able to perform B standing heel lifts x10 evenly, single leg lifts x5 without difficulty PT-OP-Q Treatments Start: 01/03/25 07:34 Freq: Status: Active Protocol: Document 01/03/25 07:35 SECURITY CONTROL ASSESSOR (Rec: 01/04/25 20:33 SECURITY CONTROL ASSESSOR Laptop) Therapeutic Exercises Supine Exercises Glute stretch Supine Exercise Name Gentle glute max and glute med stretch, slight increased pain Side left Reps/Minutes 30s each Piriformis stretch Supine Exercise Name Attempted figure 4 stretch and modified figure 4 stretch, increased pain Side left Prone Exercises Prone progression Prone Exercise Name Prone on elbows improves pain, attempted prone on hands with increased pain Reps/Minutes 30s Comments Added to HEP without handout, instructed to do a few mins 2-3x/day PT-OP-T Assessment and Plan Start: 01/03/25 07:34 Freq: Status: Active Protocol: Document 01/03/25 07:35 SECURITY CONTROL ASSESSOR (Rec: 01/04/25 20:33 SECURITY CONTROL ASSESSOR Laptop) Physical Therapy Assessment Rehab Potential Rehabilitation Good Potential Evaluation Complexity Number of Personal 1-2 Factors/ Comorbidities Number of Body 3 Systems Impaired Clinical Stable Presentation at Evaluation Impairments Impairments Activity Tolerance,Balance,Functional Activities, Functional Mobility,Pain,ROM,Soft Tissue Mobility, Strength Goals 4 Impairment Strength Impairment B hip extensor strength in prone, on eval L 2+, R 3- Senior Care Goal (LTG) Pt will improve B hip extensor strength to at least 4-/ 5 in order to improve pain and function. LTG Duration 12 weeks 3 Impairment ROM Impairment L hip passive ER 19 degrees, R ER 35 degrees on eval Short Term Goal (STG Pt will improve L hip passive ROM to 35 degrees in ) prone in order to improve pain in L hip and function. STG Duration 6 weeks 2 Impairment Balance Impairment SLS on eval: RLE 20s with significant trunk sway and BUEs out to side, even surface LLE 6s with significant trunk sway and BUEs out to side , even surface Short Term Goal (STG Pt will improve balance via LLE SLS to 20s with BUEs to ) sides on even surface to improve safety and function. STG Duration 6 weeks Senior Care Goal (LTG) Pt will improve balance via B SLS to 30s on uneven surface to improve safety and function. LTG Duration 12 weeks 1 Impairment LEFS Impairment Score on eval: 56/80 [employer] Goal (LTG) Pt will improve LEFS score to at least 70/80 to improve overall functional mobility LTG Duration 12 weeks Assessment Summary Assessment Pt presents L3-L4 nerve root compression with B low back pain with radiation down BLEs L greater than R, B hip weakness especially with hip extensors L weaker than R, decreased soft tissue mobility to B glutes, piriformis, and lumbar paraspinals L>R, decreased muscle flexibility of B hips L greater than R, and decreased balance via SLS. Pt finds flexion based activities exacerbate pain and extension based activities reduce pain. Pt will highly benefit from skilled PT intervention to address deficits and meets goals to improve safety and functional mobility. Physical Therapy Plan Frequency and Duration Frequency of 2x/Week Treatment Duration of 12 treatment (weeks) Plan of Care Start 01/03/25 Date Plan of Care End 03/28/25 Date Therapeutic Interventions Therapeutic Balance Training,Gait Training,Home Exercise Program, Interventions Joint Mobilizations,Manual Therapy,Neuromuscular Re- education,Soft Tissue Mobilization,Taping,Therapeutic Activities,Therapeutic Exercises Modalities Cold Pack/Ice Massage,Electric Stimulation,Hot Packs, Iontophoresis,Ultrasound Next Visit Focus/Plan Next Note Type Treatment Note Next Visit Plan BLE stretch and strength HEP including heel/toe raises and B hip ext, STM to B piriformis, assess BLE 90/90 test, and hip flexor length
--- NOTE | 2025-01-10 12:35 | PT.OTN ---
Current Diagnoses Lumbago with sciatica, right side (01/10/25) Lumbago with sciatica, left side (01/10/25) Physical Therapy Treatment Note PT-OP-A Visit Information Start: 01/03/25 07:34 Freq: Status: Active Protocol: Document 01/10/25 07:40 PUNCH OUT CREW MEMBER (Rec: 01/10/25 07:47 PUNCH OUT CREW MEMBER Laptop) Out-Patient Physical Therapy Visit Information Visit Information Visit Type Treatment Note Visit Start Time 08:16 Visit Stop Time 09:05 Visit Number 2 Number of MEDICAL SAFETY DIRECTOR Visits 0 Evaluation Information Evaluation Date 01/03/25 PT-OP-B Current Condition Start: 01/03/25 07:34 Freq: Status: Active Protocol: Document 01/03/25 07:35 P[employer]CH OUT CREW MEMBER (Rec: 01/03/25 08:23 PUNCH OUT CREW MEMBER Laptop) Current Condition History of Current Condition Onset Date 3-4 years ago Current Complaints tail bone pain, B low back pain with radiation down BLEs to feet L>R History of Current Pt was getting out of a low car and had a zing of pain Condition at tail bone ~15s and didn't have again for months, never slowed her down and could not figure out what initiated it. Every once in a while would continue to have short lasting zing but got worse. Had PT for it a few years ago and it helped and was able to go back to active lifestyle and skiing. Has since came back and is now really intense/a lot worse. Tail bone always aches now, pain is burning across B low back. Pain shoots down BLEs to feet, LLE seems to be worse than RLE, BLEs feel weak, LLE has constant tingling now. Pt reports this has not affected her balance, exacerbated by going up stairs and squatting down to plant kumar, feels like she must urinate, has never lost control of bowel or bladder but feels like she must clench to make it to the bathroom after the episode and feels weakness when bearing down to eliminate bowels. When it happens she must stand still, lasts no more than 2 mins. Saw an orthopedist ~3 years ago and had an MRI done which revealed compression at L3-L4 nerve root. Referral also notes history of 2 coccyx fractures, one when a teenager and second was during childbirth. Tailbone aches when sitting for too long. Standing for a little bit seems to reduce the pain and walking, but unable to reduce symptoms once they occur and just has to wait out the symptoms. Treatment Goals Patient/Caregiver To get rid of the pain. Goals PT-OP-C Subjective Start: 01/03/25 07:34 Freq: Status: Active Protocol: Document 01/10/25 07:40 P[employer]CH OUT CREW MEMBER (Rec: 01/10/25 07:47 PUNCH OUT CREW MEMBER Laptop) OP-PT Subjective Patient Comments Patient Comments Pt reports 2-3/10 pain to tail bone this morning without radiation of pain down legs. PT-OP-D Balance Start: 01/03/25 07:34 Freq: Status: Active Protocol: Document 01/03/25 07:35 P[employer]CH OUT CREW MEMBER (Rec: 01/03/25 08:23 PUNCH OUT CREW MEMBER Laptop) Balance Tests Single Limb Standing Single Limb- Right 20s with significant trunk sway and BUEs out to side Single Limb- Left 6s with significant trunk sway and BUEs out to side PT-OP-F Manual Assessment Start: 01/03/25 07:34 Freq: Status: Active Protocol: Document 01/03/25 07:35 PUNCH OUT CREW MEMBER (Rec: 01/04/25 20:33 PUNCH OUT CREW MEMBER Laptop) Manual Assessments Other Manual Assessments Other Manual decreased tissue mobility and TTP at L glute med, Assessments piriformis, and lumbar paraspinals PT-OP-K Range of Motion Start: 01/03/25 07:34 Freq: Status: Active Protocol: Document 01/03/25 07:35 P[employer]CH OUT CREW MEMBER (Rec: 01/03/25 08:23 PUNCH OUT CREW MEMBER Laptop) Hip Goniometric Range of Motion Hip ROM Limitations Comments Heel to butt: R 13, L 15.5 IR: R 37 degrees, L 39 degrees ER: R 35 degrees, L 19 degrees PT-OP-M Strength Start: 01/03/25 07:34 Freq: Status: Active Protocol: Document 01/03/25 07:35 PUNCH OUT CREW MEMBER (Rec: 01/03/25 08:23 PUNCH OUT CREW MEMBER Laptop) Hip Strength Hip Manual Muscle Testing L Flexion (L2) 4 Good Extension (S1) 2+ Poor+ Abduction 4 Good External Rotation 4- Good- Internal Rotation 4 Good Comments pain in coccyx with hip flex and ext R Flexion (L2) 5 Normal Extension (S1) 3- Fair- Abduction 4+ Good+ External Rotation 4+ Good+ Internal Rotation 5 Normal Knee Strength Knee Manual Muscle Testing L Flexion (S2) 4 Good Extension (L3) 4+ Good+ R Flexion (S2) 5 Normal Extension (L3) 5 Normal Ankle/Foot Strength Ankle and Foot Manual Muscle Testing L Dorsiflexion (L4) 4 Good Comments Able to perform B standing heel lifts x10 evenly, single leg lifts with difficulty initiating and difficulty after 2-3, onset of symptoms down LLE lasting <5s R Dorsiflexion (L4) 5 Normal Comments Able to perform B standing heel lifts x10 evenly, single leg lifts x5 without difficulty PT-OP-Q Treatments Start: 01/03/25 07:34 Freq: Status: Active Protocol: Document 01/10/25 07:40 P[employer]CH OUT CREW MEMBER (Rec: 01/10/25 07:47 PUNCH OUT CREW MEMBER Laptop) Therapeutic Exercises Supine Exercises Hip Flexor stretch Supine Exercise Name off edge of bed Side bilateral Reps/Minutes 1 min each Comments Added to HEP with HO Sidelying Exercises ITB stretch Sidelying Exercise off edge of bed Name Side left Reps/Minutes 30s Comments Attempted but with > tightness in L hip flexor Standing Exercises Hip Ext Standing Exercise light UE support on HRs Name Side bilateral Reps/Minutes x5 each Comments VC to not lean forward, Added to HEP with HO Hip Abd Standing Exercise light UE support on HRs Name Side bilateral Reps/Minutes x5 each Comments VC for level pelvis, Added to HEP with HO Marching Standing Exercise Alt with light UE support on HRs Name Side bilateral Reps/Minutes x5 each Comments VC for level pelvis, Added to HEP with HO Heel/Toe raises Standing Exercise At stairs with HRs for support Name Side bilateral Reps/Minutes x10 each Comments Added to HEP with HO Gastroc stretch Standing Exercise runners stretch against wal Name Side bilateral Reps/Minutes 1 min each Comments VC for form, Added to HEP with HO HS stretch Standing Exercise at 6 stair with B HRs Name Side bilateral Reps/Minutes 1 min each Comments Added to HEP with HO Manual Therapy Treatment Consent Patient gave verbal Yes consent for manual treatment Soft Tissue Mobilization Piriformis Body Location L Mobilization Type Cross-Friction,Rolling,Trigger Point Release Intensity/Depth Moderate Body Position Prone Comments STM, SCS with L hip in slight ext, held for 90s passively with improvement of pain PT-OP-T Assessment and Plan Start: 01/03/25 07:34 Freq: Status: Active Protocol: Document 01/10/25 07:40 P[employer]CH OUT CREW MEMBER (Rec: 01/10/25 07:47 P[employer]CH OUT CREW MEMBER Laptop) Physical Therapy Assessment Impairments Impairments Activity Tolerance,Balance,Functional Activities, Functional Mobility,Pain,ROM,Soft Tissue Mobility, Strength Goals 4 Impairment Strength Impairment B hip extensor strength in prone, on eval L 2+, R 3- C Web Developer Goal (LTG) Pt will improve B hip extensor strength to at least 4-/ 5 in order to improve pain and function. LTG Duration 12 weeks 3 Impairment ROM Impairment L hip passive ER 19 degrees, R ER 35 degrees on eval Short Term Goal (STG Pt will improve L hip passive ROM to 35 degrees in ) prone in order to improve pain in L hip and function. STG Duration 6 weeks 2 Impairment Balance Impairment SLS on eval: RLE 20s with significant trunk sway and BUEs out to side, even surface LLE 6s with significant trunk sway and BUEs out to side , even surface Short Term Goal (STG Pt will improve balance via LLE SLS to 20s with BUEs to ) sides on even surface to improve safety and function. STG Duration 6 weeks C Web Developer Goal (LTG) Pt will improve balance via B SLS to 30s on uneven surface to improve safety and function. LTG Duration 12 weeks 1 Impairment LEFS Impairment Score on eval: 56/80 C Web Developer Goal (LTG) Pt will improve LEFS score to at least 70/80 to improve overall functional mobility LTG Duration 12 weeks Assessment Summary Assessment STM and SCS to L piriformis at beginning of session with successful decrease of tightness and pain. Pt tolerated all stretches and exercises well, HEP HO given, pt states she enjoys learning about the body and having a lot of exercises to work on at home. Physical Therapy Plan Frequency and Duration Frequency of 2x/Week Treatment Duration of 12 treatment (weeks) Plan of Care Start 01/03/25 Date Plan of Care End 03/28/25 Date Therapeutic Interventions Therapeutic Balance Training,Gait Training,Home Exercise Program, Interventions Joint Mobilizations,Manual Therapy,Neuromuscular Re- education,Soft Tissue Mobilization,Taping,Therapeutic Activities,Therapeutic Exercises Modalities Cold Pack/Ice Massage,Electric Stimulation,Hot Packs, Iontophoresis,Ultrasound Next Visit Focus/Plan Next Note Type Treatment Note Next Visit Plan Review HEP, prone B hip ext, modified SLS exercises
--- NOTE | 2025-01-10 12:39 | PT.OTN ---
Current Diagnoses Lumbago with sciatica, right side (01/10/25) Lumbago with sciatica, left side (01/10/25) Physical Therapy Treatment Note PT-OP-A Visit Information Start: 01/03/25 07:34 Freq: Status: Active Protocol: Document 01/10/25 07:40 FLOOR INSTALLATION MECHANIC (Rec: 01/10/25 07:47 FLOOR INSTALLATION MECHANIC Laptop) Out-Patient Physical Therapy Visit Information Visit Information Visit Type Treatment Note Visit Start Time 08:16 Visit Stop Time 09:05 Visit Number 2 Number of QA SOFTWARE TEST ENGINEER Visits 0 Evaluation Information Evaluation Date 01/03/25 PT-OP-B Current Condition Start: 01/03/25 07:34 Freq: Status: Active Protocol: Document 01/03/25 07:35 FLOOR INSTALLATION MECHANIC (Rec: 01/03/25 08:23 FLOOR INSTALLATION MECHANIC Laptop) Current Condition History of Current Condition Onset Date 3-4 years ago Current Complaints tail bone pain, B low back pain with radiation down BLEs to feet L>R History of Current Pt was getting out of a low car and had a zing of pain Condition at tail bone ~15s and didn't have again for months, never slowed her down and could not figure out what initiated it. Every once in a while would continue to have short lasting zing but got worse. Had PT for it a few years ago and it helped and was able to go back to active lifestyle and skiing. Has since came back and is now really intense/a lot worse. Tail bone always aches now, pain is burning across B low back. Pain shoots down BLEs to feet, LLE seems to be worse than RLE, BLEs feel weak, LLE has constant tingling now. Pt reports this has not affected her balance, exacerbated by going up stairs and squatting down to plant kumar, feels like she must urinate, has never lost control of bowel or bladder but feels like she must clench to make it to the bathroom after the episode and feels weakness when bearing down to eliminate bowels. When it happens she must stand still, lasts no more than 2 mins. Saw an orthopedist ~3 years ago and had an MRI done which revealed compression at L3-L4 nerve root. Referral also notes history of 2 coccyx fractures, one when a teenager and second was during childbirth. Tailbone aches when sitting for too long. Standing for a little bit seems to reduce the pain and walking, but unable to reduce symptoms once they occur and just has to wait out the symptoms. Treatment Goals Patient/Caregiver To get rid of the pain. Goals PT-OP-C Subjective Start: 01/03/25 07:34 Freq: Status: Active Protocol: Document 01/10/25 07:40 FLOOR INSTALLATION MECHANIC (Rec: 01/10/25 07:47 FLOOR INSTALLATION MECHANIC Laptop) OP-PT Subjective Patient Comments Patient Comments Pt reports 2-3/10 pain to tail bone this morning without radiation of pain down legs. PT-OP-D Balance Start: 01/03/25 07:34 Freq: Status: Active Protocol: Document 01/03/25 07:35 FLOOR INSTALLATION MECHANIC (Rec: 01/03/25 08:23 FLOOR INSTALLATION MECHANIC Laptop) Balance Tests Single Limb Standing Single Limb- Right 20s with significant trunk sway and BUEs out to side Single Limb- Left 6s with significant trunk sway and BUEs out to side PT-OP-F Manual Assessment Start: 01/03/25 07:34 Freq: Status: Active Protocol: Document 01/03/25 07:35 FLOOR INSTALLATION MECHANIC (Rec: 01/04/25 20:33 FLOOR INSTALLATION MECHANIC Laptop) Manual Assessments Other Manual Assessments Other Manual decreased tissue mobility and TTP at L glute med, Assessments piriformis, and lumbar paraspinals PT-OP-K Range of Motion Start: 01/03/25 07:34 Freq: Status: Active Protocol: Document 01/10/25 07:40 FLOOR INSTALLATION MECHANIC (Rec: 01/10/25 12:38 FLOOR INSTALLATION MECHANIC Laptop) Hip Goniometric Range of Motion Hip ROM Limitations Comments 90/90: R 148 degrees, L 149 degrees PT-OP-M Strength Start: 01/03/25 07:34 Freq: Status: Active Protocol: Document 01/03/25 07:35 FLOOR INSTALLATION MECHANIC (Rec: 01/03/25 08:23 FLOOR INSTALLATION MECHANIC Laptop) Hip Strength Hip Manual Muscle Testing L Flexion (L2) 4 Good Extension (S1) 2+ Poor+ Abduction 4 Good External Rotation 4- Good- Internal Rotation 4 Good Comments pain in coccyx with hip flex and ext R Flexion (L2) 5 Normal Extension (S1) 3- Fair- Abduction 4+ Good+ External Rotation 4+ Good+ Internal Rotation 5 Normal Knee Strength Knee Manual Muscle Testing L Flexion (S2) 4 Good Extension (L3) 4+ Good+ R Flexion (S2) 5 Normal Extension (L3) 5 Normal Ankle/Foot Strength Ankle and Foot Manual Muscle Testing L Dorsiflexion (L4) 4 Good Comments Able to perform B standing heel lifts x10 evenly, single leg lifts with difficulty initiating and difficulty after 2-3, onset of symptoms down LLE lasting <5s R Dorsiflexion (L4) 5 Normal Comments Able to perform B standing heel lifts x10 evenly, single leg lifts x5 without difficulty PT-OP-Q Treatments Start: 01/03/25 07:34 Freq: Status: Active Protocol: Document 01/10/25 07:40 FLOOR INSTALLATION MECHANIC (Rec: 01/10/25 07:47 FLOOR INSTALLATION MECHANIC Laptop) Therapeutic Exercises Supine Exercises Hip Flexor stretch Supine Exercise Name off edge of bed Side bilateral Reps/Minutes 1 min each Comments Added to HEP with HO Sidelying Exercises ITB stretch Sidelying Exercise off edge of bed Name Side left Reps/Minutes 30s Comments Attempted but with > tightness in L hip flexor Standing Exercises Hip Ext Standing Exercise light UE support on HRs Name Side bilateral Reps/Minutes x5 each Comments VC to not lean forward, Added to HEP with HO Hip Abd Standing Exercise light UE support on HRs Name Side bilateral Reps/Minutes x5 each Comments VC for level pelvis, Added to HEP with HO Marching Standing Exercise Alt with light UE support on HRs Name Side bilateral Reps/Minutes x5 each Comments VC for level pelvis, Added to HEP with HO Heel/Toe raises Standing Exercise At stairs with HRs for support Name Side bilateral Reps/Minutes x10 each Comments Added to HEP with HO Gastroc stretch Standing Exercise runners stretch against wal Name Side bilateral Reps/Minutes 1 min each Comments VC for form, Added to HEP with HO HS stretch Standing Exercise at 6 stair with B HRs Name Side bilateral Reps/Minutes 1 min each Comments Added to HEP with HO Manual Therapy Treatment Consent Patient gave verbal Yes consent for manual treatment Soft Tissue Mobilization Piriformis Body Location L Mobilization Type Cross-Friction,Rolling,Trigger Point Release Intensity/Depth Moderate Body Position Prone Comments STM, SCS with L hip in slight ext, held for 90s passively with improvement of pain PT-OP-T Assessment and Plan Start: 01/03/25 07:34 Freq: Status: Active Protocol: Document 01/10/25 07:40 FLOOR INSTALLATION MECHANIC (Rec: 01/10/25 07:47 FLOOR INSTALLATION MECHANIC Laptop) Physical Therapy Assessment Impairments Impairments Activity Tolerance,Balance,Functional Activities, Functional Mobility,Pain,ROM,Soft Tissue Mobility, Strength Goals 4 Impairment Strength Impairment B hip extensor strength in prone, on eval L 2+, R 3- Vaccine Customer Representative Goal (LTG) Pt will improve B hip extensor strength to at least 4-/ 5 in order to improve pain and function. LTG Duration 12 weeks 3 Impairment ROM Impairment L hip passive ER 19 degrees, R ER 35 degrees on eval Short Term Goal (STG Pt will improve L hip passive ROM to 35 degrees in ) prone in order to improve pain in L hip and function. STG Duration 6 weeks 2 Impairment Balance Impairment SLS on eval: RLE 20s with significant trunk sway and BUEs out to side, even surface LLE 6s with significant trunk sway and BUEs out to side , even surface Short Term Goal (STG Pt will improve balance via LLE SLS to 20s with BUEs to ) sides on even surface to improve safety and function. STG Duration 6 weeks Vaccine Customer Representative Goal (LTG) Pt will improve balance via B SLS to 30s on uneven surface to improve safety and function. LTG Duration 12 weeks 1 Impairment LEFS Impairment Score on eval: 56/80 Vaccine Customer Representative Goal (LTG) Pt will improve LEFS score to at least 70/80 to improve overall functional mobility LTG Duration 12 weeks Assessment Summary Assessment STM and SCS to L piriformis at beginning of session with successful decrease of tightness and pain. Pt tolerated all stretches and exercises well, HEP HO given, pt states she enjoys learning about the body and having a lot of exercises to work on at home. Physical Therapy Plan Frequency and Duration Frequency of 2x/Week Treatment Duration of 12 treatment (weeks) Plan of Care Start 01/03/25 Date Plan of Care End 03/28/25 Date Therapeutic Interventions Therapeutic Balance Training,Gait Training,Home Exercise Program, Interventions Joint Mobilizations,Manual Therapy,Neuromuscular Re- education,Soft Tissue Mobilization,Taping,Therapeutic Activities,Therapeutic Exercises Modalities Cold Pack/Ice Massage,Electric Stimulation,Hot Packs, Iontophoresis,Ultrasound Next Visit Focus/Plan Next Note Type Treatment Note Next Visit Plan Review HEP, prone B hip ext, modified SLS exercises
--- NOTE | 2025-02-06 19:49 | PT.OTN ---
Current Diagnoses Lumbago with sciatica, right side (02/06/25) Lumbago with sciatica, left side (02/06/25) Physical Therapy Treatment Note PT-OP-A Visit Information Start: 01/03/25 07:34 Freq: Status: Active Protocol: Document 02/06/25 08:18 LINOLEUM LAYER HELPER (Rec: 02/06/25 09:07 LINOLEUM LAYER HELPER Laptop) Out-Patient Physical Therapy Visit Information Visit Information Visit Type Progress Note Visit Start Time 08:18 Visit Stop Time 09:05 Visit Number 3 Number of TRAUMA REGISTRAR Visits 0 Evaluation Information Evaluation Date 01/03/25 PT-OP-B Current Condition Start: 01/03/25 07:34 Freq: Status: Active Protocol: Document 01/03/25 07:35 LINOLEUM LAYER HELPER (Rec: 01/03/25 08:23 LINOLEUM LAYER HELPER Laptop) Current Condition History of Current Condition Onset Date 3-4 years ago Current Complaints tail bone pain, B low back pain with radiation down BLEs to feet L>R History of Current Pt was getting out of a low car and had a zing of pain Condition at tail bone ~15s and didn't have again for months, never slowed her down and could not figure out what initiated it. Every once in a while would continue to have short lasting zing but got worse. Had PT for it a few years ago and it helped and was able to go back to active lifestyle and skiing. Has since came back and is now really intense/a lot worse. Tail bone always aches now, pain is burning across B low back. Pain shoots down BLEs to feet, LLE seems to be worse than RLE, BLEs feel weak, LLE has constant tingling now. Pt reports this has not affected her balance, exacerbated by going up stairs and squatting down to plant kumar, feels like she must urinate, has never lost control of bowel or bladder but feels like she must clench to make it to the bathroom after the episode and feels weakness when bearing down to eliminate bowels. When it happens she must stand still, lasts no more than 2 mins. Saw an orthopedist ~3 years ago and had an MRI done which revealed compression at L3-L4 nerve root. Referral also notes history of 2 coccyx fractures, one when a teenager and second was during childbirth. Tailbone aches when sitting for too long. Standing for a little bit seems to reduce the pain and walking, but unable to reduce symptoms once they occur and just has to wait out the symptoms. Treatment Goals Patient/Caregiver To get rid of the pain. Goals PT-OP-C Subjective Start: 01/03/25 07:34 Freq: Status: Active Protocol: Document 02/06/25 08:18 LINOLEUM LAYER HELPER (Rec: 02/06/25 09:07 LINOLEUM LAYER HELPER Laptop) OP-PT Subjective Patient Comments Patient Comments Pt has been gone on vacation and reports pain significantly increased with standing exercises. Standing stretches and heel/toe raises felt okay. She reports she has an appointment with a new orthopedist. PT-OP-D Balance Start: 01/03/25 07:34 Freq: Status: Active Protocol: Document 01/03/25 07:35 LINOLEUM LAYER HELPER (Rec: 01/03/25 08:23 LINOLEUM LAYER HELPER Laptop) Balance Tests Single Limb Standing Single Limb- Right 20s with significant trunk sway and BUEs out to side Single Limb- Left 6s with significant trunk sway and BUEs out to side PT-OP-F Manual Assessment Start: 01/03/25 07:34 Freq: Status: Active Protocol: Document 01/03/25 07:35 LINOLEUM LAYER HELPER (Rec: 01/04/25 20:33 LINOLEUM LAYER HELPER Laptop) Manual Assessments Other Manual Assessments Other Manual decreased tissue mobility and TTP at L glute med, Assessments piriformis, and lumbar paraspinals PT-OP-K Range of Motion Start: 01/03/25 07:34 Freq: Status: Active Protocol: Document 02/06/25 08:18 LINOLEUM LAYER HELPER (Rec: 02/06/25 09:07 LINOLEUM LAYER HELPER Laptop) Hip Goniometric Range of Motion Hip ROM Limitations Comments L IR 31 degrees, ER 29 degrees PT-OP-M Strength Start: 01/03/25 07:34 Freq: Status: Active Protocol: Document 02/06/25 08:18 LINOLEUM LAYER HELPER (Rec: 02/06/25 09:07 LINOLEUM LAYER HELPER Laptop) Hip Strength Hip Manual Muscle Testing L Extension (S1) 3- Fair- R Extension (S1) 3 Fair PT-OP-Q Treatments Start: 01/03/25 07:34 Freq: Status: Active Protocol: Document 02/06/25 08:18 LINOLEUM LAYER HELPER (Rec: 02/06/25 09:07 LINOLEUM LAYER HELPER Laptop) Therapeutic Exercises Supine Exercises Glute sets Supine Exercise Name Added to HEP Side bilateral Reps/Minutes x10 Comments pain free Heel slides Supine Exercise Name Added to HEP Side left Reps/Minutes x10 Comments cued for PPT, pain free range Hip abd Supine Exercise Name Added to HEP Side left Reps/Minutes x10 Comments pain free range Piriformis stretch Supine Exercise Name Modified figure 4 stretch, Added to HEP Side left Reps/Minutes 30s x3 Comments heel ~3 above ankle, stretch only without pain PT-OP-T Assessment and Plan Start: 01/03/25 07:34 Freq: Status: Active Protocol: Document 02/06/25 08:18 LINOLEUM LAYER HELPER (Rec: 02/06/25 09:07 LINOLEUM LAYER HELPER Laptop) Physical Therapy Assessment Goals 4 Impairment Strength Impairment B hip extensor strength in prone, on eval L 2+, R 3- [facility] Goal (LTG) Pt will improve B hip extensor strength to at least 4-/ 5 in order to improve pain and function. 02/06: Progressing: R 3/5, L 3-/5 LTG Duration 12 weeks 3 Impairment ROM Impairment L hip passive ER 19 degrees, R ER 35 degrees on eval Short Term Goal (STG Pt will improve L hip ER passive ROM to 35 degrees in ) prone in order to improve pain in L hip and function. 02/06: Progressing: L ER 29 degrees STG Duration 6 weeks 2 Impairment Balance Impairment SLS on eval: RLE 20s with significant trunk sway and BUEs out to side, even surface LLE 6s with significant trunk sway and BUEs out to side , even surface Short Term Goal (STG Pt will improve balance via LLE SLS to 20s with BUEs to ) sides on even surface to improve safety and function. 02/06: Progressing, 4s with neutral hip, 14s with hip in ER STG Duration 6 weeks Special Tax Auditor Goal (LTG) Pt will improve balance via B SLS to 30s on uneven surface to improve safety and function. LTG Duration 12 weeks 1 Impairment LEFS Impairment Score on eval: 56/80 [facility] Goal (LTG) Pt will improve LEFS score to at least 70/80 to improve overall functional mobility 02/06: Progressing per self report LTG Duration 12 weeks Assessment Summary Assessment Pt demonstrates progress towards all goals, with improvement noted in hip strength, ROM, balance, and functional mobility despite minimal PT sessions. Pt still demonstrates deficits and will benefit from continued skilled PT to progress towards goals in all areas. Physical Therapy Plan Frequency and Duration Frequency of 2x/Week Treatment Duration of 12 treatment (weeks) Plan of Care Start 01/03/25 Date Plan of Care End 03/28/25 Date Therapeutic Interventions Therapeutic Balance Training,Gait Training,Home Exercise Program, Interventions Joint Mobilizations,Manual Therapy,Neuromuscular Re- education,Soft Tissue Mobilization,Taping,Therapeutic Activities,Therapeutic Exercises Modalities Cold Pack/Ice Massage,Electric Stimulation,Hot Packs, Iontophoresis,Ultrasound Next Visit Focus/Plan Next Note Type Treatment Note Next Visit Plan Review hip HEP, modified SLS exercises, prone B hip ext
--- NOTE | 2025-02-08 09:47 | PT.OTN ---
Current Diagnoses Lumbago with sciatica, right side (02/08/25) Lumbago with sciatica, left side (02/08/25) Physical Therapy Treatment Note PT-OP-A Visit Information Start: 01/03/25 07:34 Freq: Status: Active Protocol: Document 02/08/25 09:03 BLOCKER HEATED METAL FORMS (Rec: 02/08/25 09:47 BLOCKER HEATED METAL FORMS Laptop) Out-Patient Physical Therapy Visit Information Visit Information Visit Type Treatment Note Visit Start Time 09:04 Visit Stop Time 09:45 Visit Number 4 Number of CARPENTER MINE Visits 0 Evaluation Information Evaluation Date 01/03/25 PT-OP-B Current Condition Start: 01/03/25 07:34 Freq: Status: Active Protocol: Document 01/03/25 07:35 BLOCKER HEATED METAL FORMS (Rec: 01/03/25 08:23 BLOCKER HEATED METAL FORMS Laptop) Current Condition History of Current Condition Onset Date 3-4 years ago Current Complaints tail bone pain, B low back pain with radiation down BLEs to feet L>R History of Current Pt was getting out of a low car and had a zing of pain Condition at tail bone ~15s and didn't have again for months, never slowed her down and could not figure out what initiated it. Every once in a while would continue to have short lasting zing but got worse. Had PT for it a few years ago and it helped and was able to go back to active lifestyle and skiing. Has since came back and is now really intense/a lot worse. Tail bone always aches now, pain is burning across B low back. Pain shoots down BLEs to feet, LLE seems to be worse than RLE, BLEs feel weak, LLE has constant tingling now. Pt reports this has not affected her balance, exacerbated by going up stairs and squatting down to plant kumar, feels like she must urinate, has never lost control of bowel or bladder but feels like she must clench to make it to the bathroom after the episode and feels weakness when bearing down to eliminate bowels. When it happens she must stand still, lasts no more than 2 mins. Saw an orthopedist ~3 years ago and had an MRI done which revealed compression at L3-L4 nerve root. Referral also notes history of 2 coccyx fractures, one when a teenager and second was during childbirth. Tailbone aches when sitting for too long. Standing for a little bit seems to reduce the pain and walking, but unable to reduce symptoms once they occur and just has to wait out the symptoms. Treatment Goals Patient/Caregiver To get rid of the pain. Goals PT-OP-C Subjective Start: 01/03/25 07:34 Freq: Status: Active Protocol: Document 02/08/25 09:03 BLOCKER HEATED METAL FORMS (Rec: 02/08/25 09:47 BLOCKER HEATED METAL FORMS Laptop) OP-PT Subjective Patient Comments Patient Comments Pt reports no current pain, during supine hip abd/add she feels a pull at groin in both directions. PT-OP-D Balance Start: 01/03/25 07:34 Freq: Status: Active Protocol: Document 01/03/25 07:35 BLOCKER HEATED METAL FORMS (Rec: 01/03/25 08:23 BLOCKER HEATED METAL FORMS Laptop) Balance Tests Single Limb Standing Single Limb- Right 20s with significant trunk sway and BUEs out to side Single Limb- Left 6s with significant trunk sway and BUEs out to side PT-OP-F Manual Assessment Start: 01/03/25 07:34 Freq: Status: Active Protocol: Document 01/03/25 07:35 BLOCKER HEATED METAL FORMS (Rec: 01/04/25 20:33 BLOCKER HEATED METAL FORMS Laptop) Manual Assessments Other Manual Assessments Other Manual decreased tissue mobility and TTP at L glute med, Assessments piriformis, and lumbar paraspinals PT-OP-K Range of Motion Start: 01/03/25 07:34 Freq: Status: Active Protocol: Document 02/06/25 08:18 BLOCKER HEATED METAL FORMS (Rec: 02/06/25 09:07 BLOCKER HEATED METAL FORMS Laptop) Hip Goniometric Range of Motion Hip ROM Limitations Comments L IR 31 degrees, ER 29 degrees PT-OP-M Strength Start: 01/03/25 07:34 Freq: Status: Active Protocol: Document 02/06/25 08:18 BLOCKER HEATED METAL FORMS (Rec: 02/06/25 09:07 BLOCKER HEATED METAL FORMS Laptop) Hip Strength Hip Manual Muscle Testing L Extension (S1) 3- Fair- R Extension (S1) 3 Fair PT-OP-Q Treatments Start: 01/03/25 07:34 Freq: Status: Active Protocol: Document 02/08/25 09:03 BLOCKER HEATED METAL FORMS (Rec: 02/08/25 09:47 BLOCKER HEATED METAL FORMS Laptop) Therapeutic Exercises Supine Exercises TA Supine Exercise Name PPT in hooklying Reps/Minutes 10x2 Comments VC for breathing Adductor exercise Supine Exercise Name ball squeezes in hooklying Side bilateral Equipment Used small soft ball Reps/Minutes 10x2 with 3s hold Adductor stretch Supine Exercise Name 1 sided butterfly stretch Side left Reps/Minutes 30sx2 Prone Exercises Hip ext Prone Exercise Name straight leg raise Side bilateral Reps/Minutes RLE 10x2, LLE 9+5 Sidelying Exercises Clamshells Side left Reps/Minutes x10 Manual Therapy Treatment Consent Patient gave verbal Yes consent for manual treatment Soft Tissue Mobilization Piriformis Body Location B piriformis, L lumbar paraspinals Mobilization Type Cross-Friction,Rolling,Trigger Point Release Intensity/Depth Moderate Body Position Prone Neuro Re-Education Treatment Balance Activities SLS Details modified with opposite toe stabilization Surface even Reps/Duration 30s each side Comments steady no LOB, L hip in neutral vs natural ER and noted significant L trendelenburg PT-OP-T Assessment and Plan Start: 01/03/25 07:34 Freq: Status: Active Protocol: Document 02/08/25 09:03 BLOCKER HEATED METAL FORMS (Rec: 02/08/25 09:47 BLOCKER HEATED METAL FORMS Laptop) Physical Therapy Assessment Goals 4 Impairment Strength Impairment B hip extensor strength in prone, on eval L 2+, R 3- [facility] Goal (LTG) Pt will improve B hip extensor strength to at least 4-/ 5 in order to improve pain and function. 02/06: Progressing: R 3/5, L 3-/5 LTG Duration 12 weeks 3 Impairment ROM Impairment L hip passive ER 19 degrees, R ER 35 degrees on eval Short Term Goal (STG Pt will improve L hip ER passive ROM to 35 degrees in ) prone in order to improve pain in L hip and function. 02/06: Progressing: L ER 29 degrees STG Duration 6 weeks 2 Impairment Balance Impairment SLS on eval: RLE 20s with significant trunk sway and BUEs out to side, even surface LLE 6s with significant trunk sway and BUEs out to side , even surface Short Term Goal (STG Pt will improve balance via LLE SLS to 20s with BUEs to ) sides on even surface to improve safety and function. 02/06: Progressing, 4s with neutral hip, 14s with hip in ER STG Duration 6 weeks Senior Lead Developer Goal (LTG) Pt will improve balance via B SLS to 30s on uneven surface to improve safety and function. LTG Duration 12 weeks 1 Impairment LEFS Impairment Score on eval: 56/80 Senior Lead Developer Goal (LTG) Pt will improve LEFS score to at least 70/80 to improve overall functional mobility 02/06: Progressing per self report LTG Duration 12 weeks Assessment Summary Assessment Pt tolerated all MT and L hip stretching and exercises without pain. Prone hip ext tolerated only 9 reps + 5 reps before feeling increased pain Physical Therapy Plan Frequency and Duration Frequency of 2x/Week Treatment Duration of 12 treatment (weeks) Plan of Care Start 01/03/25 Date Plan of Care End 03/28/25 Date Therapeutic Interventions Therapeutic Balance Training,Gait Training,Home Exercise Program, Interventions Joint Mobilizations,Manual Therapy,Neuromuscular Re- education,Soft Tissue Mobilization,Taping,Therapeutic Activities,Therapeutic Exercises Modalities Cold Pack/Ice Massage,Electric Stimulation,Hot Packs, Iontophoresis,Ultrasound Next Visit Focus/Plan Next Note Type Treatment Note Next Visit Plan Review PPT and advance as needed with HEP, review clamshells and add to HEP
--- NOTE | 2025-02-14 09:06 | PT.OTN ---
Current Diagnoses Lumbago with sciatica, right side (02/14/25) Lumbago with sciatica, left side (02/14/25) Physical Therapy Treatment Note PT OP: Lower Back/Lower Extremity Start: 02/14/25 08:17 Freq: Status: Active Protocol: Document 02/14/25 08:18 AB (Rec: 02/14/25 09:04 AB [id number]) Out-Patient Physical Therapy Visit Information Visit Information Visit Type Treatment Note Visit Start Time 08:20 Visit Stop Time 09:17 Visit Number 5 Number of JEWEL BLOCKER AND SAWYER Visits 1 Progress Note Due 03/08/25 OP-PT Subjective Patient Comments Patient Comments Patient reports she is about the same no worse. Patient reports she can do the figure 4 stretch better. Therapeutic Exercises Supine Exercises post pelvic tilt Supine Exercise Name HEP Reps/Minutes X 10 X 2 Comments initiates with tactile cues Hip Flexor stretch Supine Exercise Name off edge of bed Side bilateral Reps/Minutes 1 min each with AROM knee flexion Comments verbal cues for knee flexion Piriformis stretch Supine Exercise Name fig 4 and knee toward opp sh piriformis stretch HEP Side bilateral Reps/Minutes 60 seconds piriformis X 2 fig 4 X 1 Sidelying Exercises reverse clamshell Sidelying Exercise HEP Name Side left Reps/Minutes X 10 Clamshells Sidelying Exercise HEP Name Side left Reps/Minutes x10 Manual Therapy Treatment Consent Patient gave verbal Yes consent for manual treatment Soft Tissue Mobilization Piriformis Body Location B piriformis, L lumbar paraspinals Mobilization Type Cross-Friction,Rolling,Sustained Pressure Intensity/Depth Moderate Body Position Sidelying Manual Techniques MET for R AI L PI and pubic shot gun Reps/Duration 6 X 6 sec each Physical Therapy Assessment Goals 4 Impairment Strength Impairment B hip extensor strength in prone, on eval L 2+, R 3- Intermediate Goal (LTG) Pt will improve B hip extensor strength to at least 4-/ 5 in order to improve pain and function. 02/06: Progressing: R 3/5, L 3-/5 LTG Duration 12 weeks 3 Impairment ROM Impairment L hip passive ER 19 degrees, R ER 35 degrees on eval Short Term Goal (STG Pt will improve L hip ER passive ROM to 35 degrees in ) prone in order to improve pain in L hip and function. 02/06: Progressing: L ER 29 degrees STG Duration 6 weeks 2 Impairment Balance Impairment SLS on eval: RLE 20s with significant trunk sway and BUEs out to side, even surface LLE 6s with significant trunk sway and BUEs out to side , even surface Short Term Goal (STG Pt will improve balance via LLE SLS to 20s with BUEs to ) sides on even surface to improve safety and function. 02/06: Progressing, 4s with neutral hip, 14s with hip in ER STG Duration 6 weeks Superintendent Recreation Goal (LTG) Pt will improve balance via B SLS to 30s on uneven surface to improve safety and function. LTG Duration 12 weeks 1 Impairment LEFS Impairment Score on eval: 56/80 Intermediate Goal (LTG) Pt will improve LEFS score to at least 70/80 to improve overall functional mobility 02/06: Progressing per self report LTG Duration 12 weeks Assessment Summary Assessment Mis reports sitting feels good end of session, but she feels if she sits too long she will have to change her position to prevent pain. Physical Therapy Plan Frequency and Duration Frequency of 2x/Week Treatment Duration of 12 treatment (weeks) Plan of Care Start 01/03/25 Date Plan of Care End 03/28/25 Date Next Visit Focus/Plan Next Note Type Treatment Note Next Visit Plan advance as needed with HEP, review clamshells and add to HEP
--- NOTE | 2025-02-16 12:57 | PT.OTN ---
Current Diagnoses Lumbago with sciatica, right side (02/16/25) Lumbago with sciatica, left side (02/16/25) Physical Therapy Treatment Note PT OP: Lower Back/Lower Extremity Start: 02/14/25 08:17 Freq: Status: Active Protocol: Document 02/16/25 10:50 HRIS SPECIALIST (Rec: 02/16/25 11:39 HRIS SPECIALIST Laptop) Out-Patient Physical Therapy Visit Information Visit Information Visit Type Treatment Note Visit Start Time 10:50 Visit Stop Time 11:35 Visit Number 6 Number of FLOOR ASSEMBLER Visits 0 Progress Note Due 03/08/25 OP-PT Subjective Patient Comments Patient Comments Pt reports no pain today but feels very tingly down to foot. Almost had a large pain episode come on this morning while squatting sit on toilet but did not fully come on. Last episode was 4 days ago when walking up stairs too fast which is much less episodes than before starting PT. Therapeutic Exercises Supine Exercises Bridges Side bilateral Reps/Minutes x10 Comments no pain, frequent R HS cramping post pelvic tilt Supine Exercise Name 1. PPT hold with BKFO Side bilateral Reps/Minutes 5x2 each leg Comments able to maintain with mod difficulty Heel slides Supine Exercise Name Heel slides on exercise ball Side bilateral Reps/Minutes x10 Comments increased tingling to LLE but no pain Prone Exercises Prone UE raises Prone Exercise Name alt arms, pillows under chest Side bilateral Reps/Minutes x10 each UE Comments without onset of pain to LLE Quadruped UE raises Prone Exercise Name alt arms Side bilateral Reps/Minutes x4 reps Comments limited at 4 reps d/t onset of pain to LLE Other Exercises HEP review Other Exercise Name Reviewed ideal order of HEP per pt request Comments organized by position then by stretching before exercises Manual Therapy Treatment Consent Patient gave verbal Yes consent for manual treatment Soft Tissue Mobilization Back Body Location B thoracic and lumbar paraspinals Mobilization Type Cross-Friction,Rolling Intensity/Depth Deep Body Position Prone Comments thoracic>lumbar Physical Therapy Assessment Goals 4 Impairment Strength Impairment B hip extensor strength in prone, on eval L 2+, R 3- Sleeping Car Service Attendant Goal (LTG) Pt will improve B hip extensor strength to at least 4-/ 5 in order to improve pain and function. 02/06: Progressing: R 3/5, L 3-/5 LTG Duration 12 weeks 3 Impairment ROM Impairment L hip passive ER 19 degrees, R ER 35 degrees on eval Short Term Goal (STG Pt will improve L hip ER passive ROM to 35 degrees in ) prone in order to improve pain in L hip and function. 02/06: Progressing: L ER 29 degrees STG Duration 6 weeks 2 Impairment Balance Impairment SLS on eval: RLE 20s with significant trunk sway and BUEs out to side, even surface LLE 6s with significant trunk sway and BUEs out to side , even surface Short Term Goal (STG Pt will improve balance via LLE SLS to 20s with BUEs to ) sides on even surface to improve safety and function. 02/06: Progressing, 4s with neutral hip, 14s with hip in ER STG Duration 6 weeks Sleeping Car Service Attendant Goal (LTG) Pt will improve balance via B SLS to 30s on uneven surface to improve safety and function. LTG Duration 12 weeks 1 Impairment LEFS Impairment Score on eval: 56/80 Sleeping Car Service Attendant Goal (LTG) Pt will improve LEFS score to at least 70/80 to improve overall functional mobility 02/06: Progressing per self report LTG Duration 12 weeks Assessment Summary Assessment Pt demonstrates advancement in TA contraction this session, HEP advanced to leg fall outs. Pt attempted quadruped UE bird dogs but unable to finish x10 d/t increased pain to LLE but tolerated in prone. Pt with significant tightness to B thoracic paraspinals, tolerated STM and will benefit from more at future sessions. Physical Therapy Plan Frequency and Duration Frequency of 2x/Week Treatment Duration of 12 treatment (weeks) Plan of Care Start 01/03/25 Date Plan of Care End 03/28/25 Date Next Visit Focus/Plan Next Note Type Treatment Note Next Visit Plan advance PPT leg fall out as appropriate, STM to B thoracic/lumbar paraspinals, core strengthening in prone/quadruped, step ups 4 step
--- NOTE | 2025-02-20 20:55 | PT.OTN ---
Current Diagnoses Lumbago with sciatica, right side (02/20/25) Lumbago with sciatica, left side (02/20/25) Physical Therapy Treatment Note PT OP: Lower Back/Lower Extremity Start: 02/14/25 08:17 Freq: Status: Active Protocol: Document 02/20/25 08:26 COORDINATOR HOTELS (Rec: 02/20/25 09:04 COORDINATOR HOTELS Laptop) Out-Patient Physical Therapy Visit Information Visit Information Visit Type Treatment Note Visit Start Time 08:20 Visit Stop Time 09:02 Visit Number 7 Number of ELEMENTARY EDUCATOR Visits 0 Progress Note Due 03/08/25 OP-PT Subjective Patient Comments Patient Comments Pt reports she felt muscle soreness after last session, current pain is 1/10 to L buttock, has chronic numbness to L foot. Has noticed that when she slows down movement she can prevent pain spasms to LLE. Cardio Equipment Elliptical Duration (Minutes) 3 Resistance L2 Other terminated after 2.5 mins d/t increased pain to LLE Therapeutic Exercises Prone Exercises quad stretch Side bilateral Equipment Used sheet Reps/Minutes 1 min each leg Comments tolerated better and added to HEP, pt denies need for handout Standing Exercises Quad stretch Standing Exercise Chair stretch Name Side bilateral Equipment Used 17 chair Reps/Minutes [id number] Comments tolerated but increased pain in stance legs Manual Therapy Treatment Consent Patient gave verbal Yes consent for manual treatment Soft Tissue Mobilization Hip Body Location L ER's and abductors Body Position Hooklying Comments manual stretching into IR and and adduction 1 min x3, improved range of stretch and tolerance compared to previous sessions Piriformis Body Location L piriformis, L glute med Mobilization Type Rolling,Strain/Counterstrain Intensity/Depth Moderate Body Position Prone Comments x2 sessions of SCS to L piriformis with reduced pain Physical Therapy Assessment Goals 4 Impairment Strength Impairment B hip extensor strength in prone, on eval L 2+, R 3- Orthotic And Prosthetic Technician Goal (LTG) Pt will improve B hip extensor strength to at least 4-/ 5 in order to improve pain and function. 02/06: Progressing: R 3/5, L 3-/5 LTG Duration 12 weeks 3 Impairment ROM Impairment L hip passive ER 19 degrees, R ER 35 degrees on eval Short Term Goal (STG Pt will improve L hip ER passive ROM to 35 degrees in ) prone in order to improve pain in L hip and function. 02/06: Progressing: L ER 29 degrees STG Duration 6 weeks 2 Impairment Balance Impairment SLS on eval: RLE 20s with significant trunk sway and BUEs out to side, even surface LLE 6s with significant trunk sway and BUEs out to side , even surface Short Term Goal (STG Pt will improve balance via LLE SLS to 20s with BUEs to ) sides on even surface to improve safety and function. 02/06: Progressing, 4s with neutral hip, 14s with hip in ER STG Duration 6 weeks Orthotic And Prosthetic Technician Goal (LTG) Pt will improve balance via B SLS to 30s on uneven surface to improve safety and function. LTG Duration 12 weeks 1 Impairment LEFS Impairment Score on eval: 56/80 Mcfp Goal (LTG) Pt will improve LEFS score to at least 70/80 to improve overall functional mobility 02/06: Progressing per self report LTG Duration 12 weeks Assessment Summary Assessment Trialed elliptical this session but terminated after 2. 5 mins d/t increased pain to L piriformis. Tolerated SCS to L piriformis with reduction of pain. Tolerated prone B quad stretch vs standing quad stretch and added to HEP. Physical Therapy Plan Frequency and Duration Frequency of 2x/Week Treatment Duration of 12 treatment (weeks) Plan of Care Start 01/03/25 Date Plan of Care End 03/28/25 Date Next Visit Focus/Plan Next Note Type Treatment Note Next Visit Plan advance PPT leg fall out as appropriate, STM to B thoracic/lumbar paraspinals, core strengthening in prone/quadruped, step ups 4 step
--- NOTE | 2025-02-22 09:49 | PT.OTN ---
Current Diagnoses Lumbago with sciatica, right side (02/22/25) Lumbago with sciatica, left side (02/22/25) Physical Therapy Treatment Note PT OP: Lower Back/Lower Extremity Start: 02/14/25 08:17 Freq: Status: Active Protocol: Document 02/22/25 08:11 AB (Rec: 02/22/25 09:06 AB [id number]) Out-Patient Physical Therapy Visit Information Visit Information Visit Type Treatment Note Visit Start Time 08:16 Visit Stop Time 09:01 Visit Number 8 Number of AMUSEMENT PARK ENTERTAINER Visits 1 Progress Note Due 03/08/25 OP-PT Subjective Patient Comments Patient Comments Patient reports she may be a little worse, about same tried to do exercise standing up that she usually does lying down Therapeutic Exercises Supine Exercises hamstring stretch Side bilateral Reps/Minutes 60 sec each LE Comments verbal cues Standing Exercises glute med isomet Reps/Minutes L 45 sec R 8 sec Comments numbness @ 45 sec R LE immediately step up Standing Exercise 4 inch step Name Reps/Minutes X 2-3 each side Comments reportsNumbness L step up Hip Abd Side bilateral Reps/Minutes X 2-3 then X 15 Comments Verbal cues and visual for avoid toe out, trunk sidebend and dec height Manual Therapy Treatment Consent Patient gave verbal Yes consent for manual treatment Soft Tissue Mobilization Back Body Location lumbar paraspinals Mobilization Type Cross-Friction,Rolling,Sustained Pressure Intensity/Depth Moderate Body Position Sidelying Piriformis Body Location piriformis, glute area bilaterally Mobilization Type Cross-Friction,Strain/Counterstrain Intensity/Depth Moderate Body Position Sidelying Taping back Treatment Focus Pain and posture Comments I strips scap to T and L paraspinals Y for posture seated the over L5 S1 area I strip horizontal while leaning on raised mat Manual Techniques contract relax Type into L piriformis stretch Physical Therapy Assessment Goals 4 Impairment Strength Impairment B hip extensor strength in prone, on eval L 2+, R 3- Astronaut Mission Specialist Goal (LTG) Pt will improve B hip extensor strength to at least 4-/ 5 in order to improve pain and function. 02/06: Progressing: R 3/5, L 3-/5 LTG Duration 12 weeks 3 Impairment ROM Impairment L hip passive ER 19 degrees, R ER 35 degrees on eval Short Term Goal (STG Pt will improve L hip ER passive ROM to 35 degrees in ) prone in order to improve pain in L hip and function. 02/06: Progressing: L ER 29 degrees STG Duration 6 weeks 2 Impairment Balance Impairment SLS on eval: RLE 20s with significant trunk sway and BUEs out to side, even surface LLE 6s with significant trunk sway and BUEs out to side , even surface Short Term Goal (STG Pt will improve balance via LLE SLS to 20s with BUEs to ) sides on even surface to improve safety and function. 02/06: Progressing, 4s with neutral hip, 14s with hip in ER STG Duration 6 weeks Jail Goal (LTG) Pt will improve balance via B SLS to 30s on uneven surface to improve safety and function. LTG Duration 12 weeks 1 Impairment LEFS Impairment Score on eval: 56/80 Astronaut Mission Specialist Goal (LTG) Pt will improve LEFS score to at least 70/80 to improve overall functional mobility 02/06: Progressing per self report LTG Duration 12 weeks Assessment Summary Assessment Patient with increased radicular symptoms for step up exercises and during manual L 4- L5 bilaterally with sustained pressure. Pt agreeable to trial of taping this session. Physical Therapy Plan Frequency and Duration Frequency of 2x/Week Treatment Duration of 12 treatment (weeks) Plan of Care Start 01/03/25 Date Plan of Care End 03/28/25 Date Next Visit Focus/Plan Next Note Type Treatment Note Next Visit Plan advance PPT leg fall out as appropriate, STM to B thoracic/lumbar paraspinals, core strengthening in prone/quadruped, revisit step ups 4 step
--- NOTE | 2025-03-01 19:58 | PT.OTN ---
Current Diagnoses Lumbago with sciatica, right side (03/01/25) Lumbago with sciatica, left side (03/01/25) Physical Therapy Treatment Note PT OP: Lower Back/Lower Extremity Start: 02/14/25 08:17 Freq: Status: Active Protocol: Document 03/01/25 13:04 GARMENT LINER (Rec: 03/01/25 13:52 GARMENT LINER Laptop) Out-Patient Physical Therapy Visit Information Visit Information Visit Type Treatment Note Visit Start Time 13:03 Visit Stop Time 13:49 Visit Number 9 Number of DINKEY ENGINE FIRER Visits 0 Progress Note Due 03/08/25 OP-PT Subjective Patient Comments Patient Comments Pt reports she is having more pain today than normal but different pain right under R butt bone, aggravated to 6-7/10 with sitting. She also has lumbar MRI results which state no big changes since last MRI 2021 and mild-moderate stenosis to B L4-L5. Therapeutic Exercises Sitting Exercises Foam rolling Sitting Exercise FR HS, time spent practicing body positioning Name Side left Equipment Used full FR Reps/Minutes 10 mins Comments Added to HEP, pt has FR Standing Exercises Hip Ext Standing Exercise HEP review Name Side bilateral Reps/Minutes x10 each side Comments R painful with straight leg, VC for bent knee to take out painful HS Manual Therapy Treatment Consent Patient gave verbal Yes consent for manual treatment Soft Tissue Mobilization Hip Body Location L medial/proximal HS and muscle belly Mobilization Type Instrument Assisted,Myofascial Release,Rolling Intensity/Depth Moderate Body Position sidelying and prone Comments STM and cupping with positive response Physical Therapy Assessment Goals 4 Impairment Strength Impairment B hip extensor strength in prone, on eval L 2+, R 3- Customer Operations Manager Goal (LTG) Pt will improve B hip extensor strength to at least 4-/ 5 in order to improve pain and function. 02/06: Progressing: R 3/5, L 3-/5 LTG Duration 12 weeks 3 Impairment ROM Impairment L hip passive ER 19 degrees, R ER 35 degrees on eval Short Term Goal (STG Pt will improve L hip ER passive ROM to 35 degrees in ) prone in order to improve pain in L hip and function. 02/06: Progressing: L ER 29 degrees STG Duration 6 weeks 2 Impairment Balance Impairment SLS on eval: RLE 20s with significant trunk sway and BUEs out to side, even surface LLE 6s with significant trunk sway and BUEs out to side , even surface Short Term Goal (STG Pt will improve balance via LLE SLS to 20s with BUEs to ) sides on even surface to improve safety and function. 02/06: Progressing, 4s with neutral hip, 14s with hip in ER STG Duration 6 weeks Customer Operations Manager Goal (LTG) Pt will improve balance via B SLS to 30s on uneven surface to improve safety and function. LTG Duration 12 weeks 1 Impairment LEFS Impairment Score on eval: 56/80 Customer Operations Manager Goal (LTG) Pt will improve LEFS score to at least 70/80 to improve overall functional mobility 02/06: Progressing per self report LTG Duration 12 weeks Assessment Summary Assessment reports feeling better at end of session, recommended FR, heat, bending knee during hip ext exercise, and reclining seat in car for improved tolerance. Physical Therapy Plan Frequency and Duration Frequency of 2x/Week Treatment Duration of 12 treatment (weeks) Plan of Care Start 01/03/25 Date Plan of Care End 03/28/25 Date Next Visit Focus/Plan Next Note Type Progress Note Next Visit Plan advance PPT leg fall out as appropriate, STM to B thoracic/lumbar paraspinals, core strengthening in prone/quadruped, revisit step ups 4 step
--- NOTE | 2025-03-07 09:45 | PT.OPPOC ---
Physical, Occupational & Speech Therapy At [facility] Current Diagnoses Lumbago with sciatica, right side (03/09/25) Lumbago with sciatica, left side (03/09/25) Visit Care Team Role Provider Type Neema Mac PA-C Attending Provider Non-Staff Family Provider Primary Care Provider Referring Provider Specialty: Internal Medicine Address: [address] [place] [address], [id number] Email: Plan Of Care PT OP: Lower Back/Lower Extremity Start: 02/14/25 08:17 Freq: Status: Active Protocol: Document 03/09/25 08:35 SITE MEDICAL DIRECTOR (Rec: 03/07/25 09:06 SITE MEDICAL DIRECTOR Laptop) Out-Patient Physical Therapy Visit Information Visit Information Visit Type Progress Note Visit Start Time 08:23 Visit Stop Time 09:06 Visit Number 10 Number of LOAN ASSOCIATE Visits 0 Progress Note Due 04/06/25 OP-PT Subjective Patient Comments Patient Comments Pt reports L hamstring is feeling a lot better after last session but LLE still feels weak. Pain to L hip and down leg has been overall better, currently at 3/10 . Hip Strength Hip Manual Muscle Testing L Extension (S1) 3- Fair- R Extension (S1) 4- Good- Therapeutic Exercises Supine Exercises Piriformis stretch Supine Exercise Name fig 4 Side bilateral Reps/Minutes 60s each side Comments HEP review Prone Exercises Hip ext Prone Exercise Name knee bent donkey kicks Side bilateral Reps/Minutes x10 each LE Comments Added to HEP without HO per pt request Sitting Exercises Piriformis stretch Sitting Exercise figure 4 Name Side bilateral Reps/Minutes 1 min each side Comments Added to HEP without HO per pt request Clamshell Sitting Exercise sustained hold prior to balance activity Name Side bilateral Resistance L4 TB Reps/Minutes 1 min x2 Manual Therapy Treatment Consent Patient gave verbal Yes consent for manual treatment Soft Tissue Mobilization Hip Body Location L IR/ER manual stretching Body Position Prone Comments PROM with stretch overpressure, contract relax into ER to gain ROM with very positive results Neuro Re-Education Treatment Balance Activities SLS Surface even Comments R: 1 min 16s L: 46s without hip drop foot in neutral Physical Therapy Assessment Goals 4 Impairment Strength Impairment B hip extensor strength in prone, on eval L 2+, R 3- Automatic Beading Lathe Operator Goal (LTG) Pt will improve B hip extensor strength to at least 4-/ 5 in order to improve pain and function. 02/06: Progressing: R 3/5, L 3-/5 03/07: Progressing on R 4-/5, not progressing on L 3-/5 LTG Duration 12 weeks 3 Impairment ROM Impairment L hip passive ER 19 degrees, R ER 35 degrees on eval Short Term Goal (STG Pt will improve L hip ER passive ROM to 35 degrees in ) prone in order to improve pain in L hip and function. 02/06: Progressing: L ER 29 degrees 03/07: MET, L ER 50 degrees after manual stretching and contract relax STG Duration 6 weeks MET 2 Impairment Balance Impairment SLS on eval: RLE 20s with significant trunk sway and BUEs out to side, even surface LLE 6s with significant trunk sway and BUEs out to side , even surface Short Term Goal (STG Pt will improve balance via LLE SLS to 20s with BUEs to ) sides on even surface to improve safety and function. 02/06: Progressing, 4s with neutral hip, 14s with hip in ER 03/07: MET LLE 46s without compensations even surface STG Duration 6 weeks MET Automatic Beading Lathe Operator Goal (LTG) Pt will improve balance via B SLS to 30s on uneven surface to improve safety and function. LTG Duration 05/23/25 1 Impairment LEFS Impairment Score on eval: 56/80 Prison Goal (LTG) Pt will improve LEFS score to at least 70/80 to improve overall functional mobility 02/06: Progressing per self report 03/06: Not progressing, 44/80 LTG Duration 05/23/25 Assessment Summary Assessment Pt is progressing with L hip ER after PROM stretching and contract relax to meet goal, reviewed supine and added sitting stretch into ER to maintain degrees gained. Pt is also progressing with R hip extensor strength but not L hip extensor strength, given hip extension HEP to progress towards goal. Pt has progressed well with balance via SLS to meet STG of 30s on LLE in neutral alignment on even floor, will progress BLEs to SLS on foam. Pt scored more impaired on LEFS and is not progressing towards goal despite improvements in all areas except L hip extensor strength. Continue skilled PT to continue progressing towards all goals. POC dates extended 8 weeks to allow for continued progress towards goals. Physical Therapy Plan Frequency and Duration Frequency of 2x/Week Treatment Duration of 20 treatment (weeks) Plan of Care Start 01/03/25 Date Plan of Care End 05/23/25 Date Next Visit Focus/Plan Next Note Type Treatment Note Next Visit Plan L hip extensor strengthening, SLS on foam, step ups, quad strengthening Plan of Care Dates Plan of Care Start Date 01/03/25 Plan of Care End Date 05/23/25 Electronically Signed by: Shanice Simental, PT 03/09/25 0968 If you are in agreement with this Plan of Care, please return a signed and dated copy. I have reviewed this Plan of Care and certify that the skilled therapy services above are required to meet the patient?s needs. Physician Signature Date Printed Name and Credentials Clinical Instructor Signature Printed Name and Credentials
--- NOTE | 2025-03-07 13:02 | PT.OPPOC ---
Physical, Occupational & Speech Therapy At [facility] Current Diagnoses Lumbago with sciatica, right side (03/09/25) Lumbago with sciatica, left side (03/09/25) Visit Care Team Role Provider Type Neema Mac PA-C Attending Provider Non-Staff Family Provider Primary Care Provider Referring Provider Specialty: Internal Medicine Address: [address] [place] [address], [id number] Email: Plan Of Care PT OP: Lower Back/Lower Extremity Start: 02/14/25 08:17 Freq: Status: Active Protocol: Document 03/09/25 08:35 SUPERINTENDENT OIL WELL SERVICES (Rec: 03/07/25 09:06 SUPERINTENDENT OIL WELL [employer] Laptop) Out-Patient Physical Therapy Visit Information Visit Information Visit Type Progress Note Visit Start Time 08:23 Visit Stop Time 09:06 Visit Number 10 Number of STRIPE MARKER Visits 0 Progress Note Due 04/06/25 OP-PT Subjective Patient Comments Patient Comments Pt reports L hamstring is feeling a lot better after last session but LLE still feels weak. Pain to L hip and down leg has been overall better, currently at 3/10 . Hip Strength Hip Manual Muscle Testing L Extension (S1) 3- Fair- R Extension (S1) 4- Good- Therapeutic Exercises Supine Exercises Piriformis stretch Supine Exercise Name fig 4 Side bilateral Reps/Minutes 60s each side Comments HEP review Prone Exercises Hip ext Prone Exercise Name knee bent donkey kicks Side bilateral Reps/Minutes x10 each LE Comments Added to HEP without HO per pt request Sitting Exercises Piriformis stretch Sitting Exercise figure 4 Name Side bilateral Reps/Minutes 1 min each side Comments Added to HEP without HO per pt request Clamshell Sitting Exercise sustained hold prior to balance activity Name Side bilateral Resistance L4 TB Reps/Minutes 1 min x2 Manual Therapy Treatment Consent Patient gave verbal Yes consent for manual treatment Soft Tissue Mobilization Hip Body Location L IR/ER manual stretching Body Position Prone Comments PROM with stretch overpressure, contract relax into ER to gain ROM with very positive results Neuro Re-Education Treatment Balance Activities SLS Surface even Comments R: 1 min 16s L: 46s without hip drop foot in neutral Physical Therapy Assessment Goals 4 Impairment Strength Impairment B hip extensor strength in prone, on eval L 2+, R 3- Milk Vendor Goal (LTG) Pt will improve B hip extensor strength to at least 4-/ 5 in order to improve pain and function. 02/06: Progressing: R 3/5, L 3-/5 03/07: Progressing on R 4-/5, not progressing on L 3-/5 LTG Duration 12 weeks 3 Impairment ROM Impairment L hip passive ER 19 degrees, R ER 35 degrees on eval Short Term Goal (STG Pt will improve L hip ER passive ROM to 35 degrees in ) prone in order to improve pain in L hip and function. 02/06: Progressing: L ER 29 degrees 03/07: MET, L ER 50 degrees after manual stretching and contract relax STG Duration 6 weeks MET 2 Impairment Balance Impairment SLS on eval: RLE 20s with significant trunk sway and BUEs out to side, even surface LLE 6s with significant trunk sway and BUEs out to side , even surface Short Term Goal (STG Pt will improve balance via LLE SLS to 20s with BUEs to ) sides on even surface to improve safety and function. 02/06: Progressing, 4s with neutral hip, 14s with hip in ER 03/07: MET LLE 46s without compensations even surface STG Duration 6 weeks MET Milk Vendor Goal (LTG) Pt will improve balance via B SLS to 30s on uneven surface to improve safety and function. LTG Duration 05/23/25 1 Impairment LEFS Impairment Score on eval: 56/80 Usp Goal (LTG) Pt will improve LEFS score to at least 70/80 to improve overall functional mobility 02/06: Progressing per self report 03/06: Not progressing, 44/80 LTG Duration 05/23/25 Assessment Summary Assessment Pt is progressing with L hip ER after PROM stretching and contract relax to meet goal, reviewed supine and added sitting stretch into ER to maintain degrees gained. Pt is also progressing with R hip extensor strength but not L hip extensor strength, given hip extension HEP to progress towards goal. Pt has progressed well with balance via SLS to meet STG of 30s on LLE in neutral alignment on even floor, will progress BLEs to SLS on foam. Pt scored more impaired on LEFS and is not progressing towards goal despite improvements in all areas except L hip extensor strength. Continue skilled PT to continue progressing towards all goals. POC dates extended 8 weeks to allow for continued progress towards goals. Physical Therapy Plan Frequency and Duration Frequency of 2x/Week Treatment Duration of 20 treatment (weeks) Plan of Care Start 01/03/25 Date Plan of Care End 05/23/25 Date Next Visit Focus/Plan Next Note Type Treatment Note Next Visit Plan L hip extensor strengthening, SLS on foam, step ups, quad strengthening Plan of Care Dates Plan of Care Start Date 01/03/25 Plan of Care End Date 05/23/25 Electronically Signed by: Shanice Simental, PT 03/09/25 0977 If you are in agreement with this Plan of Care, please return a signed and dated copy. I have reviewed this Plan of Care and certify that the skilled therapy services above are required to meet the patient?s needs. Physician Signature Date Printed Name and Credentials Clinical Instructor Signature Printed Name and Credentials
--- NOTE | 2025-03-09 10:43 | PT.OTN ---
Current Diagnoses Lumbago with sciatica, right side (03/09/25) Lumbago with sciatica, left side (03/09/25) Physical Therapy Treatment Note PT OP: Lower Back/Lower Extremity Start: 02/14/25 08:17 Freq: Status: Active Protocol: Document 03/09/25 07:26 AB (Rec: 03/09/25 09:25 AB [id number]) Out-Patient Physical Therapy Visit Information Visit Information Visit Type Treatment Note Visit Start Time 08:18 Visit Stop Time 09:02 Visit Number 11 Number of PUBLIC SPEAKING PROFESSOR Visits 1 Progress Note Due 04/06/25 OP-PT Subjective Patient Comments Patient Comments Patient reports she is the same, reports had increased symptoms down LE's at home post previous session, and some loss of bladder control. L LE is always numb sometimes both legs, back pain 2/10 start of session. Therapeutic Exercises Supine Exercises Hip Flexor stretch Supine Exercise Name off edge of bed Side bilateral Reps/Minutes 1 min each with AROM knee flexion Comments verbal cues for knee flexion Piriformis stretch Supine Exercise Name fig 4 Side bilateral Reps/Minutes 60s each side Comments revisit post manual and supine to compare to seated str symp at home Prone Exercises Hip ext Prone Exercise Name knee bent donkey kicks 2 pillows under abdominal area Side bilateral Reps/Minutes x 5 each LE Comments VCbrace with abdominal muscles Manual Therapy Treatment Consent Patient gave verbal Yes consent for manual treatment Soft Tissue Mobilization Hip Body Location illipsoas bilateral Mobilization Type Cross-Friction,Rolling Intensity/Depth Moderate Body Position Hooklying Back Body Location lumbar paraspinals Mobilization Type Cross-Friction,Rolling,Sustained Pressure Intensity/Depth Moderate Body Position Sidelying Piriformis Body Location piriformis, glute area bilaterally Mobilization Type Cross-Friction,Strain/Counterstrain Intensity/Depth Moderate Body Position Sidelying Physical Therapy Assessment Goals 4 Impairment Strength Impairment B hip extensor strength in prone, on eval L 2+, R 3- Custodial Goal (LTG) Pt will improve B hip extensor strength to at least 4-/ 5 in order to improve pain and function. 02/06: Progressing: R 3/5, L 3-/5 03/07: Progressing on R 4-/5, not progressing on L 3-/5 LTG Duration 12 weeks 3 Impairment ROM Impairment L hip passive ER 19 degrees, R ER 35 degrees on eval Short Term Goal (STG Pt will improve L hip ER passive ROM to 35 degrees in ) prone in order to improve pain in L hip and function. 02/06: Progressing: L ER 29 degrees 03/07: MET, L ER 50 degrees after manual stretching and contract relax STG Duration 6 weeks MET 2 Impairment Balance Impairment SLS on eval: RLE 20s with significant trunk sway and BUEs out to side, even surface LLE 6s with significant trunk sway and BUEs out to side , even surface Short Term Goal (STG Pt will improve balance via LLE SLS to 20s with BUEs to ) sides on even surface to improve safety and function. 02/06: Progressing, 4s with neutral hip, 14s with hip in ER 03/07: MET LLE 46s without compensations even surface STG Duration 6 weeks MET Crankshaft Straightener Goal (LTG) Pt will improve balance via B SLS to 30s on uneven surface to improve safety and function. LTG Duration 12 weeks 1 Impairment LEFS Impairment Score on eval: 56/80 Crankshaft Straightener Goal (LTG) Pt will improve LEFS score to at least 70/80 to improve overall functional mobility 02/06: Progressing per self report 03/06: Not progressing, 44/80 LTG Duration 12 weeks Assessment Summary Assessment Mis reports the L LE is a little more numb end of session, but not bad. Physical Therapy Plan Frequency and Duration Frequency of 2x/Week Treatment Duration of 12 treatment (weeks) Plan of Care Start 01/03/25 Date Plan of Care End 03/28/25 Date Next Visit Focus/Plan Next Note Type Treatment Note Next Visit Plan L hip extensor strengthening, SLS on foam, step ups, quad strengthening
--- NOTE | 2025-03-28 10:35 | PT.OPDS ---
Current Diagnoses Lumbago with sciatica, right side (03/28/25) Lumbago with sciatica, left side (03/28/25) Visit Care Team Role Provider Type Neema Mac PA-C Attending Provider Non-Staff Family Provider Primary Care Provider Referring Provider Specialty: Internal Medicine Address: [address] [place] [address], [id number] Email: Visit Number Visit Number 12 Discharge Summary PT OP: Lower Back/Lower Extremity Start: 02/14/25 08:17 Freq: Status: Active Protocol: Document 03/28/25 09:47 JZ (Rec: 03/28/25 10:35 JZ [id number]) Out-Patient Physical Therapy Visit Information Visit Information Visit Type Discharge Summary Visit Start Time 09:50 Visit Stop Time 10:12 Visit Number 12 Number of BOARDING MOTHER Visits 0 Progress Note Due 04/27/25 OP-PT Subjective Patient Comments Patient Comments Patient reports she had back pain that started in 2021. She reports the pain has been worse since July 2024 . She reports the symptoms last 2-3 minutes and she cannot walk during the episodes. She has an episode 1-2 times per week at this point. She notes her pain level at baseline is 2/10. She reports her pain gets up to a 10/10 during an episode and she notes severe weakness in her L LE and numbness and tingling bilaterally. She notes some numbness and tingling in L LE at baseline. She notes aggravators include going up stairs and walking up hills. She does endorse temporary saddle parasthesias and loss of bladder control as well as saddle paresthesias during severe episodes. Self-Care/Home Management Treatment Education Other Education Discussed severity of symptoms and importance of prompt visit with neurosurgery for MRI. Discussed importance of avoiding activities that may provoke severe symptoms . Discussed importance of communicating saddle paresthesia and loss of bladder control to her primary care and neurosurgery. Discussed possibility of returning to PT when severe stenosis has been ruled out . Physical Therapy Assessment Goals 4 Impairment Strength Impairment B hip extensor strength in prone, on eval L 2+, R 3- Electro Optical Engineer Goal (LTG) Pt will improve B hip extensor strength to at least 4-/ 5 in order to improve pain and function. 02/06: Progressing: R 3/5, L 3-/5 8/27: Progressing on R 4-/5, not progressing on L 3-/5 LTG Duration 12 weeks 3 Impairment ROM Impairment L hip passive ER 19 degrees, R ER 35 degrees on eval Short Term Goal (STG Pt will improve L hip ER passive ROM to 35 degrees in ) prone in order to improve pain in L hip and function. 02/06: Progressing: L ER 29 degrees 03/07: MET, L ER 50 degrees after manual stretching and contract relax STG Duration 6 weeks MET 2 Impairment Balance Impairment SLS on eval: RLE 20s with significant trunk sway and BUEs out to side, even surface LLE 6s with significant trunk sway and BUEs out to side , even surface Short Term Goal (STG Pt will improve balance via LLE SLS to 20s with BUEs to ) sides on even surface to improve safety and function. 02/06: Progressing, 4s with neutral hip, 14s with hip in ER 03/07: MET LLE 46s without compensations even surface STG Duration 6 weeks MET Halfway Goal (LTG) Pt will improve balance via B SLS to 30s on uneven surface to improve safety and function. LTG Duration 12 weeks 1 Impairment LEFS Impairment Score on eval: 56/80 Halfway Goal (LTG) Pt will improve LEFS score to at least 70/80 to improve overall functional mobility 02/06: Progressing per self report 03/06: Not progressing, 44/80 LTG Duration 12 weeks Assessment Summary Assessment Patient presenting to PT with reports of recent increase in severe symptoms including saddle paresthesias and loss of bladder control. Due to worsening of these symptoms, patient was advised to consult with neurosurgery as soon as possible and was advised that she will be discharged from PT for the time being until she has been cleared by neuro. Goals and objective measures were not assessed due to the subjective report noted above. Plan to discharge plan of care. Physical Therapy Plan Discharge Physical Therapy Discharge Comments Worsening in symptoms requiring consult with neurosurgery.
== END 2025-04-02 09:41 | disposition home or self-care (01) ==
LOC: PHYS 09:45
PROVIDERS: Family Provider Physician Assistant; PCP Physician Assistant; Referring Provider Physician Assistant; Visit Provider Physician Assistant
DX: M54.42 Lumbago with sciatica, left side (principal); M54.41 Lumbago with sciatica, right side
CPT/HCPCS: 97110; 97112; 97140; 97535